=== PATIENT | male | born 1935 | race Two or more races ===

== ENCOUNTER 2017-05-19 17:33 | Emergency (ER) | payer MEDICARE ==
[2017-05-19 17:48] VITALS: BP 129/78
--- NOTE | 2017-05-19 17:51 | UC ---
Dental HPI - HPI Summary HPI Summary: Pt presents s/p fall 30min [employer]. He tells me that he was walking around [place] and tripped on an uneven piece of sidewalk. Fell face first and tried to put his hands out, but could not in time and hit his mouth on the ground. Injured his upper lip and fractured his front upper tooth. No LOC. Came directly to . Denies headache, dizziness, vision changes, or weakness. - History of Current Complaint Chief Complaint: UCDentalProblem Stated Complaint: NOSE,MOUTH INJURIES FROM FALL Time Seen by Provider: 05/19/17 17:50 Hx Obtained From: Patient Severity: Mild Pain Intensity: 2 Pain Scale Used: 0-10 Numeric - Allergies/Home Medications Allergies/Adverse Reactions: Allergies Allergy/AdvReac Type Severity Reaction Status Date / Time No Known Allergies Allergy Verified 05/19/17 17:45 Home Medications: Home Medications NK [No Home Medications Reported] 05/19/17 [History Confirmed 05/19/17] PMH/Surg Hx/FS Hx/Imm Hx Previously Healthy: Yes - Surgical History Surgical History: None - Family History Known Family History: Positive: Unknown - Social History Occupation: Retired Lives: With Family Alcohol Use: None Substance Use Type: None Smoking Status (MU): Never Smoked Tobacco Review of Systems Constitutional: Negative Skin: Other - Upper lip lac Eyes: Negative ENT: Dental Pain Respiratory: Negative Cardiovascular: Negative Gastrointestinal: Negative Musculoskeletal: Negative Neurological: Negative Psychological: Negative All Other Systems Reviewed And Are Negative: Yes Physical Exam - Summary Physical Exam Summary: GENERAL: NAD. WDWN. No pain distress. SKIN: 2mm puncture wound to midline upper lip on the inside mucosa. HEENT: Head: AT/NC. No dahl's sign. Eyes: PERRLA. EOM intact. Conjunctiva clear without inflammation or discharge. Ears: Hearing grossly normal. TMs intact, no bulging, erythema, or edema. DENTAL: Fracture and lateral displacement of tooth #9 NECK: Supple. Nontender. FROM CHEST: CTAB. No r/r/w. No accessory muscle use. Breathing comfortably and in no distress. CV: RRR. Without m/r/g. Pulses intact. Brisk cap refill. MSK: FROM b/l shoulders, elbows, and wrists. NTTP. NEURO: A&Ox3. 3 word recall, remote, recent memory, ability to follow 2-step directions, and attention intact. CN II XII grossly intact. [id number] are intact. Gait with normal base. Romberg: maintains balance, no pronator drift. Normal speech. No facial drooping. PSYCH: Age appropriate behavior. Triage Information Reviewed: Yes Vital Signs: Initial Vital Signs Temp 98.6 F 05/19/17 17:42 Pulse 65 05/19/17 17:42 Resp 18 05/19/17 17:42 BP 129/78 05/19/17 17:42 Pulse Ox 99 05/19/17 17:42 Dental Complaint Course/Dx - Course Course Of Treatment: Dental fracture. Lip puncture wound by tooth. Fall. No need for sutures. Advised f/u with dentist MYRA for loose and fractured tooth. - Differential Dx/Diagnosis Provider Diagnoses: Dental fracture tooth #9. Upper lip puncture wound. Fall Discharge - Discharge Plan Condition: Stable Disposition: HOME Patient Education Materials: Acute Dental Trauma (ED) Referrals: Shad Estes MD [Primary Care Provider] - Additional Instructions: If you develop a fever, shortness of breath, chest pain, new or worsening symptoms - please call your PCP or go to the ED. 1) Please call your dentist as soon as possible for a follow up appointment regarding your tooth
== END 2017-05-19 18:06 | disposition home or self-care (01) ==
LOC: UCEAST 17:33
DX: S02.5XXA Fracture of tooth (traumatic), initial encounter for closed fracture (principal); S01.531A Puncture wound without foreign body of lip, initial encounter; W01.198A Fall on same level from slipping, tripping and stumbling with subsequent striking against other object, initial encounter; Y93.01 Activity, walking, marching and hiking; Y92.214 College as the place of occurrence of the external cause
CPT/HCPCS: 99211; G0463

== ENCOUNTER 2017-10-11 12:29 | Inpatient (IN) | payer MEDICARE ==
--- NOTE | 2017-10-04 03:53 | HP ---
HISTORY AND PHYSICAL: DATE OF ADMISSION/SURGERY: 10/11/17 DATE OF OFFICE VISIT: 10/03/17 SURGEON: Karyn Alvarez MD * (DICTATED BY NEVIN MCKEON) PROCEDURE: Right total knee arthroplasty. CHIEF COMPLAINT: Right knee pain. HISTORY OF PRESENT ILLNESS: Mr. 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 He has failed conservative treatment and elected to proceed with a right total knee arthroplasty, which is scheduled for 10/11/[address] Alvarez. PAST MEDICAL HISTORY: Denies. PAST SURGICAL HISTORY: Mitral valve repair, tonsillectomy, and trabeculectomy. CURRENT MEDICATIONS: Flaxseed. ALLERGIES: None. FAMILY HISTORY: Denies. SOCIAL HISTORY: He is an 82-year-old gentleman, lives with his spouse. He is a retired professor. He does not smoke or use drugs or alcohol. REVIEW OF SYSTEMS: A complete 14-point review of systems was reviewed with the patient. It is all negative or noncontributory. He denies history of DVT, PE, hepatitis, HIV, or anesthesia problems. PHYSICAL EXAMINATION GENERAL: He is well developed, well nourished, in no acute distress. VITAL SIGNS: He stands 68 inches tall, weighs 137 pounds. His blood pressure is 104/80 and his heart rate is 52. HEENT: Normocephalic, atraumatic. NECK: Supple. No palpable lymph nodes. PULMONARY: The lungs are clear to auscultation bilaterally. CARDIO: Regular rate and rhythm. Strong S1, S2. ABDOMEN: Soft, nontender, nondistended. NEUROLOGICAL: He is alert and oriented x3. MUSCULOSKELETAL: Right lower extremity: The skin is intact. There are no open wounds or abrasions. There is a moderate joint effusion. He has some tenderness over the medial and lateral joint line. His range of motion is 15 to 120 degrees of flexion. He has a 2+ posterior tibialis pulse and a 1+ dorsalis pedis pulse. He has intact sensation in his lower extremity. Muscle group strengths are intact at 5/5. ASSESSMENT AND PLAN: Mr. Hickey is an 82-year-old gentleman with end-stage osteoarthritis of the right knee. He has failed conservative treatment and elected to proceed with a right total knee arthroplasty, which is scheduled for 10/11/[address] Alvarez discussed the risks and benefits of the surgery at today's visit and all of his questions were answered. He will follow up with Dr. Alvarez 2 weeks after the surgery. NEVIN MCKEON [id number]/[facility] #: [id number] MURIEL
[~2017-10-11 12:29] MED LIST: Buffered Lidocaine 0.9% SYRIN* 5 ML/SYR SYRINGE INTRADERM ONE; Midazolam* 1 MG/ML 2 ML VIAL (2 MG) ONE; fentaNYL* 50 MCG/ML 2 ML VIAL (100 MCG VIAL) ONE
[2017-10-11] MEDS ORDERED: ceFAZolin 2 GM PREMIX (*) 2 GM/50 ML BAG IVPB ONE (12:32)
--- OUTSIDE RECORDS SUMMARY | 2017-10-11 12:37 | XMS REPORT ---
:1935 External Reference #:[id number] Author Organization [employer] Address [address] [place] [address] Phone [phone] Care Team Providers Name Role Phone Shad Estes III, MD Primary Care Physician Unavailable Payers Type Date Identification Numbers Payment Provider Subscriber Medicare Primary Expires: Policy Number: Medicare [place]en 2016 [id number] Ruperto PayID: [id number] [address] [place] [address] Commercial Effective: 2010 Policy Number: Aetna-CP N[place]en Hickey [id number] Expires: 2016 Group Number: [id number] [address] PayID: [id number] [place] [address] Medigap Part B Expires: 2010 Policy Number: Aetna Insurance [place]en Edgar [id number] Ruperto Group Number: [id number] [address] PayID: [id number] [place] [address] Medigap Part B Effective: Policy Number: Aetna Medicare Wilfried H 2016 [id number] Luannradhaallie Group Number: [id number] [address] PayID: [id number] [place] [id number] Problems Date Description Provider Status Onset: 05/25/2011 Pure hypercholesterolemia Shad Estes M.D. Active Onset: 05/25/2011 Mitral valve disorder Shad Estes M.D. Active Onset: 10/24/2012 Disorder of prostate Shad Estes M.D. Active Onset: 02/11/2015 Mitral leaflet abnormality Shad Estes M.D. Active Onset: 04/07/2016 Localized, primary osteoarthritis of Delgado Guerrier MD Active the hand Onset: 09/14/2017 Localized, primary osteoarthritis Karyn Alvarez M.D. Active Family History Date Family Member(s) Problem(s) Comments General No Current Problems Father due to Abdominal () - secondary to MVA Aneurysm Social History Type Date Description Comments Marital Status Lives With Spouse Occupation Professor Occupation Retired Cigarette Use Never Smoked Cigarettes ETOH Use 10/24/2012 Occasionally consumes alcohol Smoking Patient is a former smoker Smoked for 2yrs-pipe smoke-tobacco Recreational Drug Use Denies Drug Use Daily Caffeine Regular Coffee rarely Exercise Type/Frequency Exercises regularly daily exercise. Walks to work daily 40min [address] way. and : cycle, M-W-Fr rows. summer cycles to work 10-[address] M-W-F row 50min, Sun- walks 4 mi [place] Allergies, Adverse Reactions, Alerts Date Description Reaction Status Severity Comments 03/20/2007 NKDA active Medications Medication Date Status Form Strength Qnty SIG Indications Ordering Provider Flax Seeds Active 1 tbsp daily Unknown /0000 Metoprolol 05/06 Hx Tablets 50mg 90tab / tab by Ruddy Rios /2012 s mouth every Brand, - day M.D. 10/24 Metoprolol 05/11 Hx 25mg 90uni 1 po qd Shad Weaver /2010 Cha Altman M.D. 05/06 Lopressor 02/22 Hx Tablets 50mg 45tab 1/2 po qd Qutaybeh s S. - [place], 05/11 M.D. Lopressor 09/14 Hx Tablets 25mg 30tab 1 po qd Qutaybeh s S. - [place], 02/22 M.D. Coumadin 08/25 Hx Tablets 5mg 90tab as directed Qutayb s S. - [place], 12/21 M.D. Coumadin 08/25 Hx Tablets 2mg 90tab as directed Qutaybeh s [facility], 12/21 M.D. Lisinopril 08/24 Hx Tablets 5mg 90tab 1 po qd Qutaybeh s [facility], 05/18 M.D. /2010 Coumadin 08/13 Hx Tablets 2.5mg 90tab use as Qutayb s directed [facility], 08/25 M.D. /2008 Asa 08/13 Hx 81mg 90uni 1 po qd Qutaybeh ts [facility], 02/11 M.D. /2014 Simvastatin 08/13 Hx Tablets 20mg 90tab 1 po qhs Qutaybeh [facility], 05/18 M.D. /2010 Enalapril 08/13 Hx Tablets 2.5mg 30tab 1 po qd Qutaybeh Male [facility], 08/24 M.D. Glucosamine/Ch 07/14 Hx Tablets 2 po qd Shad Weaver ondroitin/LUIS Cha Estes M.D. 08/24 Timoptic 03/21 Hx Solution 0.25% 1 GTT OU Shad Weaver /Cha Luna M.D. 06/19 Selenium 03/21 Hx Tablets 200mcg 1 PO qd Shad Weaver /Cha Luna M.D. 08/24 Aspirin Hx Tablets 325mg 1 PO qd prn Meera /Kassidy ESTEBAN, Cha Weaver 03/21 Xalatan Hx Solution 0.005% OU QHS 1 GGT Other /0000 Physician - Practices 06/19 Glucosamine Hx Capsules 500Comp 1 capsule Unknown Chondroitin /0000 ocassionally 500 Complex - 09/25 Selenium Hx ocationally Unknown /0000 - 02/14 Dorzolamide Hx Solution 22.3-6.8m Unknown HCL/Timolol /0000 g/ml Maleate - 02/11 Travatan Z Hx Solution 0.004% Masha, / Cha Huang MD 02/11 Apraclonidine / Hx Solution 0.5% Peewee HCL /0000 , Cha Tiwari MD 02/11 Prednisolone 00 Hx Suspension 1% Pee[place]e Acetate /0000 , Cha Tiwari MD 07/06 Turmeric 00/ Hx 1 cap po Unknown /0000 daily - 06/29 Medications Administered in Office Medication Date Status Form Strength Qnty SIG Indications Ordering Provider Celestone 3 mg Administered Injection Delgado and 3mg 017 MD Chey Immunizations CPT Code Status Date Vaccine Lot # [id number] Given 02/11/2015 Pneumococcal Conjugate Vaccine 13 Valent For [id number] Intramuscular Use [id number] Given 05/25/2011 Tetanus And Diptheria (Td) For Adult Use [id number] Preservative Free 30136 Given 11/16/1998 Pneumovax (History By Patient) 138iu Vital Signs Date Vital Result Comment 10/03/2017 Height 68 inches 5'8" Weight 137.00 lb Heart Rate 52 /min BP Systolic Sitting 104 mmHg BP Diastolic Sitting 80 mmHg Respiratory Rate 16 /min Body Temperature 96.7 F BMI (Body Mass Index) 20.8 kg/m2 09/25/2017 Height 68 inches 5'8" Weight 138.25 lb Heart Rate 58 /min BP Systolic 110 mmHg BP Diastolic 72 mmHg Body Temperature 97.3 F O2 % BldC Oximetry 97 % BMI (Body Mass Index) 21.0 kg/m2 09/14/2017 Height 68 inches 5'8" Weight 136.00 lb Heart Rate 68 /min BP Systolic 122 mmHg BP Diastolic 74 mmHg BMI (Body Mass Index) 20.7 kg/m2 06/20/2017 Height 67 inches 5'7" Weight 142.00 lb pt states 136 at home Heart Rate 64 /min BP Systolic Sitting 118 mmHg Lue reg cuff BP Diastolic Sitting 74 mmHg Lue reg cuff BP Systolic Standing 108 mmHg Lue BP Diastolic Standing 74 mmHg Lue Respiratory Rate 16 /min BMI (Body Mass Index) 22.2 kg/m2 Ejection Fraction 50-55% 10/01/12 02/15/2017 Height 67.25 inches 5'7.25" Weight 138.00 lb pt. states wt. naked this Am Heart Rate 59 /min BP Systolic Sitting 110 mmHg BP Diastolic Sitting 85 mmHg Body Temperature 96.9 F O2 % BldC Oximetry 98 % BMI (Body Mass Index) 21.5 kg/m2 06/30/2016 Height 68 inches 5'8" Weight 140.00 lb Heart Rate 70 /min BP Systolic Sitting 120 mmHg Lue reg cuff BP Diastolic Sitting 76 mmHg Lue reg cuff BP Systolic Standing 112 mmHg Lue reg cuff BP Diastolic Standing 80 mmHg Lue reg cuff Respiratory Rate 17 /min BMI (Body Mass Index) 21.3 kg/m2 Ejection Fraction 50-55% date 10/01/2012 ECHO 04/07/2016 Height 68 inches 5'8" Weight 137.00 lb Heart Rate 63 /min BP Systolic 132 mmHg BP Diastolic 74 mmHg BMI (Body Mass Index) 20.8 kg/m2 02/15/2016 Height 67.25 inches 5'7.25" Weight 143.00 lb Heart Rate 60 /min BP Systolic Sitting 114 mmHg BP Diastolic Sitting 84 mmHg O2 % BldC Oximetry 97 % BMI (Body Mass Index) 22.2 kg/m2 07/22/2015 Weight 140.00 lb Heart Rate 65 /min BP Systolic Sitting 109 mmHg BP Diastolic Sitting 60 mmHg Body Temperature 96.4 F 07/08/2015 Height 68 inches 5'8" Weight 142.00 lb with shoes ( 137 w/o clothes at gym) Heart Rate 62 /min BP Systolic Sitting 102 mmHg Ra reg cuff BP Diastolic Sitting 74 mmHg Ra reg cuff BP Systolic Standing 108 mmHg Ra reg cuff BP Diastolic Standing 76 mmHg Ra reg cuff Respiratory Rate 16 /min BMI (Body Mass Index) 21.6 kg/m2 Ejection Fraction 50-55% date 10/01/12 ECHO 02/11/2015 Height 68 inches 5'8" Weight 141.00 lb Heart Rate 67 /min BP Systolic Sitting 118 mmHg BP Diastolic Sitting 68 mmHg Body Temperature 97.3 F O2 % BldC Oximetry 67 % BMI (Body Mass Index) 21.4 kg/m2 06/19/2014 Height 68.5 inches 5'8.50" Weight 144.25 lb Heart Rate 57 /min BP Systolic Sitting 112 mmHg BP Diastolic Sitting 56 mmHg Body Temperature 97.2 F O2 % BldC Oximetry 96 % BMI (Body Mass Index) 21.6 kg/m2 03/13/2014 Height 68.5 inches 5'8.50" Weight 140.00 lb no shoes BP Systolic Sitting 98 mmHg LA, reg cuff BP Diastolic Sitting 74 mmHg LA, reg cuff BP Systolic Standing 94 mmHg LA BP Diastolic Standing 70 mmHg LA Respiratory Rate 16 /min BMI (Body Mass Index) 21.0 kg/m2 10/24/2012 Height 69 inches 5'9" Weight 140.00 lb Heart Rate 66 /min BP Systolic Sitting 124 mmHg BP Diastolic Sitting 80 mmHg BMI (Body Mass Index) 20.7 kg/m2 05/25/2011 Height 69 inches 5'9" Weight 140.00 lb Heart Rate 68 /min BP Systolic Sitting 98 mmHg BP Diastolic Sitting 50 mmHg BMI (Body Mass Index) 20.7 kg/m2 05/18/2010 Height 68.75 inches 5'8.75" Weight 138.00 lb per patient Heart Rate 64 /min BP Systolic Sitting 92 mmHg BP Diastolic Sitting 62 mmHg BMI (Body Mass Index) 20.5 kg/m2 08/13/2008 Height 68.75 inches 5'8.75" Weight 138.00 lb Heart Rate 92 /min BP Systolic Sitting 100 mmHg L BP Diastolic Sitting 68 mmHg L BP Diastolic Standing 68 mmHg BMI (Body Mass Index) 20.5 kg/m2 06/05/2008 Height 68.75 inches 5'8.75" Weight 142.00 lb Heart Rate 50 /min BP Systolic Sitting 106 mmHg BP Diastolic Sitting 80 mmHg BP Systolic Standing 100 mmHg BP Diastolic Standing 80 mmHg BMI (Body Mass Index) 21.1 kg/m2 04/29/2008 Height 68.75 inches 5'8.75" Weight 144.00 lb Heart Rate 60 /min BP Systolic Sitting 90 mmHg BP Diastolic Sitting 70 mmHg BMI (Body Mass Index) 21.4 kg/m2 06/06/2007 Height 69 inches 5'9" Weight 140.00 lb Heart Rate 60 /min BP Systolic Sitting 90 mmHg BP Diastolic Sitting 60 mmHg BMI (Body Mass Index) 20.7 kg/m2 03/21/2007 Height 69 inches 5'9" Weight 146.00 lb Heart Rate 68 /min BP Systolic Sitting 96 mmHg BP Diastolic Sitting 60 mmHg BMI (Body Mass Index) 21.6 kg/m2 Results Test Date Test Result H/L Range Note CBC Auto Diff 10/03/2017 White Blood Count 5.9 10^3/uL 3.5-10.8 Red Blood Count 4.67 10^6/uL 4.00-5.40 Hemoglobin 15.6 g/dL 14.0-18.0 Hematocrit 46 % 42-52 Mean Corpuscular Volume 98 fL High 80-94 Mean Corpuscular Hemoglobin 33 pg High 27-31 Mean Corpuscular HGB Conc 34 g/dL 31-36 Red Cell Distribution Width 14 % 10.5-15 Platelet Count 142 10^3/uL Low 150-450 Mean Platelet Volume 7.9 um3 7.4-10.4 Abs Neutrophils 3.4 10^3/uL 1.5-7.7 Abs Lymphocytes 1.9 10^3/uL 1.0-4.8 Abs Monocytes 0.5 10^3/uL 0-0.8 Abs Eosinophils 0.1 10^3/uL 0-0.6 Abs Basophils 0 10^3/uL 0-0.2 Abs Nucleated RBC 0 10^3/uL Granulocyte % 56.3 % 38-83 Lymphocyte % 32.8 % 25-47 Monocyte % 8.8 % High 0-7 Eosinophil % 1.6 % 0-6 Basophil % 0.5 % 0-2 Nucleated Red Blood Cells % 0.1 Inr/Protime 10/03/2017 Inr 0.93 0.77-1.02 Laboratory test finding 10/03/2017 Partial Thrombo Time 31.9 seconds 26.0 -36.3 PTT Urinalysis Profile 10/03/2017 Urine Color Yellow Urine Appearance Clear Urine Specific [place] 1.025 1.010-1.030 Urine pH 5.0 5-9 Urine Urobilinogen Negative Negative Urine Ketones Negative Negative Urine Protein Negative Negative Urine Leukocytes Negative Negative Urine Blood Negative Negative * * Negative 1 Urine Nitrite Negative Negative Urine Bilirubin Negative Negative Urine Glucose Negative Negative Type & Screen 10/03/2017 Patient Blood Type A Positive Antibody Screen NEGATIVE Comp Metabolic Panel 10/03/2017 Sodium 139 mmol/L 135-145 Potassium 4.1 mmol/L 3.5-5.0 Chloride 102 mmol/L 101-111 Co2 Carbon Dioxide 30 mmol/L 22-32 Anion Gap 7 mmol/L 2-11 Glucose 93 mg/dL 70-100 Blood Urea Nitrogen 22 mg/dL 6-24 Creatinine 0.93 mg/dL 0.67-1.17 BUN/Creatinine Ratio 23.7 High 8-20 Calcium 9.0 mg/dL 8.6-10.3 Total Protein 6.6 g/dL 6.4-8.9 Albumin 4.4 g/dL 3.2-5.2 Globulin 2.2 g/dL 2-4 Albumin/Globulin Ratio 2.0 1-3 Total Bilirubin 1.10 mg/dL High 0.2-1.0 Alkaline Phosphatase 35 U/L 34-104 Alt 16 U/L 7-52 Ast 18 U/L 13-39 Egfr Non- 77.4 >60 Egfr 93.7 >60 2 Lipid Profile (Trig/Chol/HDL) 02/13/2017 Triglycerides 84 mg/dL 3 Cholesterol 205 mg/dL 4 HDL Cholesterol 59.8 mg/dL 5 LDL Cholesterol 128 mg/dL 6 Laboratory test finding 02/13/2017 Glucose 86 mg/dL 70-100 7 PSA Screening 5.937 ng/mL High 0-4.000 8 Basic Metabolic Panel 02/03/2016 Sodium 141 mmol/L 133-145 Potassium 4.2 mmol/L 3.5-5.0 Chloride 106 mmol/L 101-111 Co2 Carbon Dioxide 31 mmol/L 22-32 Anion Gap 4 mmol/L 2-11 Glucose 91 mg/dL 70-100 Blood Urea Nitrogen 18 mg/dL 6-24 Creatinine 0.90 mg/dL 0.67-1.17 BUN/Creatinine Ratio 20.0 8-20 Calcium 8.6 mg/dL 8.6-10.3 Egfr Non- 80.8 >60 Egfr 103.9 >60 9 Laboratory test finding 02/03/2016 PSA Diagnostic 6.306 ng/mL High 0- 4.000 10 Lipid Profile (Trig/Chol/HDL) 02/03/2016 Triglycerides 81 mg/dL 11 Cholesterol 190 mg/dL 12 HDL Cholesterol 52.6 mg/dL 13 LDL Cholesterol 121 mg/dL 14 Urinalysis Profile 07/19/2015 Urine Color Yellow Urine Appearance Clear Urine Specific [place] 1.017 1.010-1.030 Urine pH 6.0 5-9 Urine Urobilinogen Negative Negative Urine Ketones Negative Negative Urine Protein Negative Negative Urine Leukocytes Negative Negative Urine Blood Negative Negative Urine Nitrite Negative Negative Urine Bilirubin Negative Negative Urine Glucose Negative Negative Laboratory test finding 07/19/2015 PSA Diagnostic 4.882 ng/mL High 0- 4.000 15 Lipid Profile 06/02/2014 Triglycerides 63 mg/dL 16, 17 (Trig/Chol/HDL) Cholesterol 172 mg/dL 16, 18 HDL Cholesterol 55.5 mg/dL 16, 19 LDL Cholesterol 104 mg/dL 16, 20 Laboratory test finding 06/02/2014 PSA Diagnostic 3.404 ng/mL 0-4.000 16 , 21 Laboratory test finding 06/10/2013 PSA Diagnostic 4.246 ng/mL High 0- 4.000 22 Lipid Profile 10/15/2012 Triglycerides 59 mg/dL 40-200 (Trig/Chol/HDL) Cholesterol 202 mg/dL High Less than 200 HDL Cholesterol 62 mg/dL High 40-60 23 Cholesterol/HDL Ratio 3.3 Average 1-4.44 LDL Cholesterol 128.2 High Less Than 100 24 Laboratory test finding 10/15/2012 PSA Screening 4.5 ng/mL High 0-4.0 25 Basic Metabolic Panel 10/15/2012 Sodium 138 mmol/L 133-145 Potassium 4.4 mmol/L 3.5-5.0 Chloride 105 mmol/L 101-111 Co2 Carbon Dioxide 27.0 mmol/L 22-32 Anion Gap 6.0 mmol/L 2-11 Glucose 83 mg/dL 70-100 Blood Urea Nitrogen 20 mg/dL 6-24 Creatinine 1.00 mg/dL 0.50-1.40 BUN/Creatinine Ratio 20.0 8-20 Calcium 9.0 mg/dL 8.1-9.9 Egfr Non- 72.1 >60 Egfr 92.7 >60 26 Comp Metabolic Panel 05/18/2011 Sodium 140 mmol/L 135-145 Potassium 4.2 mmol/L 3.5-5.0 Chloride 107 mmol/L 101-111 Co2 (Carbon Dioxide) 27.0 mmol/L 22-32 Anion Gap 6.0 mmol/L 2-11 27 Glucose 77 mg/dL 70-100 BUN 20 mg/dL 6-24 Creatinine 0.9 mg/dL 0.50-1.40 One Over Creatinine 1.11 BUN/Creatinine Ratio 22.2 High 8-20 Calcium 9.0 mg/dL 8.1-9.9 Total Protein 6.4 GM/DL 6.2-8.1 Albumin 4.3 GM/DL 3.2-5.2 Globulin 2.1 GM/DL 2-4 Albumin/Globulin Ratio 2.0 1-3 Bilirubin Total 1.3 mg/dL 0.4-1.5 28 Alkaline Phosphatase 46 U/L 39-117 Alt (SGPT) 22 U/L 17-63 Ast (Sgot) 23 U/L 12-42 eGFR Non- 81.8 > 60 eGFR 105.2 > 60 29 Lipid Profile (Trig/Chol/HDL) 05/18/2011 Triglyceride 69 mg/dL 40-200 Cholesterol 200 mg/dL Less Than 200 30 High Density Lipoprotein 68 mg/dL High 40-60 31 Cholesterol/HDL Ratio 2.94 AVERAGE 1-4.97 Low Density Lipoprotein 118 mg/dL High Less Than 100 32 Laboratory test finding 05/18/2011 PSA,Diagnostic 3.67 NG/ML 0-4 33 Manual Differential 04/14/2010 Polysegmented Neutrophil 35 % Low 38-83 Band Neutrophil 1 % 0-8 Lymphocyte 51 % High 25-47 Monocyte 6 % 0-13 Eosinophil 6 % 0-6 Basophil 1 % 0-2 Absolute Neutrophil Count 1.2 Anisocytosis SLIGHT Macrocytosis 1+ RBC Morphology (SEE NOTE) 34 Laboratory test finding 04/14/2010 PSA Screening 2.80 NG/ML 0-4 35 CBC With Electronic Diff 04/14/2010 White Blood Count 3.6 CUMM Low 4.8- 10.8 Red Cell Count 4.41 CUMM Low 4.6-6.2 Hemoglobin 15.0 g/dL 14.0-18.0 Hematocrit 45 % 42-52 Mean Corpuscular Volume 102 um3 High 80-94 Mean Corpuscular Hemoglob 34 pg High 27-31 Mean Corpuscular HGB Cone 34 g/dL 32-36 Redcell Distribution WDTH 15 % 10.5-15 Platelet Count 134 CUMM Low 150-450 Mean Platelet Volume 9.6 um3 7.4-10.4 36 Lipid Profile (Trig/Chol/HDL) 04/14/2010 Triglyceride 56 mg/dL 40-200 Cholesterol 166 mg/dL Less Than 200 37 High Density Lipoprotein 55 mg/dL 40-60 38 Cholesterol/HDL Ratio 3.02 AVERAGE 1-4.97 Low Density Lipoprotein 100 mg/dL Less Than 100 39 Comp Metabolic Panel 04/14/2010 Sodium 134 mmol/L Low 135-145 Potassium 3.9 mmol/L 3.5-5.0 Chloride 103 mmol/L 101-111 Co2 (Carbon Dioxide) 30.0 mmol/L 22-32 Anion Gap 1.0 mmol/L Low 2-11 40 Glucose 87 mg/dL 70-100 BUN 18 mg/dL 6-24 Creatinine 0.80 mg/dL 0.50-1.40 One Over Creatinine 1.20 BUN/Creatinine Ratio 22.5 High 8-20 Calcium 8.0 mg/dL Low 8.1-9.9 Total Protein 6.1 GM/DL Low 6.2-8.1 Albumin 3.9 GM/DL 3.2-5.2 Globulin 2.2 GM/DL 2-4 Albumin/Globulin Ratio 1.8 1-3 Bilirubin Total 0.9 mg/dL 0.4-1.5 41 Alkaline Phosphatase 41 U/L 39-117 Alt (SGPT) 33 U/L 17-63 Ast (Sgot) 31 U/L 12-42 eGFR Non- 94.0 > 60 eGFR 120.9 > [address] Estes's Lab Panel 04/14/2010 TSH 3.27 MIU/ML 0.34-5.60 Laboratory test finding 04/13/2009 Alt (SGPT) 26 U/L 17-63 Lipid Profile (Trig/Chol/HDL) 04/13/2009 Triglyceride 41 mg/dL 40-200 Cholesterol 143 mg/dL Less Than 200 43 High Density Lipoprotein 52 mg/dL 40-60 44 Cholesterol/HDL Ratio 2.75 AVERAGE 1-4.97 Low Density Lipoprotein 83 mg/dL Less Than 100 45 Protime 01/18/2009 Inr 2.46 High 0.97-1.03 46 Protime 27.6 SEC High 11.5-12.2 47 Protime 11/27/2008 Inr 1.98 High 0.86-1.13 48 Protime 22.2 SEC High 10.7-13.6 49 Protime 11/05/2008 Inr 2.12 High 0.86-1.13 50 Protime 23.6 SEC High 10.7-13.6 51 Basic Metabolic Panel Stat 09/06/2008 Sodium 139 mmol/L 135-145 Potassium 3.8 mmol/L 3.5-5.0 Chloride 104 mmol/L 101-111 Co2 (Carbon Dioxide) 29.0 mmol/L 22-32 Anion Gap 6.0 mmol/L 2-11 52 Glucose 91 mg/dL 70-100 53 BUN 20 mg/dL 6-24 Creatinine 0.80 mg/dL 0.50-1.40 One Over Creatinine 1.20 BUN/Creatinine Ratio 25.0 High 8-20 Calcium 9.1 mg/dL 8.1-9.9 54 eGFR Non- 100.2 > 60 eGFR 121.2 > 60 55 CBC With Electronic Diff Stat 09/06/2008 White Blood Count 5.3 CUMM 4.8- 10.8 Red Cell Count 3.66 CUMM Low 4.6-6.2 Hemoglobin 12.1 g/dL Low 14.0-18.0 Hematocrit 36 % Low 42-52 Mean Corpuscular Volume 97 um3 High 80-94 Mean Corpuscular Hemoglob 33 pg High 27-31 Mean Corpuscular HGB Cone 34 g/dL 32-36 Redcell Distribution WDTH 14 % 10.5-15 Platelet Count 248 CUMM 150-450 Mean Platelet Volume 7.4 um3 7.4-10.4 Gran % 63.7 % 38-83 Lymph % 24.9 % Low 25-47 Mononuclear % 8.5 % 1-9 Eosinophil % 2.4 % 0-6 Basophil % 0.5 % 0-2 Abs Lymphs 1.3 1.0-4.8 Abs Mononuclear 0.4 0-0.8 Absolute Neutrophil Count 3.4 1.5-7.7 Abs Eosinophils 0.1 0-0.6 Abs Basophils 0 0-0.2 Laboratory test 09/06/2008 Culture STAPHYLOCOCCUS A <SEE 56, 57 finding Sensitivity NOTE> CS-1 09/06/2008 Clindamycin <=0.25 56 Ciprofloxacin <=0.5 56 Erythromycin <=0.25 56 Gentamicin <=0.5 56 Levofloxacin <=0.12 56 Linezolid 2 56 Oxacillin 1 56 Rifampin <=0.5 56 Trimeth-Sulfa <=10 56 Tetracycline <=1 56 Tigecycline <=0.12 56 Vancomycin <=0.5 56 Laboratory test finding 04/23/2008 TSH 2.55 MIU/ML 0.34-5.60 PSA,Diagnostic 3.74 NG/ML 0-4 58 Lipid Profile (Trig/Chol/HDL) 04/23/2008 Triglyceride 69 mg/dL 40-200 Cholesterol 208 mg/dL High Less Than 200 59 High Density Lipoprotein 70 mg/dL High 40-60 60 Cholesterol/HDL Ratio 2.97 AVERAGE 1-4.97 Low Density Lipoprotein 124 mg/dL High Less Than 100 61 Comp Metabolic Panel 04/23/2008 Sodium 138 mmol/L 135-145 Potassium 4.7 mmol/L 3.5-5.0 Chloride 106 mmol/L 101-111 Co2 (Carbon Dioxide) 29.0 mmol/L 22-32 Anion Gap 3.0 mmol/L 2-11 62 Glucose 87 mg/dL 70-100 63 BUN 16 mg/dL 6-24 Creatinine 0.90 mg/dL 0.50-1.40 One Over Creatinine 1.10 BUN/Creatinine Ratio 17.8 8-20 Calcium 8.9 mg/dL 8.1-9.9 64 Total Protein 6.0 GM/DL Low 6.2-8.1 Albumin 3.8 GM/DL 3.2-5.2 Globulin 2.2 GM/DL 2-4 Albumin/Globulin Ratio 1.7 1-3 Bilirubin Total 1.4 mg/dL 0.4-1.5 Alkaline Phosphatase 38 U/L Low 39-117 Alt (SGPT) 35 U/L 17-63 Ast (Sgot) 33 U/L 12-42 CBC With Electronic Diff 04/23/2008 White Blood Count 4.2 CUMM Low 4.8- 10.8 Red Cell Count 4.21 CUMM Low 4.6-6.2 Hemoglobin 14.4 g/dL 14.0-18.0 Hematocrit 42 % 42-52 Mean Corpuscular Volume 100 um3 High 80-94 Mean Corpuscular Hemoglob 34 pg High 27-31 Mean Corpuscular HGB Cone 34 g/dL 32-36 Redcell Distribution WDTH 14 % 10.5-15 Platelet Count 169 CUMM 150-450 Mean Platelet Volume 8.4 um3 7.4-10.4 Gran % 46.9 % 38-83 Lymph % 39.0 % 25-47 Mononuclear % 9.6 % High 1-9 Eosinophil % 3.6 % 0-6 Basophil % 0.9 % 0-2 Abs Lymphs 1.6 1.0-4.8 Abs Mononuclear 0.4 0-0.8 Absolute Neutrophil Count 2.0 1.5-7.7 Abs Eosinophils 0.2 0-0.6 Abs Basophils 0 0-0.2 Surgical Pathology 04/30/2007 Surgical <SEE 65 Pathology NOTE> CBC With Manual 03/26/2007 White Blood Count 4.4 CUMM Low 4.8-10.8 Diff Absolute Neutrophil Count 2.2 Atypical Lymph 1 % 0-6 Anisocytosis SLIGHT Band Neutrophil 3 % 0-8 Basophil 1 % 0-2 Hematocrit 43 % 42-52 Hemoglobin 14.8 g/dL 14.0-18.0 Eosenophil 2 % 0-6 Lymphocyte 34 % 5-47 Macrocytosis SLIGHT Mean Corpuscular HGB Cone 34 g/dL 32-36 Mean Corpuscular Hemoglob 34 pg High 27-31 Mean Corpuscular Volume 100 um3 High 80-94 Monocyte 11 % 0-13 Mean Platelet Volume 8.5 um3 7.4-10.4 Platelet Count 207 CUMM 150-450 Polysegmented Neutrophil 48 % 38-83 Red Cell Count 4.31 CUMM Low 4.6-6.2 Redcell Distribution WDTH 14 % 10.5-15 Comp Metabolic Panel 03/26/2007 One Over Creatinine 0.90 Anion Gap 7.0 mmol/L 2-11 66 Albumin/Globulin Ratio 2.0 1-3 Albumin 4.0 GM/DL 3.2-5.2 Alkaline Phosphatase 36 U/L Low 39-117 Alt (SGPT) 24 U/L 17-63 Ast (Sgot) 23 U/L 12-42 BUN 20 mg/dL 6-24 Calcium 9.1 mg/dL 8.7-10.2 Chloride 107 mmol/L 101-111 Co2 (Carbon Dioxide) 30.0 mmol/L 22-32 Globulin 2.0 GM/DL 2-4 Glucose 81 mg/dL 70-105 Potassium 5.0 mmol/L 3.5-5.0 Sodium 144 mmol/L 135-145 Bilirubin Total 1.5 mg/dL 0.4-1.5 Total Protein 6.0 GM/DL Low 6.2-8.1 BUN/Creatinine Ratio 18.2 8-20 Creatinine 1.1 mg/dL 0.5-1.4 Lipid Profile 03/26/2007 Cholesterol/HDL Ratio 3.60 AVERAGE 1-4.97 (Trig/Chol/HDL) Cholesterol 198 mg/dL Less Than 200 67 Triglyceride 69 mg/dL 40-200 High Density Lipoprotein 55 mg/dL 40-60 Low Density Lipoprotein 129 mg/dL High Less Than 100 68 Laboratory test finding 03/26/2007 PSA Screening 4.11 NG/ML High 0-4 69 TSH 2.28 MIU/ML 0.34-5.60 1 *Ascorbic acid is present which may interfere with detection of blood. 2 Because ethnic data is not always readily available, this report includes an eGFR for both -Americans and non- Americans. The National Kidney Disease Education Program (NKDEP) does not endorse the use of the MDRD equation for patients that are not between the ages of 18 and 70, are , have extremes of body size, muscle mass, or nutritional status, or are non- or non-. According to the National Kidney Foundation, irrespective of diagnosis, the stage of the disease is based on the level of kidney function: Stage Description GFR(mL/min/1.73 m(2)) 1 Kidney damage with normal or decreased GFR 90 2 Kidney damage with mild decrease in GFR 60-89 3 Moderate decrease in GFR 30-59 4 Severe decrease in GFR 15-29 5 Kidney failure <15 (or dialysis) 3 Desirable: <150 Borderline High: 150-199 High: 200-499 Very High: >500 4 Desirable: <200 Borderline High: 200-239 High: >239 5 Low: <40 Desirable: 40-60 High: >60 6 Desirable: <100 Near Optimal: 100-129 Borderline High: 130-159 High: 160-189 Very High: >189 7 FASTING 8 Serum levels of PSA measured using the [place] DXI Hybritech immunoassay should not be interpreted as absolute evidence of the presence or absence of disease. The PSA value should be used in conjunction with other pertinent clinical diagnostic procedures. The values obtained with different assay methods or kits cannot be used interchangeably. 9 Because ethnic data is not always readily available, this report includes an eGFR for both -Americans and non- Americans. The National Kidney Disease Education Program (NKDEP) does not endorse the use of the MDRD equation for patients that are not between the ages of 18 and 70, are , have extremes of body size, muscle mass, or nutritional status, or are non- or non-. According to the National Kidney Foundation, irrespective of diagnosis, the stage of the disease is based on the level of kidney function: Stage Description GFR(mL/min/1.73 m(2)) 1 Kidney damage with normal or decreased GFR 90 2 Kidney damage with mild decrease in GFR 60-89 3 Moderate decrease in GFR 30-59 4 Severe decrease in GFR 15-29 5 Kidney failure <15 (or dialysis) 10 Serum levels of PSA measured using the [place] DXI Hybritech immunoassay should not be interpreted as absolute evidence of the presence or absence of disease. The PSA value should be used in conjunction with other pertinent clinical diagnostic procedures. The values obtained with different assay methods or kits cannot be used interchangeably. 11 Desirable <150 Borderline high 150-199 High 200-499 Very High >500 12 Desirable <200 Borderline high 200-239 High >239 13 Low <40 Desirable: 40-60 High: >60 14 Desirable: <100 mg/dL Near Optimal: 100-129 mg/dL Borderline High: 130-159 mg/dL High: 160-189 mg/dL Very High: >189 mg/dL 15 Serum levels of PSA measured using the [place] DXI Hybritech immunoassay should not be interpreted as absolute evidence of the presence or absence of disease. The PSA value should be used in conjunction with other pertinent clinical diagnostic procedures. The values obtained with different assay methods or kits cannot be used interchangeably. 16 FASTING 10 HOUR 17 Desirable <150 Borderline high 150-199 High 200-499 Very High >500 18 Desirable <200 Borderline high 200-239 High >239 19 Low <40 Desirable: 40-60 High: >60 20 Desirable: <100 mg/dL Near Optimal: 100-129 mg/dL Borderline High: 130-159 mg/dL High: 160-189 mg/dL Very High: >189 mg/dL 21 Serum levels of PSA measured using the [place] DXI Hybritech immunoassay should not be interpreted as absolute evidence of the presence or absence of disease. The PSA value should be used in conjunction with other pertinent clinical diagnostic procedures. The values obtained with different assay methods or kits cannot be used interchangeably. 22 Serum levels of PSA measured using the [place] DXI Hybritech immunoassay should not be interpreted as absolute evidence of the presence or absence of disease. The PSA value should be used in conjunction with other pertinent clinical diagnostic procedures. The values obtained with different assay methods or kits cannot be used interchangeably. 23 HDL Interpretation: Undesirable: High Risk: Less than 40 mg/dL Desirable: Low Risk: Greater than 60 mg/dL 24 LDL Interpretation: Low Risk Optimal Level: LDL Less than 100 mg/dL Near or Above Optimal: LDL 100-129 mg/dL Borderline High Risk: LDL 130-159 mg/dL High Risk: LDL 160-189 mg/dL Very High Risk: LDL Greater than 189 mg/dL 25 Serum levels of PSA measured using the [place] DXI Hybritech immunoassay should not be interpreted as absolute evidence of the presence or absence of disease. The PSA value should be used in conjunction with other pertinent clinical diagnostic procedures. The values obtained with different assay methods or kits cannot be used interchangeably. 26 Because ethnic data is not always readily available, this report includes an eGFR for both -Americans and non- Americans. The National Kidney Disease Education Program (NKDEP) does not endorse the use of the MDRD equation for patients that are not between the ages of 18 and 70, are , have extremes of body size, muscle mass, or nutritional status, or are non- or non-. According to the National Kidney Foundation, irrespective of diagnosis, the stage of the disease is based on the level of kidney function: Stage Description GFR(mL/min/1.73 m(2)) 1 Kidney damage with normal or decreased GFR 90 2 Kidney damage with mild decrease in GFR 60-89 3 Moderate decrease in GFR 30-59 4 Severe decrease in GFR 15-29 5 Kidney failure <15 (or dialysis) 27 Anion gap measurement may be of limited value in the presence of any alkalosis, especially in a combined acid base disorder. . 28 A metabolite of Naproxen, O-desmethylnaproxen, has been shown to interfere with the [place] method for measuring total bilirubin. Samples from patients who have taken Naproxen have shown spurious elevation in total bilirubin levels. 29 Because ethnic data is not always readily available, this report includes an eGFR for both -Americans and non- Americans. The National Kidney Disease Education Program (NKDEP) does not endorse the use of the MDRD equation for patients that are not between the ages of 18 and 70, are , have extremes of body size, muscle mass, or nutritional status, or are non- or non-. According to the National Kidney Foundation, irrespective of diagnosis, the stage of the disease is based on the level of kidney function: Stage Description GFR(mL/min/1.73 m(2)) 1 Kidney damage with normal or decreased GFR 90 2 Kidney damage with mild decrease in GFR 60-89 3 Moderate decrease in GFR 30-59 4 Severe decrease in GFR 15-29 5 Kidney failure <15 (or dialysis) 30 CHOLESTEROL INTERPRETATION: Desirable: Less than 200 MG/DL Borderline-High Risk: 200-239 MG/DL High-Risk: 240 MG/DL and over 31 HDL INTERPRETATION: Undesirable: High Risk: Less than 40 MG/DL Desirable: Low Risk: Greater than 60 MG/DL 32 LDL INTERPRETATION: Low Risk Optimal Level: LDL Less than 100 MG/DL Near or Above Optimal: LDL 100-129 MG/DL Borderline High Risk: LDL 130-159 MG/DL High Risk: LDL 160-189 MG/DL Very High Risk: LDL Greater than 189 MG/DL 33 * SERUM LEVELS OF PSA MEASURED USING THE [employer] ACCESS HYBRITECH IMMUNOASSAY SHOULD NOT BE INTERPRETED ABSOLUTE EVIDENCE OF THE PRESENCE OR ABSENCE OF DISEASE. THE PSA VALUE SHOULD BE USED IN CONJUNCTION WITH OTHER PERTINENT CLINICAL DIAGNOSTIC PROCEDURES. The values obtained with different assay methods or kits cannot be used interchangeably. 34 REVIEWED BY DEMAR ODONNELL MD 35 * SERUM LEVELS OF PSA MEASURED USING THE [employer] ACCESS HYBRITECH IMMUNOASSAY SHOULD NOT BE INTERPRETED ABSOLUTE EVIDENCE OF THE PRESENCE OR ABSENCE OF DISEASE. THE PSA VALUE SHOULD BE USED IN CONJUNCTION WITH OTHER PERTINENT CLINICAL DIAGNOSTIC PROCEDURES. 36 Neutropenia % Lymphocytosis % 37 CHOLESTEROL INTERPRETATION: Desirable: Less than 200 MG/DL Borderline-High Risk: 200-239 MG/DL High-Risk: 240 MG/DL and over 38 HDL INTERPRETATION: Undesirable: High Risk: Less than 40 MG/DL Desirable: Low Risk: Greater than 60 MG/DL 39 LDL INTERPRETATION: Low Risk Optimal Level: LDL Less than 100 MG/DL Near or Above Optimal: LDL 100-129 MG/DL Borderline High Risk: LDL 130-159 MG/DL High Risk: LDL 160-189 MG/DL Very High Risk: LDL Greater than 189 MG/DL 40 Anion gap measurement may be of limited value in the presence of any alkalosis, especially in a combined acid base disorder. . 41 A metabolite of Naproxen, O-desmethylnaproxen, has been shown to interfere with the [place] method for measuring total bilirubin. Samples from patients who have taken Naproxen have shown spurious elevation in total bilirubin levels. 42 Because ethnic data is not always readily available, this report includes an eGFR for both -Americans and non- Americans. The National Kidney Disease Education Program (NKDEP) does not endorse the use of the MDRD equation for patients that are not between the ages of 18 and 70, are , have extremes of body size, muscle mass, or nutritional status, or are non- or non-. According to the National Kidney Foundation, irrespective of diagnosis, the stage of the disease is based on the level of kidney function: Stage Description GFR(mL/min/1.73 m(2)) 1 Kidney damage with normal or decreased GFR 90 2 Kidney damage with mild decrease in GFR 60-89 3 Moderate decrease in GFR 30-59 4 Severe decrease in GFR 15-29 5 Kidney failure <15 (or dialysis) 43 CHOLESTEROL INTERPRETATION: Desirable: Less than 200 MG/DL Borderline-High Risk: 200-239 MG/DL High-Risk: 240 MG/DL and over 44 HDL INTERPRETATION: Undesirable: High Risk: Less than 40 MG/DL Desirable: Low Risk: Greater than 60 MG/DL 45 LDL INTERPRETATION: Low Risk Optimal Level: LDL Less than 100 MG/DL Near or Above Optimal: LDL 100-129 MG/DL Borderline High Risk: LDL 130-159 MG/DL High Risk: LDL 160-189 MG/DL Very High Risk: LDL Greater than 189 MG/DL 46 Recommended INR for Patients on Oral Anticoagulants Prophylaxis 2.0 - 3.0 Treatment of thrombosis 2.0 - 3.0 Prevention of embolism 2.0 - 3.0 Prevention of embolism from prosthetic heart valves 2.5 - 3.5 47 DIAGNOSIS,TREATMENT,AND THERAPY MUST BE BASED ON THE INR VALUE ALONE. 48 Recommended INR for Patients on Oral Anticoagulants Prophylaxis 2.0 - 3.0 Treatment of thrombosis 2.0 - 3.0 Prevention of embolism 2.0 - 3.0 Prevention of embolism from prosthetic heart valves 2.5 - 3.5 49 ATTENTION EFFECTIVE 07/15/08, THE IMPLEMENTATION OF NEW COAGULATION ANLAYZERS HAS CAUSED A SIGNIFICANT DIFFERENCE FOR PROTIME RESULTS IN SECONDS. THEREFORE, DIAGNOSIS,TREATMENT,AND THERAPY MUST BE BASED ON THE INR VALUE ONLY. 50 Recommended INR for Patients on Oral Anticoagulants Prophylaxis 2.0 - 3.0 Treatment of thrombosis 2.0 - 3.0 Prevention of embolism 2.0 - 3.0 Prevention of embolism from prosthetic heart valves 2.5 - 3.5 51 ATTENTION EFFECTIVE 07/15/08, THE IMPLEMENTATION OF NEW COAGULATION ANLAYZERS HAS CAUSED A SIGNIFICANT DIFFERENCE FOR PROTIME RESULTS IN SECONDS. THEREFORE, DIAGNOSIS,TREATMENT,AND THERAPY MUST BE BASED ON THE INR VALUE ONLY. 52 Anion gap measurement may be of limited value in the presence of any alkalosis, especially in a combined acid base disorder. . 53 Note change in reference range as of 10/24/07. The change was based on recommendations from the [place] [employer]. 54 Please note change in reference range effective 07 . 55 Because ethnic data is not always readily available, this report includes an eGFR for both -Americans and non- Americans. The National Kidney Disease Education Program (NKDEP) does not endorse the use of the MDRD equation for patients that are not between the ages of 18 and 70, are , have extremes of body size, muscle mass, or nutritional status, or are non- or non-. According to the National Kidney Foundation, irrespective of diagnosis, the stage of the disease is based on the level of kidney function: Stage Description GFR(mL/min/1.73 m(2)) 1 Kidney damage with normal or decreased GFR 90 2 Kidney damage with mild decrease in GFR 60-89 3 Moderate decrease in GFR 30-59 4 Severe decrease in GFR 15-29 5 Kidney failure <15 (or dialysis) 56 SOURCE LOCATION: CHEST 57 STAPHYLOCOCCUS AUREUS 58 * SERUM LEVELS OF PSA MEASURED USING THE [employer] ACCESS HYBRITECH IMMUNOASSAY SHOULD NOT BE INTERPRETED ABSOLUTE EVIDENCE OF THE PRESENCE OR ABSENCE OF DISEASE. THE PSA VALUE SHOULD BE USED IN CONJUNCTION WITH OTHER PERTINENT CLINICAL DIAGNOSTIC PROCEDURES. 59 CHOLESTEROL INTERPRETATION: Desirable: Less than 200 MG/DL Borderline-High Risk: 200-239 MG/DL High-Risk: 240 MG/DL and over 60 HDL INTERPRETATION: Undesirable: High Risk: Less than 40 MG/DL Desirable: Low Risk: Greater than 60 MG/DL 61 LDL INTERPRETATION: Low Risk Optimal Level: LDL Less than 100 MG/DL Near or Above Optimal: LDL 100-129 MG/DL Borderline High Risk: LDL 130-159 MG/DL High Risk: LDL 160-189 MG/DL Very High Risk: LDL Greater than 189 MG/DL 62 Anion gap measurement may be of limited value in the presence of any alkalosis, especially in a combined acid base disorder. . 63 Note change in reference range as of 10/24/07. The change was based on recommendations from the [place] [employer]. 64 Please note change in reference range effective 07 . 65 ---- RUN DATE: 05/02/07 [facility] NMI LIVE PAGE 1 RUN TIME: 1552 Specimen Inquiry RUN USER: INTERFACE [id number] NAVEEN HICKEY 71/M <REG REF 04/30> ([id number]) [facility] ,Rosa ami -- Specimen: [id number] SOUT Spec Date: 04/30/[address]: Jose D Younger i, MD Spec Type: SURGICAL P Received: 05/01/07-5980 Copies to: Shad Estes III, MD SPECIMEN 1) LEFT LOBE PROSTATE BIOPSY APEX (APEX 3) 2) LEFT LOBE PROSTATE BIOPSY BASE (BASE 3) 3) RIGHT LOBE PROSTATE BIOPSY APEX (APEX 3) 4) RIGHT LOBE PROSTATE BIOPSY BASE (BASE 4) HISTORY PRE-OP DIAGNOSIS: Grade III right lobe, diffuse firmness, PSA 4.11 GROSS DESCRIPTION 1) The specimen is received in formalin labelled [facility], Left Prostate Lobe [place], and consists of three, garcía, soft tissue cores measuring 1.7 cm., 1.8 cm., and 1.6 x 0.1 cm. Submitted entirely, one cassette. 2) The specimen is received in formalin [facility], Left Prostate Lobe Base, and consists of three, garcía, soft tissue cores measuring 1.9 cm., 1.7 cm., and 1.5 x 0.1 cm. Submitted entirely, one cassette. 3) The specimen is [facility], Right Prostate Lobe [place], and consists of three, garcía, soft tissue cores measuring 2.0 cm., 1.8 cm., and 1.5 x 0.1 cm. Submitted entirely, one cassette. 4) The specimen is received in formalin [facility], Right Prostate Lobe Base, and consists of four, garcía, soft tissue cores measuring 1.2 cm., 1.7 cm., 1.5 cm., and 1.8 x 0.1 cm. Submitted entirely, one cassette. DIAGNOSIS 1) Prostate, left apex, core biopsies: A) Benign prostate tissue. B) No evidence of neoplasia. 2) Prostate, left base, core biopsies: A) Benign prostate tissue. B) No evidence of neoplasia. 3) Prostate, right apex, core biopsies: -- DEPARTMENT OF PATHOLOGY, [address] [place] [address] [facility] Permit #[id number] Pal Garcia M.D. Director of Laboratories -- -- RUN DATE: 05/02/07 [facility] NMI LIVE PAGE 2 RUN TIME: 1552 Specimen Inquiry RUN USER: INTERFACE -- SPEC #: [id number] PATIENT: NAVEEN HICKEY #[id number] (Continued) -- DIAGNOSIS (Continued) A) Benign prostate tissue. B) No evidence of neoplasia. 4) Prostate, right base, core biopsies: A) Benign prostate tissue. B) No evidence of neoplasia. Signed Electronically by: PAL GARCIA MD 05/02/07 1552 -- -- DEPARTMENT OF PATHOLOGY, [address] [place] [address] [facility] Permit #[id number] Pal Garcia M.D. Director of Laboratories -- 66 Anion gap measurement may be of limited value in the presence of any alkalosis, especially in a combined acid base disorder. . 67 Classification: Desirable . 68 CALCULATED LDL APPROXIMATES THE VALUE OF A DIRECT LDL MEASUREMENT. Classification: Near or above optimal . 69 * SERUM LEVELS OF PSA MEASURED USING THE [employer] ACCESS HYBRITECH IMMUNOASSAY SHOULD NOT BE INTERPRETED ABSOLUTE EVIDENCE OF THE PRESENCE OR ABSENCE OF DISEASE. THE PSA VALUE SHOULD BE USED IN CONJUNCTION WITH OTHER PERTINENT CLINICAL DIAGNOSTIC PROCEDURES. Procedures Date CPT Code Description Status 09/14/201725088 Inject/Drain Joint/Bursa Major W/O US Completed 06/20/2017 35687 EKG Tracing & Interpretation Completed 06/30/2016 42699 EKG Tracing & Interpretation Completed 04/07/201684765 Inject/Drain Joint/Bursa Small W/O US Completed 07/08/2015 31519 EKG Tracing & Interpretation Completed 03/13/2014 00160 EKG Tracing & Interpretation Completed 11/01/2012 63143 EKG Tracing & Interpretation Completed 10/01/2012 63051 ECHO Transthoracic, Real-Time 2D With Doppler And Color Completed Flow 08/02/2010 Colonoscopy Completed 10/05/2008 99322 Holter Monitor Interpretation Completed 08/24/2008 24197 EKG Tracing & Interpretation Completed 08/13/2008 88919 EKG Tracing & Interpretation Completed 06/05/2008 03537 EKG Tracing & Interpretation Completed 06/01/2008 94118 Color Doppler Completed 06/01/2008 89161 Pulse Doppler & Continuous Wave Completed 06/01/2008 41849 Echocardiogram Completed 06/01/2008 44935 ECHO Transthoracic, Real-Time 2D With Doppler And Color Completed Flow 04/29/2008 65021 EKG Tracing & Interpretation Completed 12/08/2005 49278 Color Doppler Completed 12/08/2005 33776 Color Doppler Completed 12/08/2005 82562 Pulse Doppler & Continuous Wave Completed 12/08/2005 99805 Echocardiogram Completed 12/08/2005 36376 Echocardiogram Completed Encounters Type Date Location Provider CPT E/M Dx Office Visit 09/25/2017 9:40a [facility] [place] [address] Z01.818 [place] M17.11 I34.9 Office Visit 06/20/2017 3:30p [facility] Carito Shahid, 35190 I34.9 [place] I48.0 Office Visit 06/30/2016 3:30p [facility] Carito Shahid 69851 I34.9 [place] I48.0 Office Visit 04/07/2016 11:00a [facility] [place] [address] M18.12 [facility] S63.115A Office Visit 07/22/2015 10:00a [facility] Shad Estes, 33383 N40.1 - [place] R36.9 Office Visit 07/08/2015 9:00a [facility] Carito Shahid 63617 I34.0 [place] Office Visit 06/19/2014 1:00p [facility] Shad Estes, 32987 V72.83 - [place] 365.9 424.0 272.0 600.20 Office Visit 03/13/2014 8:15a [facility] Carito Shahid 10900 424.0 [place] Office Visit 11/01/2012 2:30p [facility] Carito Shahid 09387 424.0 [place] 427.31 Office Visit 05/25/2011 2:40p [facility] Shad Estes, 00289 V70.0 - [place] M.D. 272.0 424.0 V06.5 Office Visit 05/18/2010 2:00p DO Not Use [employer] AT [facility], 6[address]62 V70.0 [facility] 272[facility]0 424.0 602.9 Office Visit 08/13/2008 8:20a [facility], 45545 424.0 M.D. 272.2 425.9 427.31 Office Visit 06/05/2008 11:00a [facility] [address] 785.2 M.D. 424.0 786.05 Office Visit 04/29/2008 1:30p [facility], 49615 785.2 [facility] M.D. V70.0 Office Visit 06/06/2007 2:15p [facility], 71711 389.9 [facility].D. Office Visit 03/21/2007 9:30a [facility], 33461 602.9 [facility].D. Plan of Care Future Appointment(s):10/24/2017 9:45 am - Karyn Alvarez M.D. at [facility]10/11/2017 3:30 pm - Shady Fontana PA-C at [facility]10/11/2017 3:30 pm - NEVIN Cabello at [facility]10/11/2017 3:30 pm - Karyn Alvarez M.D. at [facility]02/18/2018 9:20 am - Shad Estes M.D. at [facility] - [id number]/01/2018 - Karyn Alvarez M.D.M17.11 Unilateral primary osteoarthritis, right kneeFollow up:Follow up: 2 weeks after jnauzhhW96.461 Effusion, right kneeM25.561 Pain in right knee
--- OUTSIDE RECORDS SUMMARY | 2017-10-11 12:37 | XMS REPORT ---
:1935 External Reference #:[id number] Author Organization [email or web address] Address [address] [place] [address] Phone [phone] Care Team Providers Name Role Phone Shad Estes III, MD Primary Care Physician Unavailable Payers Type Date Identification Numbers Payment Provider Subscriber Medicare Primary Expires: Policy Number: Medicare Naveen 2016 [id number] Ruperto PayID: [id number] [address] [place] [address] Commercial Effective: 2010 Policy Number: Aetna-CP Naveen Hickey [id number] Expires: 2016 Group Number: [id number] [address] PayID: [id number] [place] [address] Medigap Part B Expires: 2010 Policy Number: Aetna Insurance Naveen Edgar [id number] Ruperto Group Number: [id number] [address] PayID: [id number] [place] [address] Medigap Part B Effective: Policy Number: Aetna Medicare Wilfried H 2016 [id number] Luannradhaallie Group Number: [id number] [address] [place]ID: [id number] [place] [address] Problems Date Description Provider Status Onset: 05/25/2011 [...] Tablets 2mg 90tab as directed Qutaybeh s [facility], 12/21 M.D. Lisinopril 08/24 Hx Tablets 5mg 90tab 1 po qd Qutaybeh s [facility], 05/18 M.D. /2010 Coumadin 08/13 Hx Tablets 2.5mg 90tab use as Qutayb s directed [facility], 08/25 M.D. /2008 Asa 08/13 Hx 81mg 90uni 1 po qd Qutaybeh ts [facility], 02/11 M.D. /2014 Simvastatin 08/13 Hx Tablets 20mg 90tab 1 po qhs Qutaybeh [facility], 05/18 M.D. /2010 Enalapril 08/13 Hx Tablets 2.5mg 30tab 1 po qd Qutaybeh Male [facility], 08/24 M.D. Glucosamine/Ch 07/14 Hx Tablets [...] CPT Code Status Date Vaccine Lot # 72093 Given 02/11/2015 Pneumococcal Conjugate Vaccine 13 Valent For [id number] Intramuscular Use 50604 Given 05/25/2011 Tetanus And Diptheria (Td) For Adult Use [id number] Preservative Free 18846 Given 11/16/1998 Pneumovax (History By Patient) 138iu [...] Test Date Test Result H/L Range Note Lipid Profile (Trig/Chol/HDL) 02/13/2017 Triglycerides 84 mg/dL 1 Cholesterol 205 mg/dL 2 HDL Cholesterol 59.8 mg/dL 3 LDL Cholesterol 128 mg/dL 4 Laboratory test finding 02/13/2017 Glucose 86 mg/dL 70-100 5 PSA Screening 5.937 ng/mL High 0-4.000 6 Lipid Profile (Trig/Chol/HDL) 02/03/2016 Triglycerides 81 mg/dL 7 Cholesterol 190 mg/dL 8 HDL Cholesterol 52.6 mg/dL 9 LDL Cholesterol 121 mg/dL 10 Laboratory test finding 02/03/2016 PSA Diagnostic 6.306 ng/mL High 0- 4.000 11 Basic Metabolic Panel 02/03/2016 Sodium 141 mmol/L 133-145 Potassium 4.2 mmol/L 3.5-5.0 Chloride 106 mmol/L 101-111 Co2 Carbon Dioxide 31 mmol/L 22-32 Anion Gap 4 mmol/L 2-11 Glucose 91 mg/dL 70-100 Blood Urea Nitrogen 18 mg/dL 6-24 Creatinine 0.90 mg/dL 0.67-1.17 BUN/Creatinine Ratio 20.0 8-20 Calcium 8.6 mg/dL 8.6-10.3 Egfr Non- 80.8 >60 Egfr 103.9 >60 12 Urinalysis Profile 07/19/2015 Urine Color Yellow Urine Appearance Clear Urine Specific [place] 1.017 1.010-1.030 Urine pH 6.0 5-9 Urine Urobilinogen Negative Negative Urine Ketones Negative Negative Urine Protein Negative Negative Urine Leukocytes Negative Negative Urine Blood Negative Negative Urine Nitrite Negative Negative Urine Bilirubin Negative Negative Urine Glucose Negative Negative Laboratory test finding 07/19/2015 PSA Diagnostic 4.882 ng/mL High 0- 4.000 13 Lipid Profile 06/02/2014 Triglycerides 63 mg/dL 14, 15 (Trig/Chol/HDL) Cholesterol 172 mg/dL 14, 16 HDL Cholesterol 55.5 mg/dL 14, 17 LDL Cholesterol 104 mg/dL 14, 18 Laboratory test finding 06/02/2014 PSA Diagnostic 3.404 ng/mL 0-4.000 14 , 19 Laboratory test finding 06/10/2013 PSA Diagnostic 4.246 ng/mL High 0- 4.000 20 Lipid Profile 10/15/2012 Triglycerides 59 mg/dL 40-200 (Trig/Chol/HDL) Cholesterol 202 mg/dL High Less than 200 HDL Cholesterol 62 mg/dL High 40-60 21 Cholesterol/HDL Ratio 3.3 Average 1-4.44 LDL Cholesterol 128.2 High Less Than 100 22 Laboratory test finding 10/15/2012 PSA Screening 4.5 ng/mL High 0-4.0 23 Basic Metabolic Panel 10/15/2012 Sodium 138 mmol/L 133-145 Potassium 4.4 mmol/L 3.5-5.0 Chloride 105 mmol/L 101-111 Co2 Carbon Dioxide 27.0 mmol/L 22-32 Anion Gap 6.0 mmol/L 2-11 Glucose 83 mg/dL 70-100 Blood Urea Nitrogen 20 mg/dL 6-24 Creatinine 1.00 mg/dL 0.50-1.40 BUN/Creatinine Ratio 20.0 8-20 Calcium 9.0 mg/dL 8.1-9.9 Egfr Non- 72.1 >60 Egfr 92.7 >60 24 Lipid Profile (Trig/Chol/HDL) 05/18/2011 Triglyceride 69 mg/dL 40-200 Cholesterol 200 mg/dL Less Than 200 25 High Density Lipoprotein 68 mg/dL High 40-60 26 Cholesterol/HDL Ratio 2.94 AVERAGE 1-4.97 Low Density Lipoprotein 118 mg/dL High Less Than 100 27 Comp Metabolic Panel 05/18/2011 Sodium 140 mmol/L 135-145 Potassium 4.2 mmol/L 3.5-5.0 Chloride 107 mmol/L 101-111 Co2 (Carbon Dioxide) 27.0 mmol/L 22-32 Anion Gap 6.0 mmol/L 2-11 28 Glucose 77 mg/dL 70-100 BUN 20 mg/dL 6-24 Creatinine 0.9 mg/dL 0.50-1.40 One Over Creatinine 1.11 BUN/Creatinine Ratio 22.2 High 8-20 Calcium 9.0 mg/dL 8.1-9.9 Total Protein 6.4 GM/DL 6.2-8.1 Albumin 4.3 GM/DL 3.2-5.2 Globulin 2.1 GM/DL 2-4 Albumin/Globulin Ratio 2.0 1-3 Bilirubin Total 1.3 mg/dL 0.4-1.5 29 Alkaline Phosphatase 46 U/L 39-117 Alt (SGPT) 22 U/L 17-63 Ast (Sgot) 23 U/L 12-42 eGFR Non- 81.8 > 60 eGFR 105.2 > 60 30 Laboratory test finding 05/18/2011 PSA,Diagnostic 3.67 NG/ML 0-4 31 Manual Differential 04/14/2010 Polysegmented Neutrophil 35 % Low 38-83 Band Neutrophil 1 % 0-8 Lymphocyte 51 % High 25-47 Monocyte 6 % 0-13 Eosinophil 6 % 0-6 Basophil 1 % 0-2 Absolute Neutrophil Count 1.2 Anisocytosis SLIGHT Macrocytosis 1+ RBC Morphology (SEE NOTE) 32 Laboratory test finding 04/14/2010 PSA Screening 2.80 NG/ML 0-4 33 CBC With Electronic Diff 04/14/2010 White Blood [...] 150-450 Mean Platelet Volume 9.6 um3 7.4-10.4 34 Lipid Profile (Trig/Chol/HDL) 04/14/2010 Triglyceride 56 mg/dL 40-200 Cholesterol 166 mg/dL Less Than 200 35 High Density Lipoprotein 55 mg/dL 40-60 36 Cholesterol/HDL Ratio 3.02 AVERAGE 1-4.97 Low Density Lipoprotein 100 mg/dL Less Than 100 37 Comp Metabolic Panel 04/14/2010 Sodium 134 mmol/L Low 135-145 Potassium 3.9 mmol/L 3.5-5.0 Chloride 103 mmol/L 101-111 Co2 (Carbon Dioxide) 30.0 mmol/L 22-32 Anion Gap 1.0 mmol/L Low 2-11 38 Glucose 87 mg/dL 70-100 BUN 18 mg/dL 6-24 Creatinine 0.80 mg/dL 0.50-1.40 One Over Creatinine 1.20 BUN/Creatinine Ratio 22.5 High 8-20 Calcium 8.0 mg/dL Low 8.1-9.9 Total Protein 6.1 GM/DL Low 6.2-8.1 Albumin 3.9 GM/DL 3.2-5.2 Globulin 2.2 GM/DL 2-4 Albumin/Globulin Ratio 1.8 1-3 Bilirubin Total 0.9 mg/dL 0.4-1.5 39 Alkaline Phosphatase 41 U/L 39-117 Alt (SGPT) 33 U/L 17-63 Ast (Sgot) 31 U/L 12-42 eGFR Non- 94.0 > 60 eGFR 120.9 > [address] Estes's Lab Panel 04/14/2010 TSH 3.27 MIU/ML 0.34-5.60 Laboratory test finding 04/13/2009 Alt (SGPT) 26 U/L 17-63 Lipid Profile (Trig/Chol/HDL) 04/13/2009 Triglyceride 41 mg/dL 40-200 Cholesterol 143 mg/dL Less Than 200 41 High Density Lipoprotein 52 mg/dL 40-60 42 Cholesterol/HDL Ratio 2.75 AVERAGE 1-4.97 Low Density Lipoprotein 83 mg/dL Less Than 100 43 Protime 01/18/2009 Inr 2.46 High 0.97-1.03 44 Protime 27.6 SEC High 11.5-12.2 45 Protime 11/27/2008 Inr 1.98 High 0.86-1.13 46 Protime 22.2 SEC High 10.7-13.6 47 Protime 11/05/2008 Inr 2.12 High 0.86-1.13 48 Protime 23.6 SEC High 10.7-13.6 49 CS-1 09/06/2008 Clindamycin <=0.25 50 Ciprofloxacin <=0.5 50 Erythromycin <=0.25 50 Gentamicin <=0.5 50 Levofloxacin <=0.12 50 Linezolid 2 50 Oxacillin 1 50 Rifampin <=0.5 50 Trimeth-Sulfa <=10 50 Tetracycline <=1 50 Tigecycline <=0.12 50 Vancomycin <=0.5 50 Laboratory test 09/06/2008 Culture STAPHYLOCOCCUS A <SEE 50, 51 finding Sensitivity NOTE> CBC With 09/06/2008 White Blood Count 5.3 CUMM 4.8-10. Electronic Diff 8 Stat Red Cell Count 3.66 CUMM Low 4.6-6.2 [...] Eosinophils 0.1 0-0.6 Abs Basophils 0 0-0.2 Basic Metabolic Panel Stat 09/06/2008 Sodium 139 [...] > 60 eGFR 121.2 > 60 55 Laboratory test finding 04/23/2008 TSH 2.55 MIU/ML 0.34-5.60 PSA,Diagnostic 3.74 NG/ML 0-4 56 Lipid Profile (Trig/Chol/HDL) 04/23/2008 Triglyceride 69 mg/dL 40-200 Cholesterol 208 mg/dL High Less Than 200 57 High Density Lipoprotein 70 mg/dL High 40-60 58 Cholesterol/HDL Ratio 2.97 AVERAGE 1-4.97 Low Density Lipoprotein 124 mg/dL High Less Than 100 59 Comp Metabolic Panel 04/23/2008 Sodium 138 mmol/L 135-145 Potassium 4.7 mmol/L 3.5-5.0 Chloride 106 mmol/L 101-111 Co2 (Carbon Dioxide) 29.0 mmol/L 22-32 Anion Gap 3.0 mmol/L 2-11 60 Glucose 87 mg/dL 70-100 61 BUN 16 mg/dL 6-24 Creatinine 0.90 mg/dL 0.50-1.40 One Over Creatinine 1.10 BUN/Creatinine Ratio 17.8 8-20 Calcium 8.9 mg/dL 8.1-9.9 62 Total Protein 6.0 GM/DL Low 6.2-8.1 Albumin [...] Basophils 0 0-0.2 Surgical Pathology 04/30/2007 Surgical Pathology <SEE 63 NOTE> Laboratory test 03/26/2007 PSA Screening 4.11 NG/ML High 0-4 64 finding TSH 2.28 MIU/ML 0.34-5.60 Lipid Profile 03/26/2007 Cholesterol/HDL Ratio 3.60 AVERAGE 1-4.97 (Trig/Chol/HDL) Cholesterol 198 mg/dL Less Than 200 65 Triglyceride 69 mg/dL 40-200 High Density Lipoprotein 55 mg/dL 40-60 Low Density Lipoprotein 129 mg/dL High Less Than 100 66 Comp Metabolic Panel 03/26/2007 One Over Creatinine 0.90 Anion Gap 7.0 mmol/L 2-11 67 Albumin/Globulin Ratio 2.0 1-3 Albumin 4.0 GM/DL [...] Ratio 18.2 8-20 Creatinine 1.1 mg/dL 0.5-1.4 CBC With Manual Diff 03/26/2007 White Blood Count 4.4 CUMM Low 4.8-10.8 Absolute Neutrophil Count 2.2 Atypical Lymph 1 [...] 4.6-6.2 Redcell Distribution WDTH 14 % 10.5-15 1 Desirable: <150 Borderline High: 150-199 High: 200-499 Very High: >500 2 Desirable: <200 Borderline High: 200-239 High: >239 3 Low: <40 Desirable: 40-60 High: >60 4 Desirable: <100 Near Optimal: 100-129 Borderline High: 130-159 High: 160-189 Very High: >189 5 FASTING 6 Serum levels of PSA measured using the El[employer] Jay[employer] DXI Hybritech immunoassay should not be interpreted as absolute evidence of the presence or absence of disease. The PSA value should be used in conjunction with other pertinent clinical diagnostic procedures. The values obtained with different assay methods or kits cannot be used interchangeably. 7 Desirable <150 Borderline high 150-199 High 200-499 Very High >500 8 Desirable <200 Borderline high 200-239 High >239 9 Low <40 Desirable: 40-60 High: >60 10 Desirable: <100 mg/dL Near Optimal: 100-129 mg/dL Borderline High: 130-159 mg/dL High: 160-189 mg/dL Very High: >189 mg/dL 11 Serum levels of PSA measured using the Sush.io DXI Hybritech immunoassay should not be interpreted as absolute evidence of the presence or absence of disease. The PSA value should be used in conjunction with other pertinent clinical diagnostic procedures. The values obtained with different assay methods or kits cannot be used interchangeably. 12 Because ethnic data is not always readily [...] 15-29 5 Kidney failure <15 (or dialysis) 13 Serum levels of PSA measured using the Sush.io DXI Hybritech immunoassay should not be interpreted as absolute evidence of the presence or absence of disease. The PSA value should be used in conjunction with other pertinent clinical diagnostic procedures. The values obtained with different assay methods or kits cannot be used interchangeably. 14 FASTING 10 HOUR 15 Desirable <150 Borderline high 150-199 High 200-499 Very High >500 16 Desirable <200 Borderline high 200-239 High >239 17 Low <40 Desirable: 40-60 High: >60 18 Desirable: <100 mg/dL Near Optimal: 100-129 mg/dL Borderline High: 130-159 mg/dL High: 160-189 mg/dL Very High: >189 mg/dL 19 Serum levels of PSA measured using the Sush.io DXI Hybritech immunoassay should not be interpreted as absolute evidence of the presence or absence of disease. The PSA value should be used in conjunction with other pertinent clinical diagnostic procedures. The values obtained with different assay methods or kits cannot be used interchangeably. 20 Serum levels of PSA measured using the Sush.io DXI Hybritech immunoassay should not be interpreted as absolute evidence of the presence or absence of disease. The PSA value should be used in conjunction with other pertinent clinical diagnostic procedures. The values obtained with different assay methods or kits cannot be used interchangeably. 21 HDL Interpretation: Undesirable: High Risk: Less than 40 mg/dL Desirable: Low Risk: Greater than 60 mg/dL 22 LDL Interpretation: Low Risk Optimal Level: LDL Less than 100 mg/dL Near or Above Optimal: LDL 100-129 mg/dL Borderline High Risk: LDL 130-159 mg/dL High Risk: LDL 160-189 mg/dL Very High Risk: LDL Greater than 189 mg/dL 23 Serum levels of PSA measured using the Sush.io DXI Hybritech immunoassay should not be interpreted as absolute evidence of the presence or absence of disease. The PSA value should be used in conjunction with other pertinent clinical diagnostic procedures. The values obtained with different assay methods or kits cannot be used interchangeably. 24 Because ethnic data is not always readily [...] 15-29 5 Kidney failure <15 (or dialysis) 25 CHOLESTEROL INTERPRETATION: Desirable: Less than 200 MG/DL Borderline-High Risk: 200-239 MG/DL High-Risk: 240 MG/DL and over 26 HDL INTERPRETATION: Undesirable: High Risk: Less than 40 MG/DL Desirable: Low Risk: Greater than 60 MG/DL 27 LDL INTERPRETATION: Low Risk Optimal Level: LDL Less than 100 MG/DL Near or Above Optimal: LDL 100-129 MG/DL Borderline High Risk: LDL 130-159 MG/DL High Risk: LDL 160-189 MG/DL Very High Risk: LDL Greater than 189 MG/DL 28 Anion gap measurement may be of limited value in the presence of any alkalosis, especially in a combined acid base disorder. . 29 A metabolite of Naproxen, O-desmethylnaproxen, has been shown to interfere with the [place] method for measuring total bilirubin. Samples from patients who have taken Naproxen have shown spurious elevation in total bilirubin levels. 30 Because ethnic data is not always readily [...] 15-29 5 Kidney failure <15 (or dialysis) 31 * SERUM LEVELS OF PSA MEASURED USING THE [employer] ACCESS HYBRITECH IMMUNOASSAY SHOULD NOT BE INTERPRETED ABSOLUTE EVIDENCE OF THE PRESENCE OR ABSENCE OF DISEASE. THE PSA VALUE SHOULD BE USED IN CONJUNCTION WITH OTHER PERTINENT CLINICAL DIAGNOSTIC PROCEDURES. The values obtained with different assay methods or kits cannot be used interchangeably. 32 REVIEWED BY DEMAR ODONNELL MD 33 * SERUM LEVELS OF PSA MEASURED USING THE [employer] ACCESS HYBRITECH IMMUNOASSAY SHOULD NOT BE INTERPRETED ABSOLUTE EVIDENCE OF THE PRESENCE OR ABSENCE OF DISEASE. THE PSA VALUE SHOULD BE USED IN CONJUNCTION WITH OTHER PERTINENT CLINICAL DIAGNOSTIC PROCEDURES. 34 Neutropenia % Lymphocytosis % 35 CHOLESTEROL INTERPRETATION: Desirable: Less than 200 MG/DL Borderline-High Risk: 200-239 MG/DL High-Risk: 240 MG/DL and over 36 HDL INTERPRETATION: Undesirable: High Risk: Less than 40 MG/DL Desirable: Low Risk: Greater than 60 MG/DL 37 LDL INTERPRETATION: Low Risk Optimal Level: LDL Less than 100 MG/DL Near or Above Optimal: LDL 100-129 MG/DL Borderline High Risk: LDL 130-159 MG/DL High Risk: LDL 160-189 MG/DL Very High Risk: LDL Greater than 189 MG/DL 38 Anion gap measurement may be of limited value in the presence of any alkalosis, especially in a combined acid base disorder. . 39 A metabolite of Naproxen, O-desmethylnaproxen, has been shown to interfere with the [place] method for measuring total bilirubin. Samples from patients who have taken Naproxen have shown spurious elevation in total bilirubin levels. 40 Because ethnic data is not always readily [...] 15-29 5 Kidney failure <15 (or dialysis) 41 CHOLESTEROL INTERPRETATION: Desirable: Less than 200 MG/DL Borderline-High Risk: 200-239 MG/DL High-Risk: 240 MG/DL and over 42 HDL INTERPRETATION: Undesirable: High Risk: Less than 40 MG/DL Desirable: Low Risk: Greater than 60 MG/DL 43 LDL INTERPRETATION: Low Risk Optimal Level: LDL Less than 100 MG/DL Near or Above Optimal: LDL 100-129 MG/DL Borderline High Risk: LDL 130-159 MG/DL High Risk: LDL 160-189 MG/DL Very High Risk: LDL Greater than 189 MG/DL 44 Recommended INR for Patients on Oral Anticoagulants Prophylaxis 2.0 - 3.0 Treatment of thrombosis 2.0 - 3.0 Prevention of embolism 2.0 - 3.0 Prevention of embolism from prosthetic heart valves 2.5 - 3.5 45 DIAGNOSIS,TREATMENT,AND THERAPY MUST BE BASED ON THE INR VALUE ALONE. 46 Recommended INR for Patients on Oral Anticoagulants Prophylaxis 2.0 - 3.0 Treatment of thrombosis 2.0 - 3.0 Prevention of embolism 2.0 - 3.0 Prevention of embolism from prosthetic heart valves 2.5 - 3.5 47 ATTENTION EFFECTIVE 07/15/08, THE IMPLEMENTATION OF NEW COAGULATION ANLAYZERS HAS CAUSED A SIGNIFICANT DIFFERENCE FOR PROTIME RESULTS IN SECONDS. THEREFORE, DIAGNOSIS,TREATMENT,AND THERAPY MUST BE BASED ON THE INR VALUE ONLY. 48 Recommended INR for Patients on Oral [...] BASED ON THE INR VALUE ONLY. 50 SOURCE LOCATION: CHEST 51 STAPHYLOCOCCUS AUREUS 52 Anion gap measurement may be of limited value in the presence of any alkalosis, especially in a combined acid base disorder. . 53 Note change in reference range as of 10/24/07. The change was based on recommendations from the [place] [employer]. 54 Please note change in [...] 5 Kidney failure <15 (or dialysis) 56 * SERUM LEVELS OF PSA MEASURED USING THE [employer]Mobile ACCESS HYBRITECH IMMUNOASSAY SHOULD NOT BE INTERPRETED ABSOLUTE EVIDENCE OF THE PRESENCE OR ABSENCE OF DISEASE. THE PSA VALUE SHOULD BE USED IN CONJUNCTION WITH OTHER PERTINENT CLINICAL DIAGNOSTIC PROCEDURES. 57 CHOLESTEROL INTERPRETATION: Desirable: Less than 200 MG/DL Borderline-High Risk: 200-239 MG/DL High-Risk: 240 MG/DL and over 58 HDL INTERPRETATION: Undesirable: High Risk: Less than 40 MG/DL Desirable: Low Risk: Greater than 60 MG/DL 59 LDL INTERPRETATION: Low Risk Optimal Level: LDL Less than 100 MG/DL Near or Above Optimal: LDL 100-129 MG/DL Borderline High Risk: LDL 130-159 MG/DL High Risk: LDL 160-189 MG/DL Very High Risk: LDL Greater than 189 MG/DL 60 Anion gap measurement may be of limited value in the presence of any alkalosis, especially in a combined acid base disorder. . 61 Note change in reference range as of 10/24/07. The change was based on recommendations from the [place] [employer]. 62 Please note change in reference range effective 07 . 63 ---- RUN DATE: 05/02/07 [facility] LIVE PAGE 1 RUN TIME: 1552 Specimen Inquiry RUN USER: INTERFACE [id number] NAVEEN HICKEY 71/Zack <REG REF 04/30> ([id number]) NIKI Henriquez MDS davey -- Specimen: [id number] SOUT Spec Date: 04/30/[address]: Jose D Younger i, MD Spec Type: SURGICAL P Received: 05/01/07-635 Copies to: Shad Estes III, MD SPECIMEN 1) LEFT LOBE PROSTATE BIOPSY APEX (APEX 3) 2) LEFT LOBE PROSTATE BIOPSY BASE (BASE 3) 3) RIGHT LOBE PROSTATE BIOPSY APEX (APEX 3) 4) RIGHT LOBE PROSTATE BIOPSY BASE (BASE 4) HISTORY PRE-OP DIAGNOSIS: Grade III right lobe, diffuse firmness, PSA 4.11 GROSS DESCRIPTION 1) The specimen is received in formalin labelled Wilfried [facility], Left Prostate Lobe [place], and consists of three, garcía, soft tissue cores measuring 1.7 cm., 1.8 cm., and 1.6 x 0.1 cm. Submitted entirely, one cassette. 2) The specimen is received in formalin [facility], Left Prostate Lobe [place], and consists of three, garcía, soft tissue cores measuring 1.9 cm., 1.7 cm., and 1.5 x 0.1 cm. Submitted entirely, one cassette. 3) The [facility] is [facility], Right Prostate Lobe [place], and consists of three, garcía, soft tissue cores measuring 2.0 cm., 1.8 cm., and 1.5 x 0.1 cm. Submitted entirely, one cassette. 4) The specimen is received in formalin labelled [facility], Right Prostate Lobe [place], and consists of [...] apex, core biopsies: -- DEPARTMENT OF PATHOLOGY, [address] [place] [address] [facility] Permit #[id number] Pal Garcia M.D. Director of [place] -- -- RUN DATE: 05/02/07 [facility] NMI LIVE PAGE 2 RUN TIME: 1552 Specimen Inquiry RUN USER: INTERFACE -- SPEC #: [id number] PATIENT: NAVEEN HICKEY #[id number] (Continued) -- DIAGNOSIS (Continued) A) Benign prostate tissue. B) No evidence of neoplasia. 4) Prostate, right base, core biopsies: A) Benign prostate tissue. B) No evidence of neoplasia. Signed Electronically by: PAL GARCIA MD 05/02/07 1552 -- -- DEPARTMENT OF PATHOLOGY, [address] [place] [address] [facility] Permit #[id number] Pal Garcia M.D. Director of Laboratories -- 64 * SERUM LEVELS OF PSA MEASURED USING THE [employer]KIN JAYLEN ACCESS HYBRITECH IMMUNOASSAY SHOULD NOT BE INTERPRETED ABSOLUTE EVIDENCE OF THE PRESENCE OR ABSENCE OF DISEASE. THE PSA VALUE SHOULD BE USED IN CONJUNCTION WITH OTHER PERTINENT CLINICAL DIAGNOSTIC PROCEDURES. 65 Classification: Desirable . 66 CALCULATED LDL APPROXIMATES THE VALUE OF A DIRECT LDL MEASUREMENT. Classification: Near or above optimal . 67 Anion gap measurement may be of limited value in the presence of any alkalosis, especially in a combined acid base disorder. . Procedures Date CPT Code Description Status 09/14/2017 50718 Inject/Drain Joint/Bursa Major W/O US Completed 06/20/2017 85589 EKG Tracing & Interpretation Completed 06/30/2016 64443 EKG Tracing & Interpretation Completed 04/07/2016 22114 Inject/Drain Joint/Bursa Small W/O US Completed 07/08/2015 35575 EKG Tracing & Interpretation Completed 03/13/2014 10668 EKG Tracing & Interpretation Completed 11/01/2012 64525 EKG Tracing & Interpretation Completed 10/01/2012 03661 ECHO Transthoracic, Real-Time 2D With Doppler And Color Completed Flow 08/02/2010 Colonoscopy Completed 10/05/2008 66396 Holter Monitor Interpretation Completed 08/24/2008 77571 EKG Tracing & Interpretation Completed 08/13/2008 65630 EKG Tracing & Interpretation Completed 06/05/2008 48587 EKG Tracing & Interpretation Completed 06/01/2008 25441 Color Doppler Completed 06/01/2008 97496 Pulse Doppler & Continuous Wave Completed 06/01/2008 22603 Echocardiogram Completed 06/01/2008 20794 ECHO Transthoracic, Real-Time 2D With Doppler And Color Completed Flow 04/29/2008 40983 EKG Tracing & Interpretation Completed 12/08/2005 30888 Color Doppler Completed 12/08/2005 15782 Color Doppler Completed 12/08/2005 33602 Pulse Doppler & Continuous Wave Completed 12/08/2005 40797 Echocardiogram Completed 12/08/2005 56694 Echocardiogram Completed Encounters Type Date Location Provider CPT E/M Dx Office Visit 09/25/2017 9:40a [facility] [place] [address] Z01.818 [place] M17.11 I34.9 Office Visit 06/20/2017 3:30p [facility] Carito Shaihd, 29690 I34.9 [place] I48.0 Office Visit 06/30/2016 3:30p [facility] Carito Shahid 91495 I34.9 [place] I48.0 Office Visit 04/07/2016 11:00a [facility] [place] [address] M18.12 C.M.A. S63.115A Office Visit 07/22/2015 10:00a [facility] Shad Estes, 45740 N40.1 - [place] R36.9 Office Visit 07/08/2015 9:00a [facility] Carito Shahid 33460 I34.0 [employer] M.D. Office Visit 06/19/2014 1:00p [facility] [address] V72.83 - [facility].Brodie 365.9 424.0 272.0 600.20 Office Visit 03/13/2014 8:15a [facility] MikeDany Shahid, 62751 424.0 [employer] M.D. Office Visit 11/01/2012 2:30p [facility] MikeDany Shahid, 82458 424.0 [facility] M.DDany 427.31 Office Visit 05/25/2011 2:40p [facility] [address] V70.0 [facility].Brodie 272.0 424.0 V06.5 Office Visit 05/18/2010 2:00p DO Not Use [employer] AT [facility], [address] V70.0 [facility].DDany 272.0 424.0 602.9 Office Visit 08/13/2008 8:20a [facility] S. sebastian, [address] 424.0 M.D. 272.2 425.9 427.31 Office Visit 06/05/2008 11:00a [facility] [place], [address] 785.2 M.D. 424.0 786.05 Office Visit 04/29/2008 1:30p [facility], [address] 785.2 [facility] M.D. V70.0 Office Visit 06/06/2007 2:15p [facility], 23634 389.9 [facility] M.D. Office Visit 03/21/2007 9:30a [facility], 06918 602.9 [facility] M.D. Plan of Care Future Appointment(s):10/24/2017 9:45 am - Karyn Alvarez M.D. at [facility]10/11/2017 3:30 pm - Shady Fontana PA-C at [facility]10/11/2017 3:30 pm - Julia B Reyes, PA at [facility]10/11/2017 3:30 pm - Karyn Alvarez M.D. at [facility]02/18/2018 9:20 am - Shad Estes M.D. at [facility] - Wbhmggkxv17/01/2018 - Karyn Alvarez M.D.M17.11 Unilateral primary osteoarthritis, right kneeFollow up:Follow up: 2 weeks after rghflekL80.461 Effusion, right kneeM25.561 Pain in right knee
--- OUTSIDE RECORDS SUMMARY | 2017-10-11 12:38 | XMS REPORT ---
:1935 External Reference #:[id number] Author Organization [facility] Address [address] [place] [address] Phone [phone] Care Team Providers Name Role Phone Shad Estes III, MD Primary Care Physician Unavailable Payers Type Date Identification Numbers Payment Provider Subscriber Medicare Primary Expires: Policy Number: Medicare Naveen 2016 [id number] Ruperto PayID: [id number] [address] [place] [address] Commercial Effective: 2010 Policy Number: Aetna-CP Naveen Hickey [id number] Expires: 2016 Group Number: [id number] [address] PayID: [id number] [place] [address] Medigap Part B Expires: 2010 Policy Number: Aetna Insurance Naveen Edgar [id number] Ruperto Group Number: [id number] [address] PayID: [id number] [place] [address] Medigap Part B Effective: Policy Number: Aetna Medicare Wilfried H 2016 [id number] Luannradhaallie Group Number: [id number] [address] [place]ID: [id number] [place] [id number] Problems Date Description Provider Status Onset: 05/25/2011 Pure hypercholesterolemia Shad Estes M.D. Active Onset: 05/25/2011 Mitral valve disorder Shad Estes M.D. Active Onset: 10/24/2012 Disorder of prostate Shad Estes M.D. Active Onset: 02/11/2015 Mitral leaflet abnormality Shad Estes M.D. Active Onset: 04/07/2016 Localized, primary osteoarthritis of Delgado Guerrier MD Active the hand Onset: 09/14/2017 Localized, primary osteoarthritis Karyn Alvraez M.D. Active Family History Date Family Member(s) [...] 90tab as directed Qutaybeh s [facility], 12/21 M.D. Lisinopril 08/24 Hx Tablets 5mg 90tab 1 po qd Qutaybeh s [facility], 05/18 M.D. /2010 Coumadin 08/13 Hx Tablets 2.5mg 90tab use as Qutayb s directed [facility], 08/25 M.D. /2008 Asa 08/13 Hx 81mg 90uni 1 po qd Qutaybeh ts [facility], 02/11 M.D. /2014 Simvastatin 08/13 Hx Tablets 20mg 90tab 1 po qhs Qutaybeh [facility], 05/18 M.D. /2010 Enalapril 08/13 Hx Tablets 2.5mg 30tab 1 po qd Qutaybeh Male [facility], 08/24 M.D. Glucosamine/Ch 07/14 Hx Tablets [...] Masha, / Cha Huang MD 02/11 Apraclonidine 00/ Hx Solution 0.5% Peewee HCL /0000 , [...] CPT Code Status Date Vaccine Lot # 12039 Given 02/11/2015 Pneumococcal Conjugate Vaccine 13 Valent For [id number] Intramuscular Use 20801 Given 05/25/2011 Tetanus And Diptheria (Td) For Adult Use [id number] Preservative Free 12603 Given 11/16/1998 Pneumovax (History By Patient) 138iu Vital Signs Date Vital Result Comment 09/25/2017 Height 68 inches 5'8" Weight 138.25 [...] Color Yellow Urine Appearance Clear Urine Specific [place] 1.017 1.010-1.030 Urine pH 6.0 5-9 Urine [...] levels of PSA measured using the Elkin Mcclellan DXI Hybritech immunoassay should not be interpreted [...] levels of PSA measured using the Elkin Mcclellan DXI Hybritech immunoassay should not be interpreted [...] levels of PSA measured using the Elkin Mcclellan DXI Hybritech immunoassay should not be interpreted [...] levels of PSA measured using the Elkin Mcclellan DXI Hybritech immunoassay should not be interpreted [...] Serum levels of PSA measured using the [employer] DXI Hybritech immunoassay should not be interpreted [...] SERUM LEVELS OF PSA MEASURED USING THE [employer] ACCESS HYBRITECH IMMUNOASSAY SHOULD NOT BE INTERPRETED ABSOLUTE EVIDENCE OF THE PRESENCE OR ABSENCE OF DISEASE. THE PSA VALUE SHOULD BE USED IN CONJUNCTION WITH OTHER PERTINENT CLINICAL DIAGNOSTIC PROCEDURES. The values obtained with different assay methods or kits cannot be used interchangeably. 32 REVIEWED BY DEMAR ODONNELL MD 33 * SERUM LEVELS OF PSA MEASURED USING THE ELKIN [employer] ACCESS HYBRITECH IMMUNOASSAY SHOULD NOT BE INTERPRETED [...] has been shown to interfere with the Jendrassik-Interlochen method for measuring total bilirubin. Samples from [...] change was based on recommendations from the [place] [employer]. 54 Please note change in [...] LEVELS OF PSA MEASURED USING THE ELKIN [employer] ACCESS HYBRITECH IMMUNOASSAY SHOULD NOT BE INTERPRETED [...] change was based on recommendations from the [place] [employer]. 62 Please note change in reference range effective 07 . 63 ---- RUN DATE: 05/02/07 [facility] NM LIVE PAGE 1 RUN TIME: 1552 Specimen Inquiry RUN USER: INTERFACE [id number] NAVEEN HICKEY/Zack <REG REF 04/30> ([id number]) NIKI Henriquez MD ,S ami -- Specimen: [id number] SOUT Spec Date: 04/30/[address]: Jose D Younger i, MD Spec Type: SURGICAL P Received: 05/01/07 Copies to: Shad Estes III, MD SPECIMEN 1) LEFT LOBE PROSTATE BIOPSY APEX (APEX 3) 2) LEFT LOBE PROSTATE BIOPSY BASE (BASE 3) 3) RIGHT LOBE PROSTATE BIOPSY APEX (APEX 3) 4) RIGHT LOBE PROSTATE BIOPSY BASE (BASE 4) HISTORY PRE-OP DIAGNOSIS: Grade III right lobe, diffuse firmness, PSA 4.11 GROSS DESCRIPTION 1) The specimen is received in formalin labelled Wilfried Bruaert, Left Prostate Lobe [place], and consists of three, garcía, soft tissue cores measuring 1.7 cm., 1.8 cm., and 1.6 x 0.1 cm. Submitted entirely, one cassette. 2) The specimen is received in formalin labelled Wilfried [email or web address], Left Prostate Lobe [place], and consists of three, garcía, soft tissue cores measuring 1.9 cm., 1.7 cm., and 1.5 x 0.1 cm. Submitted entirely, one cassette. 3) The specimen is received in formalin labelled Wilfried [email or web address]]aert, Right Prostate Lobe [place], and consists of three, garcía, soft tissue cores measuring 2.0 cm., 1.8 cm., and 1.5 x 0.1 cm. Submitted entirely, one cassette. 4) The specimen is received in formalin labelled Wilfried Bruaert, Right Prostate Lobe Base, and consists of [...] apex, core biopsies: -- DEPARTMENT OF PATHOLOGY, [address] [place] [address] [facility] Permit #[id number] Pal Garcia M.D. Director of Laboratories -- -- RUN DATE: 05/02/07 [facility] NMI LIVE PAGE 2 RUN TIME: 155 Specimen Inquiry RUN USER: INTERFACE -- SPEC #: [id number] PATIENT: NAVEEN HICKEY #[id number] (Continued) -- DIAGNOSIS (Continued) A) Benign prostate tissue. B) No evidence of neoplasia. 4) Prostate, right base, core biopsies: A) Benign prostate tissue. B) No evidence of neoplasia. Signed Electronically by: PAL AGRCIA MD 05/02/07 1552 -- -- DEPARTMENT OF PATHOLOGY, [address] [place] [address] [facility] Permit #[id number] Pal Garcia M.D. Director of Laboratories [...] Procedures Date CPT Code Description Status 09/14/2017 Inject/Drain Joint/Bursa Major W/O US Completed 06/20/2017 25554 EKG Tracing & Interpretation Completed 06/30/2016 98517 EKG Tracing & Interpretation Completed 04/07/2016 Inject/Drain Joint/Bursa Small W/O US Completed 07/08/2015 73195 EKG Tracing & Interpretation Completed 03/13/2014 63654 EKG Tracing & Interpretation Completed 11/01/2012 72175 EKG Tracing & Interpretation Completed 10/01/2012 95129 ECHO Transthoracic, Real-Time 2D With Doppler And Color Completed Flow 08/02/2010 Colonoscopy Completed 10/05/2008 25317 Holter Monitor Interpretation Completed 08/24/2008 01628 EKG Tracing & Interpretation Completed 08/13/2008 00838 EKG Tracing & Interpretation Completed 06/05/2008 41639 EKG Tracing & Interpretation Completed 06/01/2008 69452 Color Doppler Completed 06/01/2008 28694 Pulse Doppler & Continuous Wave Completed 06/01/2008 93693 Echocardiogram Completed 06/01/2008 42450 ECHO Transthoracic, Real-Time 2D With Doppler And Color Completed Flow 04/29/2008 63219 EKG Tracing & Interpretation Completed 12/08/2005 95592 Color Doppler Completed 12/08/2005 84515 Color Doppler Completed 12/08/2005 83347 Pulse Doppler & Continuous Wave Completed 12/08/2005 88016 Echocardiogram Completed 12/08/2005 32505 Echocardiogram Completed Encounters Type Date Location Provider CPT E/M Dx Office Visit 06/20/2017 [facility] Carito Shahid 71297 I34.9 3:30p [place] I48.0 Office Visit 06/30/2016 3:30p [facility] Carito Shahid 15873 I34.9 [place] I48.0 Office Visit 04/07/2016 11:00a [facility] [place] [address] M18.12 [facility] S63.115A Office Visit 07/22/2015 10:00a [facility] Shad Estes 34567 N40.1 [place] R36.9 Office Visit 07/08/2015 9:00a [facility] Carito Shahid 85952 I34.0 [place] Office Visit 06/19/2014 1:00p [facility] Shad Estes 86254 V72.83 - [place] 365.9 424.0 272.0 600.20 Office Visit 03/13/2014 8:15a [facility] Carito Shahid 36894 424.0 [place] Office Visit 11/01/2012 2:30p [facility] Ruddy Shahid, 21801 424.0 [facility].D. 427.31 Office Visit 05/25/2011 2:40p [facility] Shad LinkDany Estes, [address] V70.0 [facility] 424.0 V06.5 Office Visit 05/18/2010 2:00p DO Not Use [facility] [address] V70.0 [facility] 424.0 602.9 Office Visit 08/13/2008 8:20a [facility] [address] 424.0 M.D. 272.2 425.9 427.31 Office Visit 06/05/2008 11:00a [facility] S. [facility], [address] 785.2 M.D. 424.0 786.05 Office Visit 04/29/2008 1:30p [facility] Shad Estes, 127[address] 785.2 [facility].D. V70.0 Office Visit 06/06/2007 2:15p [facility], [address]12 389.9 [facility] M.D. Office Visit 03/21/2007 9:30a [facility], 03104 602.9 [facility] M.D. Plan of Care Future Appointment(s):10/11/2017 3:30 pm - Karyn Alvarez M.D. at [facility]10/03/2017 11:30 am - Karyn Alvarez M.D. at [facility]02/18/2018 9:20 am - Shad Estes M.D. at [facility] - Tpqnmmrwh90/24/2018 - Bar Avila, AMANUELZ01.818 Encounter for other preprocedural examinationComments:As long as your labs are normal I do not see any contraindications to your surgery.You should avoid aspirin, NSAIDs ( ibuprofen, Motrin, aleve) and supplements 7 days prior to the procedure.M17.11 Unilateral primary osteoarthritis, right kneeI34.9 Nonrheumatic mitral valve disorder, unspecified
--- OUTSIDE RECORDS SUMMARY | 2017-10-11 12:38 | XMS REPORT ---
:1935 External Reference #:[id number] Author Organization [employer] Address [address] [place] [address] Phone [phone] Care Team Providers Name Role Phone Shad Estes III, MD Primary Care Physician Unavailable Payers Type Date Identification Numbers Payment Provider Subscriber Medicare Primary Expires: Policy Number: Medicare Naveen 2016 [id number] Ruperto PayID: [id number] [address] [place] [address] Commercial Effective: 2010 Policy Number: Aetna-CP Naveen Hickey [id number] Expires: 2016 Group Number: [id number] [address] PayID: [id number] [place] [address] Medigap Part B Expires: 2010 Policy Number: Aetna Insurance Naveen Edgar [id number] Ruperto Group Number: [id number] [address] PayID: [id number] [place] [address] Medigap Part B Effective: Policy Number: Aetna Medicare Wilfried H 2016 [id number] Luannradhaallie Group Number: [id number] [address] PayID: [id number] [place] [id number] Problems Date Description Provider Status Onset: 05/25/2011 [...] daily 40min each way. and : cycle, M-W- rows. summer cycles to work 10-[address] M-W-F row 50min, Sun- walks 4 mi to [place] Allergies, Adverse Reactions, Alerts Date Description Reaction Status Severity Comments 03/20/2007 NKDA active Medications Medication Date Status Form Strength Qnty SIG Indications Ordering Provider Glucosamine Active Capsules 500Comp 1 capsule Unknown Chondroitin /0000 ocassionally 500 Complex Flax Seeds Active 1 tbsp daily Unknown /0000 Metoprolol 05/06 Hx Tablets 50mg 90tab 1/2 tab by Ruddy Rios s mouth every Brand, - day M.D. 10/24 Metoprolol 05/11 Hx 25mg 90uni 1 po qd Shad Weaver /2010 Cha Altman M.D. 05/06 Lopressor 02/22 Hx Tablets 50mg 45tab 1/2 po qd Qutayb s S. - Maghaydah, 05/11 M.D. Lopressor 09/14 Hx Tablets 25mg 30tab 1 po qd Qutayb s S. - Mag[place], 02/22 M.DDany Coumadin 08/25 Hx Tablets 5mg 90tab as directed tayb [facility], 12/21 M.D. Coumadin 08/25 Hx Tablets 2mg 90tab as directed Qutaybeh [facility], 12/21 M.D. Lisinopril 08/24 Hx Tablets 5mg 90tab 1 po qd Qutaybeh [facility], 05/18 M.D. /2010 Coumadin 08/13 Hx Tablets 2.5mg 90tab use as Qutayb s directed . [facility], 08/25 M.D. Asa 08/13 Hx 81mg 90uni 1 po qd Qutaybeh [facility], 02/11 M.D. /2014 Simvastatin 08/13 Hx Tablets 20mg 90tab 1 po qhs Qutayb [facility], 05/18 M.D. /2010 Enalapril 08/13 Hx Tablets 2.5mg 30tab 1 po qd Qutaybeh [facility], 08/24 M.D. Glucosamine/Ch 07/14 Hx Tablets 2 po qd Shad Weaver ondroitin/ Cha Estes M.D. 08/24 Timoptic 03/21 Hx Solution 0.25% 1 GTT OU Shad Weaver /Cha Luna M.D. 06/19 Selenium 03/21 Hx Tablets 200mcg 1 PO qd Shad Weaver /Cha Luna M.D. 08/24 Aspirin Hx Tablets 325mg 1 PO qd prn Meera /0000 Cha ESTEBAN 03/21 Xalatan Hx Solution 0.005% OU QHS 1 GGT Other /0000 Physician - Practices 06/19 Selenium Hx ocationally Unknown /0000 - 02/14 Dorzolamide Hx Solution 22.3-6.8m Unknown HCL/Timolol /0000 g/ml Maleate - 02/11 Travatan Z Hx Solution 0.004% Masha, / Cha Huang MD 02/11 Apraclonidine 00 Hx Solution 0.5% Peewee HCL /0000 Te - MD 02/11 Prednisolone Hx Suspension 1% Peewee Acetate /0000 Te - MD 07/06 Turmeric 00/ Hx 1 cap po Unknown /0000 daily - 06/29 Medications Administered in Office Medication Date Status Form Strength Qnty SIG Indications Ordering Provider Celestone 3 mg Administered Injection Delgado and 3mg 017 MD Chey Immunizations CPT Code Status Date Vaccine Lot # [id number] Given 02/11/2015 Pneumococcal Conjugate Vaccine 13 Valent For [id number] Intramuscular Use 79937 Given 05/25/2011 Tetanus And Diptheria (Td) For Adult Use [id number] Preservative Free 21208 Given 11/16/1998 Pneumovax (History By Patient) 138iu Vital Signs Date Vital Result Comment 09/14/2017 Height 68 inches 5'8" Weight 136.00 [...] Color Yellow Urine Appearance Clear Urine Specific Kimball 1.017 1.010-1.030 Urine pH 6.0 5-9 Urine [...] finding 05/18/2011 PSA,Diagnostic 3.67 NG/ML 0-4 31 Comp Metabolic Panel 04/14/2010 Sodium 134 mmol/L Low 135-145 Potassium 3.9 mmol/L 3.5-5.0 Chloride 103 mmol/L 101-111 Co2 (Carbon Dioxide) 30.0 mmol/L 22-32 Anion Gap 1.0 mmol/L Low 2-11 32 Glucose 87 mg/dL 70-100 BUN 18 mg/dL 6-24 Creatinine 0.80 mg/dL 0.50-1.40 One Over Creatinine 1.20 BUN/Creatinine Ratio 22.5 High 8-20 Calcium 8.0 mg/dL Low 8.1-9.9 Total Protein 6.1 GM/DL Low 6.2-8.1 Albumin 3.9 GM/DL 3.2-5.2 Globulin 2.2 GM/DL 2-4 Albumin/Globulin Ratio 1.8 1-3 Bilirubin Total 0.9 mg/dL 0.4-1.5 33 Alkaline Phosphatase 41 U/L 39-117 Alt (SGPT) 33 U/L 17-63 Ast (Sgot) 31 U/L 12-42 eGFR Non- 94.0 > 60 eGFR 120.9 > [address] Estes's Lab Panel 04/14/2010 TSH 3.27 MIU/ML 0.34-5.60 Manual Differential 04/14/2010 Polysegmented Neutrophil 35 % Low 38-83 Band Neutrophil 1 % 0-8 Lymphocyte 51 % High 25-47 Monocyte 6 % 0-13 Eosinophil 6 % 0-6 Basophil 1 % 0-2 Absolute Neutrophil Count 1.2 Anisocytosis SLIGHT Macrocytosis 1+ RBC Morphology (SEE NOTE) 35 Laboratory test finding 04/14/2010 PSA Screening 2.80 NG/ML 0-4 36 CBC With Electronic Diff 04/14/2010 White Blood [...] 150-450 Mean Platelet Volume 9.6 um3 7.4-10.4 37 Lipid Profile (Trig/Chol/HDL) 04/14/2010 Triglyceride 56 mg/dL 40-200 Cholesterol 166 mg/dL Less Than 200 38 High Density Lipoprotein 55 mg/dL 40-60 39 Cholesterol/HDL Ratio 3.02 AVERAGE 1-4.97 Low Density Lipoprotein 100 mg/dL Less Than 100 40 Laboratory test finding 04/13/2009 Alt (SGPT) 26 [...] 48 Protime 23.6 SEC High 10.7-13.6 49 Basic Metabolic Panel Stat 09/06/2008 Sodium 139 mmol/L 135-145 Potassium 3.8 mmol/L 3.5-5.0 Chloride 104 mmol/L 101-111 Co2 (Carbon Dioxide) 29.0 mmol/L 22-32 Anion Gap 6.0 mmol/L 2-11 50 Glucose 91 mg/dL 70-100 51 BUN 20 mg/dL 6-24 Creatinine 0.80 mg/dL 0.50-1.40 One Over Creatinine 1.20 BUN/Creatinine Ratio 25.0 High 8-20 Calcium 9.1 mg/dL 8.1-9.9 52 eGFR Non- 100.2 > 60 eGFR 121.2 > 60 53 CBC With Electronic Diff Stat 09/06/2008 White [...] Laboratory test 09/06/2008 Culture STAPHYLOCOCCUS A <SEE 54, 55 finding Sensitivity NOTE> CS-1 09/06/2008 Clindamycin <=0.25 54 Ciprofloxacin <=0.5 54 Erythromycin <=0.25 54 Gentamicin <=0.5 54 Levofloxacin <=0.12 54 Linezolid 2 54 Oxacillin 1 54 Rifampin <=0.5 54 Trimeth-Sulfa <=10 54 Tetracycline <=1 54 Tigecycline <=0.12 54 Vancomycin <=0.5 54 CBC With Electronic Diff 04/23/2008 White Blood [...] Eosinophils 0.2 0-0.6 Abs Basophils 0 0-0.2 Comp Metabolic Panel 04/23/2008 Sodium 138 mmol/L 135-145 Potassium 4.7 mmol/L 3.5-5.0 Chloride 106 mmol/L 101-111 Co2 (Carbon Dioxide) 29.0 mmol/L 22-32 Anion Gap 3.0 mmol/L 2-11 56 Glucose 87 mg/dL 70-100 57 BUN 16 mg/dL 6-24 Creatinine 0.90 mg/dL 0.50-1.40 One Over Creatinine 1.10 BUN/Creatinine Ratio 17.8 8-20 Calcium 8.9 mg/dL 8.1-9.9 58 Total Protein 6.0 GM/DL Low 6.2-8.1 Albumin 3.8 GM/DL 3.2-5.2 Globulin 2.2 GM/DL 2-4 Albumin/Globulin Ratio 1.7 1-3 Bilirubin Total 1.4 mg/dL 0.4-1.5 Alkaline Phosphatase 38 U/L Low 39-117 Alt (SGPT) 35 U/L 17-63 Ast (Sgot) 33 U/L 12-42 Lipid Profile (Trig/Chol/HDL) 04/23/2008 Triglyceride 69 mg/dL 40-200 Cholesterol 208 mg/dL High Less Than 200 59 High Density Lipoprotein 70 mg/dL High 40-60 60 Cholesterol/HDL Ratio 2.97 AVERAGE 1-4.97 Low Density Lipoprotein 124 mg/dL High Less Than 100 61 Laboratory test finding 04/23/2008 TSH 2.55 MIU/ML 0.34-5.60 PSA,Diagnostic 3.74 NG/ML 0-4 62 Surgical Pathology 04/30/2007 Surgical Pathology <SEE 63 [...] Serum levels of PSA measured using the EyeJot Jaylen DXI Hybritech immunoassay should not be [...] Serum levels of PSA measured using the ChatStat DXI Hybritech immunoassay should not be interpreted [...] Serum levels of PSA measured using the ChatStat DXI Hybritech immunoassay should not be interpreted [...] levels of PSA measured using the Elkin inDplay DXI Hybritech immunoassay should not be interpreted as absolute evidence of the presence or absence of disease. The PSA value should be used in conjunction with other pertinent clinical diagnostic procedures. The values obtained with different assay methods or kits cannot be used interchangeably. 20 Serum levels of PSA measured using the Elkin inDplay DXI Hybritech immunoassay should not be interpreted [...] levels of PSA measured using the Elkin inDplay DXI Hybritech immunoassay should not be interpreted [...] SERUM LEVELS OF PSA MEASURED USING THE Definition 6 ACCESS HYBRITECH IMMUNOASSAY SHOULD NOT BE INTERPRETED ABSOLUTE EVIDENCE OF THE PRESENCE OR ABSENCE OF DISEASE. THE PSA VALUE SHOULD BE USED IN CONJUNCTION WITH OTHER PERTINENT CLINICAL DIAGNOSTIC PROCEDURES. The values obtained with different assay methods or kits cannot be used interchangeably. 32 Anion gap measurement may be of limited value in the presence of any alkalosis, especially in a combined acid base disorder. . 33 A metabolite of Naproxen, O-desmethylnaproxen, has been shown to interfere with the Jendrassik-Noris method for measuring total bilirubin. Samples from patients who have taken Naproxen have shown spurious elevation in total bilirubin levels. 34 Because ethnic data is not always readily [...] 15-29 5 Kidney failure <15 (or dialysis) 35 REVIEWED BY DEMAR ODONNELL MD 36 * SERUM LEVELS OF PSA MEASURED USING THE ELKIN JAYLEN ACCESS HYBRITECH IMMUNOASSAY SHOULD NOT BE INTERPRETED ABSOLUTE EVIDENCE OF THE PRESENCE OR ABSENCE OF DISEASE. THE PSA VALUE SHOULD BE USED IN CONJUNCTION WITH OTHER PERTINENT CLINICAL DIAGNOSTIC PROCEDURES. 37 Neutropenia % Lymphocytosis % 38 CHOLESTEROL INTERPRETATION: Desirable: Less than 200 MG/DL Borderline-High Risk: 200-239 MG/DL High-Risk: 240 MG/DL and over 39 HDL INTERPRETATION: Undesirable: High Risk: Less than 40 MG/DL Desirable: Low Risk: Greater than 60 MG/DL 40 LDL INTERPRETATION: Low Risk Optimal Level: LDL Less than 100 MG/DL Near or Above Optimal: LDL 100-129 MG/DL Borderline High Risk: LDL 130-159 MG/DL High Risk: LDL 160-189 MG/DL Very High Risk: LDL Greater than 189 MG/DL 41 CHOLESTEROL INTERPRETATION: Desirable: Less than 200 [...] BASED ON THE INR VALUE ONLY. 50 Anion gap measurement may be of limited value in the presence of any alkalosis, especially in a combined acid base disorder. . 51 Note change in reference range as of 10/24/07. The change was based on recommendations from the [place] [employer]. 52 Please note change in reference range effective 07 . 53 Because ethnic data is not always readily [...] 15-29 5 Kidney failure <15 (or dialysis) 54 SOURCE LOCATION: CHEST 55 STAPHYLOCOCCUS AUREUS 56 Anion gap measurement may be of limited value in the presence of any alkalosis, especially in a combined acid base disorder. . 57 Note change in reference range as of 10/24/07. The change was based on recommendations from the [place] [employer]. 58 Please note change in reference range effective 07 . 59 CHOLESTEROL INTERPRETATION: Desirable: Less than 200 [...] Risk: LDL Greater than 189 MG/DL 62 * SERUM LEVELS OF PSA MEASURED USING THE ELKIN JAYLEN ACCESS HYBRITECH IMMUNOASSAY SHOULD NOT BE INTERPRETED ABSOLUTE EVIDENCE OF THE PRESENCE OR ABSENCE OF DISEASE. THE PSA VALUE SHOULD BE USED IN CONJUNCTION WITH OTHER PERTINENT CLINICAL DIAGNOSTIC PROCEDURES. 63 ---- RUN DATE: 05/02/07 [facility] LIVE PAGE 1 RUN TIME: 1552 Specimen Inquiry RUN USER: INTERFACE [id number] NAVEEN HICKEY 71/M <REG REF 04/30> ([id number]) Rosa De Dios MD -- Specimen: [id number] SOUT Spec Date: 04/30/[address]: Jose D Younger i, MD Spec Type: SURGICAL P Received: 05/01/07-0636 Copies to: Shad Estes III, MD SPECIMEN 1) LEFT LOBE PROSTATE BIOPSY APEX (APEX 3) 2) LEFT LOBE PROSTATE BIOPSY BASE (BASE 3) 3) RIGHT LOBE PROSTATE BIOPSY APEX (APEX 3) 4) RIGHT LOBE PROSTATE BIOPSY BASE (BASE 4) HISTORY PRE-OP DIAGNOSIS: Grade III right lobe, diffuse firmness, PSA 4.11 GROSS DESCRIPTION 1) The specimen is received in formalin [facility], Left Prostate Lobe [place], and consists of three, garcía, soft tissue cores measuring 1.7 cm., 1.8 cm., and 1.6 x 0.1 cm. Submitted entirely, one cassette. 2) The specimen is received in formalin [facility], Left Prostate Lobe [place], and consists of three, garcía, soft tissue cores measuring 1.9 cm., 1.7 cm., and 1.5 x 0.1 cm. Submitted entirely, one cassette. 3) The specimen is received in formalin labelled Wilfried [facility], Right Prostate Lobe [place], and consists of three, garcía, soft tissue cores measuring 2.0 cm., 1.8 cm., and 1.5 x 0.1 cm. Submitted entirely, one cassette. 4) The specimen is received in formalin labelled Wilfried [facility], Right Prostate Lobe Base, and consists of [...] apex, core biopsies: -- DEPARTMENT OF PATHOLOGY, [address] [place] [address] [facility] Permit #[id number] Pal Garcia M.D. Director of Laboratories -- -- RUN DATE: 05/02/07 [facility] NMI LIVE PAGE 2 RUN TIME: 1552 Specimen Inquiry RUN USER: INTERFACE -- SPEC #: [id number] PATIENT: NAVEEN HICKEY #[id number] (Continued) -- DIAGNOSIS (Continued) A) Benign prostate tissue. B) No evidence of neoplasia. 4) Prostate, right base, core biopsies: A) Benign prostate tissue. B) No evidence of neoplasia. Signed Electronically by: PAL GARCIA MD 05/02/07 1552 -- -- DEPARTMENT OF PATHOLOGY, [address] [place] [address] [facility] Permit #[id number] Pal Garcia M.D. Director of Laboratories -- 64 * SERUM LEVELS OF PSA MEASURED USING THE ELKIN [employer] ACCESS HYBRITECH IMMUNOASSAY SHOULD NOT BE INTERPRETED [...] . Procedures Date CPT Code Description Status 09/14/201790962 Inject/Drain Joint/Bursa Major W/O US Completed 06/20/2017 23040 EKG Tracing & Interpretation Completed 06/30/2016 01500 EKG Tracing & Interpretation Completed 04/07/2016 Inject/Drain Joint/Bursa Small W/O US Completed 07/08/2015 20000 EKG Tracing & Interpretation Completed 03/13/2014 87250 EKG Tracing & Interpretation Completed 11/01/2012 44210 EKG Tracing & Interpretation Completed 10/01/2012 05057 ECHO Transthoracic, Real-Time 2D With Doppler And Color Completed Flow 08/02/2010 Colonoscopy Completed 10/05/2008 57151 Holter Monitor Interpretation Completed 08/24/2008 04367 EKG Tracing & Interpretation Completed 08/13/2008 86716 EKG Tracing & Interpretation Completed 06/05/2008 46969 EKG Tracing & Interpretation Completed 06/01/2008 33877 Color Doppler Completed 06/01/2008 02589 Pulse Doppler & Continuous Wave Completed 06/01/2008 80023 Echocardiogram Completed 06/01/2008 85115 ECHO Transthoracic, Real-Time 2D With Doppler And Color Completed Flow 04/29/2008 66061 EKG Tracing & Interpretation Completed 12/08/2005 16688 Color Doppler Completed 12/08/2005 68093 Color Doppler Completed 12/08/2005 02229 Pulse Doppler & Continuous Wave Completed 12/08/2005 57365 Echocardiogram Completed 12/08/2005 64450 Echocardiogram Completed Encounters Type Date Location Provider CPT E/M Dx Office Visit 06/20/2017 [facility] Carito Shahid, [address]37 I34.9 3:30p [place] I48.0 Office Visit 06/30/2016 3:30p [facility] Carito Shahid 42558 I34.9 [place] I48.0 Office Visit 04/07/2016 11:00a [facility] [place] [address] M18.12 [facility] S63.115A Office Visit 07/22/2015 10:00a [facility] Shad Estes, [address] N40.1 - [place] R36.9 Office Visit 07/08/2015 9:00a [facility] Carito Shahid [address]39 I34.0 [place] Office Visit 06/19/2014 1:00p [facility] Shad Estes, [address] V72.83 - [place] 365.9 424.0 272.0 600.20 Office Visit 03/13/2014 8:15a [facility] Carito Shahid 07861 424.0 [place] Office Visit 11/01/2012 2:30p [facility] Carito Shahid [address]77 424.0 [place] 427.31 Office Visit 05/25/2011 2:40p [facility] Shad Estes, [address] V70.0 - [place] 272.0 424.0 V06.5 Office Visit 05/18/2010 2:00p DO Not Use [facility] AT [facility], [address] V70.0 [facility] 272.0 424.0 602.9 Office Visit 08/13/2008 8:20a [facility] [address] 424.0 M.DDany 272.2 425.9 427.31 Office Visit 06/05/2008 11:00a [facility] [address] 785.2 .D 424.0 786.05 Office Visit 04/29/2008 1:30p [facility] AT [facility], [address] 785.2 [facility] [place].0 Office Visit 06/06/2007 2:15p [facility] AT [facility], [address] 389.9 [facility].DDany Office Visit 03/21/2007 9:30a [facility] AT [facility], [address] 602.9 [facility].DDany Plan of Care Future Appointment(s):10/03/2017 10:45 am - Karyn Alvarez M.D. at [facility]/18/2018 9:20 am - Shad Estes M.D. at [facility] - Rakmkopxy94/13/2018 - Karyn Alvarez M.D.M25.561 Pain in right kneeFollow up:Follow up: 2 uabjjX56.461 Effusion, right kneeM17.11 Unilateral primary osteoarthritis, right kneeM25.511 Pain in right shoulder
[2017-10-11] MEDS ORDERED: Bupivacaine 0.5% PF 10 ML VIAL INJ ONE ×3 (12:46→14:00)
[2017-10-11] MEDS ORDERED: Tranexamic Acid 1,000 MG/10 ML 1,000 MG in NS 0.9% 100 ML* 100 ML IV ONE (13:00)
[2017-10-11] MEDS ORDERED: Tranexamic Acid 1,000 MG/10 ML SDV IV ONE (13:00)
[2017-10-11] MEDS ORDERED: oxyCODONE/Acetamin 5/325 MG* TAB PO PRN ×2 (15:24→16:00)
[2017-10-11] MEDS ORDERED: Ondansetron INJ* 2 MG/ML VIAL IV PRN ×2 (15:24→16:00)
[2017-10-11] MEDS ORDERED: Acetaminophen TAB* 325 MG PO PRN (15:24)
[2017-10-11] MEDS ORDERED: Bupivacaine-MPF SPINAL* 7.5 MG/ML - 2ML AMP ONE (15:24)
[2017-10-11] MEDS ORDERED: Propofol* 10 MG/ML 20 ML BTL IV PUSH ONE (15:24)
[2017-10-11] MEDS ORDERED: Lidocaine 2% PF * 5 ML VIAL ONE (15:24)
[2017-10-11] MEDS ORDERED: fentaNYL* 50 MCG/ML 2 ML VIAL (100 MCG VIAL) IV PRN (15:24)
[2017-10-11] MEDS ORDERED: Naloxone* 0.4 MG/ML 1 ML VIAL IV PRN (15:24)
[2017-10-11] MEDS ORDERED: Bisacodyl SUPP* 10 MG SUPP PR PRN (16:00)
[2017-10-11] MEDS ORDERED: Magnesium Hydroxide LIQ* 30 ML UDC PO PRN (16:00)
[2017-10-11] MEDS ORDERED: diPHENhydraMINE IV* 50 MG/ML 1 ml VIAL (BENADRYL) IV PRN (16:00)
[2017-10-11] MEDS ORDERED: Morphine VIAL* 4 MG/ML VIAL (1 ml vial) IV PRN (16:00)
[2017-10-11] MEDS ORDERED: Cyclobenzaprine TAB* 10 MG PO PRN (16:00)
[2017-10-11] MEDS ORDERED: Warfarin TAB(*) 6 MG PO ONE (17:00)
--- NOTE | 2017-10-11 17:41 | RAD ---
Indication: Postop RIGHT total knee replacement. Comparison: September 14, 2017 Technique: RIGHT knee: AP and crosstable lateral views. Report: Total knee prosthesis in place with normal alignment. Negative for periprosthetic fracture. Gas and fluid in the joint space and subcutaneous tissues anteriorly. Peripheral vascular calcifications. IMPRESSION: #. Unremarkable immediate postop appearance following RIGHT total knee replacement.
[2017-10-11] MEDS: oxyCODONE/Acetamin 5/325 MG* TAB PO PRN (18:39)
[2017-10-11] MEDS: oxyCODONE TAB* 5 MG TAB PO PRN (20:35)
[2017-10-11] MEDS: Docusate CAP* 100 MG PO SCH (20:35)
[2017-10-11] MEDS: Magnesium Hydroxide LIQ* 30 ML UDC PO SCH (20:36)
[2017-10-11] MEDS: Acetaminophen TAB* 325 MG PO SCH (20:38)
[2017-10-11] MEDS: ceFAZolin 1 GM ADVAN(*) 1 GM in NS 0.9% 50 ML* 50 ML IVPB SCH (21:55)
--- NOTE | 2017-10-12 00:50 | PM ---
PREOPERATIVE BLOCK NOTE: DATE OF VISIT: 10/11/17 - ROOM #349 PROCEDURE PERFORMED BY: Shani Reid MD PRE-OP DIAGNOSIS: Right knee osteoarthritis. POST-OP DIAGNOSIS: Right knee osteoarthritis. OPERATIVE PROCEDURE: Right total knee replacement. Right adductor canal nerve block per surgeon's request to address post operative pain control. DESCRIPTION OF PROCEDURE: The patient was in the preoperative holding area. The risks and benefits of the procedure were discussed with the patient including, but not limited to, bleeding, bruising, infection, nerve injury. The patient verbalized understanding and elected to proceed with the nerve block. Informed consent was obtained. The patient was sedated with 2 mg of Versed and 50 mcg of fentanyl for anxiolysis for the procedure. His vitals were monitored and remained stable throughout the procedure. The right thigh was prepped and draped in the usual sterile fashion. An ultrasound was used to identify the right adductor canal. The surrounding vasculature and nerves were visualized. Subsequently, a total of 15 mL of 0.5% bupivacaine with 1:200,000 epinephrine was injected using a 21-gauge 4-inch EchoStim needle. The needle visualization was complete throughout the entire procedure. Aspirate was negative for heme throughout the procedure. There was no intraneural or intravascular injections of local anesthetic. The patient tolerated the procedure well with no paresthesias and was subsequently taken to the operating room for surgery. His vitals remained stable throughout the procedure. The procedure was done for postoperative pain control per the surgeon's request. An ultrasound machine was used and the picture was printed and taped in the patient's chart per usual. [id number]/[facility] #: [id number] [facility]
[2017-10-12 05:45] LABS: Hematocrit 42 % (42-52); Hemoglobin 14.1 g/dl (14.0-18.0); Mean Platelet Volume 7.8 um3 (7.4-10.4); Platelet Count 125 10^3/ul (150-450)
[2017-10-12 05:53] LABS: INR 0.98 (0.77-1.02)
[2017-10-12] MEDS: ceFAZolin 1 GM ADVAN(*) 1 GM in NS 0.9% 50 ML* 50 ML IVPB SCH ×2 (05:53→15:03)
[2017-10-12] MEDS: Acetaminophen TAB* 325 MG PO SCH ×3 (05:53→21:02)
[2017-10-12 06:12] LABS: EGFR Non-African American 90.8 (>60)
[2017-10-12] MEDS: FLAXSEED PO SCH (08:28)
[2017-10-12] MEDS: Docusate CAP* 100 MG PO SCH ×2 (08:33→21:02)
[2017-10-12] MEDS: Vitamin THERAPEUTIC TAB PO SCH (08:33)
[2017-10-12] MEDS: oxyCODONE TAB* 5 MG TAB PO PRN (08:33)
--- NOTE | 2017-10-12 10:01 | OP ---
DATE OF OPERATION: 10/11/17 - ROOM #349 DATE OF : 31 SURGEON: Karyn Alvarez MD PANEL WIRER: NEVIN Lucia. Ms. Reyes did help throughout the procedure with preparation of the leg, wound retraction, manipulation of the knee, and wound closure. ANESTHESIOLOGIST: Dr. Caldera. ANESTHESIA: Spinal. PRE-OP DIAGNOSIS: Severe end-stage degenerative osteoarthritis of the right knee joint. POST-OP DIAGNOSIS: Severe end-stage degenerative osteoarthritis of the right knee joint. OPERATIVE PROCEDURE: Right total knee arthroplasty. TOURNIQUET TIME: 48 minutes. COMPLICATIONS: None. ESTIMATED BLOOD LOSS: 200 cc. SPECIMEN: Bone and cartilage from the right knee joint sent to Pathology. HARDWARE USED: This is cemented knee arthroplasty hardware, 2 packages of Simplex bone cement. For the femur, a size 6 right posterior stabilized Legion femoral component. For the tibia, size 5 right tibial base plate, Brinda II. For the insert, a 9-mm posterior stabilized articular insert size 5/6. For the patella 32- mm 3-peg all poly patella with 7.5 thickness. BRIEF HISTORY/INDICATION: Mr. Hickey is an 82-year-old gentleman with years of increasingly severe right knee pain. The patient failed conservative treatment with anti-inflammatories, pain medication, and physical therapy. Due to continued pain and decreased quality of life, he elected to undergo right total knee arthroplasty. Radiographs showed ibcc-of-kocx arthritis. Informed consent was obtained from the patient. He understood the risks of this surgery included but were not limited to bleeding, infection, damage to nearby structures, continued pain, need for further surgery, intraoperative fracture, nerve palsy, hardware failure or loosening, knee stiffness, loss of motion, stroke, heart attack, blood clot, and . He wished to proceed. INTRAOPERATIVE FINDINGS: Intraoperatively, the patient was noted to have severe end-stage arthritis with complete thickness loss of cartilage in all 3 compartments. Patellofemoral compartment was most effected with complete loss of cartilage and abnormal bony deformation along the lateral patellar facet. DESCRIPTION OF PROCEDURE: Mr. Hickey was identified in the preanesthesia unit. His right lower extremity was marked as the correct operative side. Informed consent was signed and placed in the chart. The patient was taken to the operating room and placed under spinal anesthesia without difficulty. A Hopkins catheter was placed. A tourniquet was placed on the right thigh. Right lower extremity was prepped and draped in the usual sterile fashion. Preop time -out was made to correctly identify the patient, side, and site. Appropriate perioperative antibiotics were given within 1 hour of incision. Tourniquet was inflated and total tourniquet time for this procedure was 48 minutes. A midline incision was made with a 10-blade and carried down to the extensor mechanism. A new 10-blade was used to make a standard medial parapatellar arthrotomy. The patella was subluxed laterally. Electrocautery was used to subperiosteally elevate the soft tissue off the superomedial tibia to the mid sagittal plane. The knee was flexed up. The anterior horn of the lateral meniscus and ACL were sharply released. A drill was used to enter the distal femur. Intramedullary distal femoral cutting guide was pinned on the distal femur. Oscillating saw was used to make the distal femoral cut. Next, the external rotation guide was pinned on the distal femur. Distal femur was sized to a size 6. Size 6 multi-cutting jig was pinned on the distal femur. The oscillating saw was used to make the 4 chamfer cuts. The PCL was completely released and the tibia was subluxed anteriorly. Extramedullary tibial cutting guide was pinned on the proximal tibia. The proximal tibial cut was made with an oscillating saw perpendicular to the mechanical axis of the tibia. The bone was carefully removed. The knee was brought out into full extension. A spacer block had excellent fit. There was good medial and lateral ligamentous balancing. Flexion and extension gaps were well balanced. The knee was flexed up. Lamina fryer line helper was placed both medially and laterally. Any remaining meniscus was carefully removed using electrocautery. A curved osteotome was used to remove any posterior osteophytes. Tibial tray and drop gio were placed and confirmed a satisfactory tibial cut. A size 6 right femoral trial was impacted onto the distal femur and it had good fit. The box for the posterior stabilized implant was prepared using a reamer and box cut osteotome. A size 5 tibial tray trial with a 9-mm insert trial was placed and the knee was taken through a range of motion. The knee had full extension to 130 degrees of flexion with satisfactory patellofemoral tracking. The patella was everted. A 7 mm of patellar bone and cartilage was carefully removed using an oscillating saw. The lateral patellar facet had bony deformation from chronic wear. Patella was sized to a size 32. Three peg holes were drilled through the size 32 guide. A 32 trial with 7.5 thickness was chosen and placed on the patella. The knee was taken through a range of motion. There was satisfactory patellofemoral tracking. All trials were carefully removed. The tibia was subluxed anteriorly and sized to a size 5. Proximal tibia was prepared using a size 5 keel punch. All bony cut surfaces were copiously irrigated with sterile saline and dried. Final implants were cemented into place starting with the tibia, followed by the femur , and lastly the patella. A 9-mm insert trial was placed and the knee was brought out into full extension. Tourniquet was turned down at 48 minutes. Electrocautery was used to obtain meticulous hemostasis. The knee was copiously irrigated with sterile saline. Once the cement had fully cured, the insert trial was removed. Any excess cement was removed from around the capsule and hardware. Final insert chosen was a 9-mm posterior stabilizer articular insert size 5/6. This was locked into position on the tibial tray. Stability of the insert was checked and rechecked and noted to be stable. The knee was once again copiously irrigated with sterile saline. The extensor mechanism was closed using interrupted #1 Vicryl. The rest of the incision was closed in a layered fashion using 0 and 2-0 Vicryl. Skin was closed using running 3-0 nylon suture. Sterile Xeroform, 4x4s, and Webril were used to cover the incision. Norm wrap and cold pack were placed over this. The patient' s anesthesia was reversed without difficulty and he was taken to the PACU in stable condition. Intended weightbearing will be weightbearing as tolerated. Intended DVT prophylaxis will be Coumadin with a Lovenox bridge. [id number]/[facility] #: [id number] [facility] HEALTH SYSTEMMike
--- NOTE | 2017-10-12 12:30 | PN ---
Progress Note - Progress Note Date of Service: 10/12/17 SOAP: Subjective: [Pt was seen today sitting up in bed eating lunch. States that he is doing well. Pain is well controlled and mild in nature. He states that he will hopefully go home tomorrow. Denies any chest pain, SOB, nausea, vomiting. ] Objective: [General: A&O, NAD MSK: RLE: Dressing is c/d/i. +df/pf. Calves are soft and non tender. 2+ PT pulse. Sensation intact to light touch distally. ] Assessment: [POD 1 - RTKA ] Plan: [- PT/OT - Continue with current pain medication - 8mg of warfarin tonight - will evaluate for possible DC tomorrow. ]
[2017-10-12] MEDS: Magnesium Hydroxide LIQ* 30 ML UDC PO SCH ×2 (12:38→21:02)
[2017-10-12] MEDS: Enoxaparin(*) 30 MG/0.3 ML SYR SUBCUT SCH (12:38)
[2017-10-12] MEDS ORDERED: Warfarin TAB(*) 4 MG PO SCH (17:00)
[2017-10-12] MEDS: oxyCODONE/Acetamin 5/325 MG* TAB PO PRN (17:17)
[2017-10-13] MEDS: oxyCODONE TAB* 5 MG TAB PO PRN ×2 (01:26→05:44)
[2017-10-13] MEDS: Acetaminophen TAB* 325 MG PO SCH ×3 (05:43→21:14)
[2017-10-13 05:45] LABS: Hematocrit 41 % (42-52); Mean Platelet Volume 7.7 um3 (7.4-10.4); Platelet Count 119 10^3/ul (150-450)
[2017-10-13 05:48] LABS: INR 1.59 (0.77-1.02)
[2017-10-13] MEDS: FLAXSEED PO SCH (07:46)
[2017-10-13] MEDS: Magnesium Hydroxide LIQ* 30 ML UDC PO SCH ×2 (08:53→21:14)
[2017-10-13] MEDS: Vitamin THERAPEUTIC TAB PO SCH (08:53)
[2017-10-13] MEDS: Docusate CAP* 100 MG PO SCH ×2 (08:53→21:14)
[2017-10-13 10:08] LABS: ABS Basophils 0.1 10^3/ul (0-0.2); ABS Eosinophils 0 10^3/ul (0-0.6); ABS Neutrophils 5.3 10^3/ul (1.5-7.7); ABS Nucleated RBC 0 10^3/ul; Eosinophil % 0.1 % (0-6); Hematocrit 40 % (42-52); Hemoglobin 13.4 g/dl (14.0-18.0); Lymphocyte % 13.5 % (25-47); Mean Corpuscular HGB Conc 34 g/dl (31-36); Mean Corpuscular Hemoglobin 33 pg (27-31); Mean Corpuscular Volume 98 fL (80-94); Mean Platelet Volume 7.6 um3 (7.4-10.4); Nucleated Red Blood Cells % 0; Platelet Count 124 10^3/ul (150-450); Red Blood Count 4.05 10^6/ul (4.00-5.40); Red Cell Distribution Width 15 % (10.5-15); White Blood Count 7.4 10^3/ul (3.5-10.8)
[2017-10-13 10:24] LABS: EGFR Non-African American 72.9 (>60)
--- NOTE | 2017-10-13 10:30 | PN ---
Progress Note - Progress Note Date of Service: 10/13/17 SOAP: Subjective: Pt was doing well when I saw him. Pain controlled. Progressing well with PT. Denies F/C, CP/SOB, or calf pain. Had an episode of near syncope and vomiting later while up and walking. Objective: PE- 82 y/o WDWM NAD, A&O x3 RLE- dressing changed, inc c/d/i, calf soft NT, + ankle DF/PF, +2 Dp pulse, SILT distally Vital Signs Temp Pulse Resp BP Pulse Ox 97.9 F 76 16 109/63 98 10/13/17 08:00 10/13/17 08:00 10/13/17 08:00 10/13/17 08:00 10/13/17 08:00 Laboratory Results - last 24 hr 10/13/17 10/13/17 10/13/17 05:19 05:19 10:00 WBC 7.4 RBC 4.05 Hgb 14.0 13.4 L Hct 41 L 40 L MCV 98 H MCH 33 H MCHC 34 RDW 15 Plt Count 119 L 124 L MPV 7.7 7.6 Neut % (Auto) 72.1 Lymph % (Auto) 13.5 L Collingsworth % (Auto) 13.5 H Eos % (Auto) 0.1 Baso % (Auto) 0.8 Absolute Neuts (auto) 5.3 Absolute Lymphs (auto) 1.0 Absolute Monos (auto) 1.0 H Absolute Eos (auto) 0 Absolute Basos (auto) 0.1 Absolute Nucleated RBC 0 Nucleated RBC % 0 INR (Anticoag Therapy) 1.59 H Sodium Potassium Chloride Carbon Dioxide Anion Gap BUN Creatinine Est GFR ( Amer) Est GFR (Non-Af Amer) BUN/Creatinine Ratio Glucose Calcium Troponin I 10/13/17 10:00 WBC RBC Hgb Hct MCV MCH MCHC RDW Plt Count MPV Neut % (Auto) Lymph % (Auto) Collingsworth % (Auto) Eos % (Auto) Baso % (Auto) Absolute Neuts (auto) Absolute Lymphs (auto) Absolute Monos (auto) Absolute Eos (auto) Absolute Basos (auto) Absolute Nucleated RBC Nucleated RBC % INR (Anticoag Therapy) Sodium 138 Potassium 3.8 Chloride 104 Carbon Dioxide 28 Anion Gap 6 BUN 15 Creatinine 0.98 Est GFR ( Amer) 88.2 Est GFR (Non-Af Amer) 72.9 BUN/Creatinine Ratio 15.3 Glucose 119 H Calcium 8.8 Troponin I 0.01 Assessment: [POD 2 - RTKA ] Plan: [-Appreciate hospitalist input for near syncope and vomiting - Cont PT/OT- WBAT when able - Continue with current pain medication - 8 mg of warfarin tonight, DC lovenox - Plan possible DC to home with VNS when medically stable.
[2017-10-13] MEDS: Enoxaparin(*) 30 MG/0.3 ML SYR SUBCUT SCH (12:25)
--- NOTE | 2017-10-13 13:46 | CONS ---
CC: Dr. Estes; Dr. Alvarez CONSULTATION REPORT: DATE OF CONSULT: 10/13/17 TIME OF EVALUATION: 09:30 a.m. PRIMARY CARE PROVIDER: Dr. Estes. ORTHOPEDIST: Dr. Alvarez. CHIEF COMPLAINT: Clinical assessment team. HISTORY OF PRESENT ILLNESS: Mr. Hickey is an 82-year-old male with a past medical history of dege nerative joint disease, bilateral inguinal hernia, BPH, status post mitral valve repair, who was admi tted on October 11 for an elective right total knee arthropathy performed by Dr. Alvarez on that same d ate. The patient was doing well on the postop period but today a clinical assessment team was called while the patient was walking with physical therapy. He states that he felt dizzy and lightheaded a nd that he was going to pass out. Physical therapy was able to sit him on a chair and by the time of my arrival, the patient was pale, diaphoretic, but stated that he was feeling better. He denied jairo st pain, palpitations, or shortness of breath. His blood pressure at that time was 70/40 with a hear t rate in the 70s. PAST MEDICAL HISTORY: 1. Degenerative joint disease. 2. Bilateral inguinal hernias. 3. BPH. 4. History of severe mitral valve regurgitation, status post mitral valve repair in 2008. He had AF ib perioperatively in 2008. His last echocardiogram as per Cardiology note was in 2012 with an eject ion fraction of 60% with mild mitral regurgitation and trace mitral stenosis. MEDICATION LIST: The patient only takes flaxseed 1 teaspoon p.o. daily. ALLERGIES: No known drug allergies. FAMILY HISTORY: Reviewed and noncontributory. SOCIAL HISTORY: No history of tobacco, alcohol, or drug use. He is a retired professor. Surrogate decision maker is his , Marciano Hickey, phone number is [phone]. REVIEW OF SYSTEMS: A 14-point review of systems was performed and all the pertinent negative and pos itive findings are in the HPI. PHYSICAL EXAM: Vital Signs: Temperature 97.9, heart rate is 70, respiratory rate 16, oxygen saturat ion 98% on room air, blood pressure is 70/40. General: The patient is a pleasant elderly male, sitt ing up in a chair, in no acute distress. Mild diaphoresis. HEENT: Pupils are equal, moist mucous me mbranes. CVS: Normal S1, S2. Regular rate and rhythm with a systolic murmur. Chest: Breath sound s bilaterally with no added sounds. Abdomen: Soft, bowel sounds are present. Extremities: The mat ent had a congestion to his right knee. No lower extremity edema. Neuro: He is alert and oriented x3. Able to move all 4 extremities. LABORATORY AND IMAGING DATA: The patient had a hemoglobin of 14, hematocrit of 41, platelets of 119 today with an INR of 1.5 and chemistry showed sodium of 139, potassium 4.4, chloride 105, bicarb of 3 0, BUN of 18, creatinine was 0.81, glucose of 98 with calcium of 8.7. This was done yesterday. An EKG done on 10/13/17, at 09:42 a.m. showed sinus rhythm at 67 beats per minute with flat T waves i n 1, 2, 3, aVL, aVF and those are new when compared to his prior EKG from 10/03/17. ASSESSMENT AND PLAN: 1. Mr. Hickey is an 82-year-old male with past medical history of severe mitral regurgitation, st atus post mitral valve repair, otherwise is pretty healthy, who was admitted for an elective right to ash knee arthropathy and had a clinical assessment team secondary to a near syncopal episode. I suspect his episode was likely vasovagal in nature. The patient will be monitored on telemetry. W e are going to check labs including troponins and we will request a transthoracic echocardiogram cons idering his history of mitral valve regurgitation status post repair. He will receive IV hydration and we are going to monitor his rhythm on telemetry. We will continue pain management with oxycodone. 2. DVT prophylaxis. The patient is on Lovenox and warfarin. 3. Code status is full. TIME SPENT: Approximately 40 minutes was spent with the patient's interview, medical records review, physical examination to complete this consultation, more than half of this time was spent face-to-fa ce with the patient in coordination of care. [id number]/[facility] #: [id number]
[2017-10-13] MEDS ORDERED: Warfarin TAB(*) 4 MG PO ONE (17:00)
[2017-10-14] MEDS: Acetaminophen TAB* 325 MG PO SCH ×3 (06:03→21:11)
[2017-10-14 06:25] LABS: Hematocrit 38 % (42-52); Mean Platelet Volume 7.8 um3 (7.4-10.4); Platelet Count 126 10^3/ul (150-450)
[2017-10-14 06:33] LABS: INR 2.65 (0.77-1.02)
[2017-10-14] MEDS: FLAXSEED PO SCH (08:02)
[2017-10-14] MEDS: Docusate CAP* 100 MG PO SCH ×2 (08:03→21:10)
[2017-10-14] MEDS: Vitamin THERAPEUTIC TAB PO SCH (08:03)
[2017-10-14] MEDS: Magnesium Hydroxide LIQ* 30 ML UDC PO SCH ×2 (08:05→21:10)
[2017-10-14 10:45] LABS: EGFR Non-African American 74.6 (>60)
--- NOTE | 2017-10-14 11:32 | PN ---
Progress Note - Progress Note Date of Service: 10/14/17 SOAP: Subjective: Pt is doing well. Eager to go home. Denies CP/SOB, F/C, calf pain. Progressing well with PT Objective: 82 y/o WDWN NAD, A&Ox3 RLE- inc c/d/i, calf soft NT, +DF/PF, +2 Dp pulse, SILT distally Vital Signs Temp Pulse Resp BP Pulse Ox 98.6 F 83 14 103/69 98 10/14/17 08:14 10/14/17 08:14 10/14/17 08:14 10/14/17 08:14 10/14/17 08:14 Laboratory Results - last 24 hr 10/13/17 10/13/17 10/13/17 10:00 12:56 16:01 Hgb Hct Plt Count MPV INR (Anticoag Therapy) Sodium 138 Potassium 3.8 Chloride 104 Carbon Dioxide 28 Anion Gap 6 BUN 15 Creatinine 0.98 Est GFR ( Amer) 88.2 Est GFR (Non-Af Amer) 72.9 BUN/Creatinine Ratio 15.3 Glucose 119 H Calcium 8.8 Magnesium 2.4 Troponin I 0.01 0.01 0.01 10/14/17 10/14/17 10/14/17 06:05 06:10 06:10 Hgb 13.0 L Hct 38 L Plt Count 126 L MPV 7.8 INR (Anticoag Therapy) 2.65 H Sodium 140 Potassium 4.1 Chloride 104 Carbon Dioxide 31 Anion Gap 5 BUN 13 Creatinine 0.96 Est GFR ( Amer) 90.3 Est GFR (Non-Af Amer) 74.6 BUN/Creatinine Ratio 13.5 Glucose 101 H Calcium 8.2 L Magnesium 2.3 Troponin I Assessment: [POD 3 - RTKA ] Plan: [-Appreciate hospitalist input for near syncope and vomiting, -Cont cardiac workup per hospitalist for Vtach, echo today, possible stress test tomorrow - Cont PT/OT- WBAT - Continue with current pain medication - hold warfarin tonight, DC lovenox - Plan possible DC to home with VNS when medically stable and cleared by cardio.
--- NOTE | 2017-10-14 13:45 | ECHO ---
Patient: NAVEEN JACKSON [facility] Rec#: [id number] : 1935 Date: 10/14/2017 Age: 82y Height: 172.72 cm / 68.0 in Weight: 61.69 kg / 136.0 lbs Sex: M BSA: 1.73 Room#: [facility] Admit Date#: 10/11/2017 Type: Inpatient Referring: Renee Fink MD Reading: Mauro Roca MD Associate Professor Of Biostatistics: Roxann Drake RDCS CC: Shad Estes MD Transthoracic Echocardiogram Indication: Syncope BP: 110/71 HR: 75 Rhythm: NSR with PVCs Findings History: S/P MV repair 2008 with # 23 ring, TV ring. Technical Comments: The study quality is fair. Completed at 1300. Left Ventricle: The left ventricular chamber size is decreased. Mild to moderate concentric left ventricular hypertrophy is observed.False tendon present. There is normal left ventricular systolic function. The estimated ejection fraction is 60-65%. There is septal flattening of the interventricular septum consistent with right ventricular volume or pressure overload. Abnormal left ventricular diastolic function is observed. Abnormal left ventricular diastolic filling is observed, consistent with impaired relaxation. Left Atrium: The left atrium is moderately dilated. Right Ventricle: Moderator Band present. The right ventricle is mildly dilated. The right ventricle wall thickness is mildly increased.7mm The right ventricular global systolic function is mildly to moderately reduced. Right Atrium: The right atrium is mildly dilated. Aortic Valve: The aortic valve is trileaflet. The aortic valve leaflets are mildly thickened. Focal aortic leaflet calcification is visualized.at the annulus between the NCC and the LCC. There is aortic annular calcification. There is a trace of aortic regurgitation. There is no evidence of aortic stenosis. Mitral Valve: There is trace to mild mitral regurgitation. There is mild mitral stenosis. Mitral valve repair functioning normally. Tricuspid Valve: The tricuspid valve leaflets are normal. There is mild tricuspid regurgitation. The right ventricular systolic pressure is estimated at 26 mmHg. There is evidence that pulmonary hypertension may be underestimated. There is no tricuspid stenosis. Tricuspid valve repair is functioning normally. Pulmonic Valve: The pulmonic valve appears normal. There is mild pulmonic regurgitation. There is no pulmonic stenosis. Pericardium: There is no significant pericardial effusion. Aorta: There is mild dilatation of the ascending aorta. There is no dilatation of the aortic arch. There is mild dilatation of the aortic root. Pulmonary Artery: The main pulmonary artery is not well visualized. Venous: The inferior vena cava appears normal in size. There is a greater than 50% respiratory change in the inferior vena cava dimension. Conclusions Mild to moderate concentric left ventricular hypertrophy is observed.False tendon present. There is normal left ventricular systolic function. The estimated ejection fraction is 60-65%. There is septal flattening of the interventricular septum consistent with right ventricular volume or pressure overload. Abnormal left ventricular diastolic function is observed. The left atrium is moderately dilated. The right ventricle is mildly dilated. The right ventricle wall thickness is mildly increased.7mm The right ventricular global systolic function is mildly to moderately reduced. The aortic valve leaflets are mildly thickened. There is a trace of aortic regurgitation. There is trace to mild mitral regurgitation. There is mild mitral stenosis. Mitral valve repair functioning normally. compared to 2009, the RV dilatation and dysfunction are new. Consider cor pulmonale, possibly acute. Consider pulmonary embolism. Discussed with Tico Aguilera. Measurements Name Value Normal Range RVIDd (AP) 2D 3.9 cm (0.9 - 2.6) RVDdMajor (2D) 4.8 cm (2.2 - 4.4) RAd ISD 4CH 4.6 cm (3.4 - 4.9) RA (A4C)W 5 cm (2.9 - 4.6) IVSd (2D) 1.3 cm (0.6 - 1) LVPWd (2D) 1.3 cm (0.6 - 1) LVIDd (2D) 3.5 cm (3.6 - 5.4) LVIDs (2D) 2.1 cm - LV FS (2D) 40 % (25 - 45) Aortic Annulus 2.4 cm (1.4 - 2.6) Ao root diameter (2D) 3.9 cm (2.1 - 3.5) Ascending Ao 3.7 cm (2.1 - 3.4) Aortic arch 3.1 cm (1.8 - 3.4) LA dimension (AP) 2D 3.8 cm (2.3 - 3.8) LAd ISD 4CH 4.6 cm (2.9 - 5.3) LA ISD 4CH W 3.7 cm (2.5 - 4.5) Name Value Normal Range LA ESV SP 4CH (A/L) 49 ml - LA ESV SP 2CH (A/L) 93 ml - LA ESV BP (A/L) 78 ml - LA ESV BP (A/L) index 45 ml/m2 - LA ESV SP 4CH (MOD) 41 ml - LA ESV SP 2CH (MOD) 88 ml - Name Value Normal Range MV E-wave Vmax 0.67 m/sec - MV deceleration time 258.5 msec - MV A-wave Vmax 1 m/sec - MV E:A ratio 0.67 ratio - LV septal e' Vmax 0.06 m/sec - LV lateral e' Vmax 0.07 m/sec - LV E:e' septal ratio 11.17 ratio - LV E:e' lateral ratio 9.57 ratio - Name Value Normal Range AV Vmax 1.2 m/sec - AV VTI 22 cm - AV peak gradient 5.45 mmHg - AV mean gradient 2.34 mmHg - LVOT Vmax 1.1 m/sec - LVOT VTI 24.6 cm - LVOT peak gradient 5.12 mmHg - LVOT mean gradient 3.07 mmHg - CHUCKY Vmax 0.9 m/sec - Name Value Normal Range MV Vmax 1.35 m/sec - MV VTI 34.51 cm - MV peak gradient 7.33 mmHg - MV mean gradient 2.48 mmHg - MV PHT 126.6 msec - Name Value Normal Range TR Vmax 2.4 m/sec - TR peak gradient 23 mmHg - RAP 3 mmHg - RVSP 26 mmHg - IVC diameter 1.6 cm - Name Value Normal Range PV Vmax 0.76 m/sec - PV peak gradient 2.31 mmHg -
[2017-10-14] MEDS ORDERED: Iohexol 350* (CONTRAST) 500 ML MDV IV ONE (13:53)
--- NOTE | 2017-10-14 15:01 | RAD ---
INDICATION: Right ventricular dysfunction on echocardiography. COMPARISON: Comparison is made with a prior CT of the chest from September 06, 2008 and a prior chest x-ray from October 03, 2017. TECHNIQUE: A CT angiogram of the chest was performed with intravenous following intravenous injection of 61 ml of Omnipaque 350 nonionic contrast. Contiguous axial sections were obtained from the lung apices through the lung bases. Images were reconstructed in the coronal and sagittal planes. FINDINGS: There is relatively homogeneous opacification of the pulmonary arteries. No intraluminal filling defect or pulmonary embolism is seen. The heart is within normal limits in size. The patient is status post mitral valve replacement surgery. There are coronary artery calcifications present. No pericardial effusion is present. The ascending thoracic aorta is mildly ectatic measuring up to 4.0 cm in transverse dimension. No significant enlarged mediastinal or hilar lymph nodes are seen. There is mild dependent bilateral lower lobe infiltrates most consistent with atelectasis. No pleural effusion is seen. No acute findings are seen on images of the upper abdomen. There is a 5.2 cm cyst arising from the upper pole of the right kidney No significant focal osseous abnormality is seen. IMPRESSION: 1. NO EVIDENCE FOR PULMONARY EMBOLISM. 2. MILD ECTASIA OF THE ASCENDING THORACIC AORTA.
--- NOTE | 2017-10-14 16:47 | PN ---
Subjective Date of Service: 10/14/17 Interval History: Patient has been feeling well today. Controlled pain in knee. No CP, SOB, dizziness. Able to work with PT without incident. Denies F/C, sputum production , wheezing, cough, REED, nocturia, PND, orthopnea. Patient's states he snores. No previous sleep study. No abdominal pain, dysuria, calf swelling, diarrhea, or other pain. Family History: Unchanged from Admission Social History: Unchanged from Admission Past Medical History: Unchanged from Admission Objective Active Medications: Acetaminophen (Tylenol Tab*) 650 mg PO Q8H [facility] Last Admin: 10/14/17 12:59 Dose: 650 mg Bisacodyl (Dulcolax Supp*) 10 mg [place] DAILY PRN PRN Reason: constipation Cyclobenzaprine HCl (Flexeril Tab*) 5 mg PO TID PRN PRN Reason: SPASMS Last Admin: 10/11/17 22:02 Dose: 5 mg Diphenhydramine HCl (Benadryl Iv*) 25 mg IV Q6H PRN PRN Reason: itching Docusate Sodium (Colace Cap*) 100 mg PO BID [facility] Last Admin: 10/14/17 08:03 Dose: 100 mg Lactated Ringer's (Lactated Ringers 1000 Ml Bag*) 1,000 mls @ 75 mls/hr IV PER RATE [facility] Lactulose (Lactulose*) 30 ml PO Q6H PRN PRN Reason: constipation Magnesium Hydroxide (Milk Of Magnesia Liq*) 30 ml PO BID [facility] Last Admin: 10/14/17 08:05 Dose: Not Given Magnesium Hydroxide (Milk Of Magnesia Liq*) 30 ml PO Q6H PRN PRN Reason: constipation Morphine Sulfate (Morphine Vial*) 2 mg IV Q2H PRN PRN Reason: PAIN Multivitamins (Theragran Tab*) 1 tab PO DAILY [facility] Last Admin: 10/14/17 08:03 Dose: 1 tab Non-Formulary Medication (Flaxseed) 1 teasp PO DAILY [facility] Last Admin: 10/14/17 08:02 Dose: Not Given Ondansetron HCl (Zofran Inj*) 4 mg IV Q6H PRN PRN Reason: nausea Last Admin: 10/13/17 10:13 Dose: 4 mg Oxycodone HCl (Roxycodone Tab*) 10 mg PO Q4H PRN PRN Reason: PAIN - SEVERE Last Admin: 10/13/17 05:44 Dose: 5 mg Oxycodone/Acetaminophen (Percocet 5/325 Tab*) 1 tab PO Q4H PRN PRN Reason: PAIN Last Admin: 10/12/17 17:17 Dose: 1 tab Oxycodone/Acetaminophen (Percocet 5/325 Tab*) 2 tab PO Q4H PRN PRN Reason: PAIN Last Admin: 10/12/17 05:52 Dose: 2 tab Pharmacy Profile Note (Coumadin Daily Reminder*) 1 note FOLLOW UP 1700 [facility] Last Admin: 10/13/17 17:24 Dose: 1 note Vital Signs - 8 hr 10/14/17 10/14/17 10/14/17 12:38 15:36 16:00 Temperature 99.0 F 98.2 F Pulse Rate 90 71 Respiratory 14 16 Rate Blood Pressure 125/47 111/62 (mmHg) O2 Sat by Pulse 97 96 96 Oximetry Oxygen Devices in Use Now: None Appearance: Patient is an 82yo male who appears stated age and is sitting in the bed in [facility]. Eyes: No Scleral Icterus, PERRLA Ears/Nose/Mouth/Throat: NL Teeth, Lips, Gums, Clear Oropharnyx, Mucous Membranes Moist Neck: NL Appearance and Movements; NL JVP, Trachea Midline Respiratory: Symmetrical Chest Expansion and Respiratory Effort, Clear to Auscultation Cardiovascular: NL Sounds; No Murmurs; No JVD, RRR, - - Trace edema. Abdominal: NL Sounds; No Tenderness; No Distention, No Hepatosplenomegaly Lymphatic: No Cervical Adenopathy Extremities: No Edema, No Clubbing, Cyanosis Skin: No Rash or Ulcers, No Nodules or Sclerosis Neurological: Alert and Oriented x 3, NL Sensation, NL Muscle Strength and Tone , - - CN II-XII intact. Result Diagrams: 10/14/17 06:10 10/14/17 06:05 Assess/Plan/Problems-Billing Assessment: Patient is an 82yo male with a PMH for Mitral and Tricuspid valve repair, BPH, and OA who is here with an elective right knee repair complicated by syncope with an episode of asymptomatic ventricular tachycardia. - Patient Problems (1) Post-operative state Current Visit: Yes Status: Acute Code(s): Z98.890 - OTHER SPECIFIED POSTPROCEDURAL STATES SNOMED Code(s): 95163824 Comment: Management per primary team. H/H stable. Pain control good. PT/OT going well. Urinating without issue. No BM yet. (2) Ventricular tachycardia Current Visit: Yes Status: Acute Code(s): I47.2 - VENTRICULAR TACHYCARDIA SNOMED Code(s): 33074595 Comment: 8 beat run of VT this AM when patient was at rest. Polymorphic with irregular R- R interval. Possibly bigeminy with aberrently conducted sinus beats. Frequent non-sustained ectopy. Asymptomatic. No known history of ectopy or palpitations. Echo shows decreased RV function. Given presyncope, Concern for possible ischemia. Stress test for AM. Cardiology consult requested for AM. (3) Pre-syncope Current Visit: Yes Status: Acute Comment: While working with PT. No Palpitations, CP. BP read to be low. Recovered with sitting down. Nausea afterward. Troponins negative x3. Possibly vasovagal response. Not on telemetry at time, cannot rule out VT. Will get stress test and consideration should be given to retail loss prevention officer monitoring. (4) Pulmonary hypertension Current Visit: Yes Status: Acute Code(s): I27.20 - PULMONARY HYPERTENSION, UNSPECIFIED SNOMED Code(s): 99086628 Comment: Moderate pulmonary hypertension. Unknown cause. Not present on 2012 echo. CTA negative for PE. No REED. No symptoms of HFpEF. Diastolic Dysfunction on echo. No signs of fluid overload on exam. No smoking history or signs of chronic lung disease on CTA. Patient does snore, will order overnight pulse oximetry. Does not have body habitus classic for JEFFERY. (5) DVT prophylaxis Current Visit: Yes Status: Acute Code(s): HKG0026 - SNOMED Code(s): 652580554 Comment: Therapeutic on Coumadin. (6) Full code status Current Visit: Yes Status: Acute Code(s): Z78.9 - OTHER SPECIFIED HEALTH STATUS SNOMED Code(s): 397000917 Status and Disposition: Inpatient.
[2017-10-15 01:30] LABS: EGFR Non-African American 89.5 (>60)
--- NOTE | 2017-10-15 02:12 | PN ---
Progress Note - Progress Note Date of Service: 10/15/17 Note: Paged for frequent runs of nonsustained Vtach. Patient asymptomatic. EKG NSR. Repeat K and Mg- NOrmal. Awaiting cardiology consultation in AM. Will hold off on starting beta jacoby. COuld be etiology behind his syncopal episode.
[2017-10-15] MEDS ORDERED: Amiodarone 360 MG IVPREMIX* 360 MG/200 ML BAG IV ONE (03:16)
[2017-10-15] MEDS ORDERED: Amiodarone 150 MG IVPREMIX* 150 MG/100 ML BAG IV ONE (03:16)
[2017-10-15] MEDS: Acetaminophen TAB* 325 MG PO SCH ×3 (05:35→21:38)
[2017-10-15] MEDS ORDERED: Amiodarone 360 MG IVPREMIX* 360 MG/200 ML BAG IV SCH (09:15)
--- NOTE | 2017-10-15 09:37 | PN ---
Progress Note - Progress Note Date of Service: 10/15/17 SOAP: Subjective: []Patient seen at bedside. He is feeling well. He denies chest pain, shortness of breath, sensation of irregular heartbeats, nausea, dizziness. Right knee pain is well controlled. Objective: []General: Well appearing, NAD RLE: Dressing changed. Incision CDI without discharge or surrounding erythema. Thigh soft. DF/PF intact. DP2+, capillary refill less than two seconds distally. Sensation intact distally. Assessment: []POD 4 sp RTKA Plan: - Cont PT/OT- WBAT - Continue with current pain medication - coumadin 2 mg today - Plan possible DC to home with VNS when medically stable and cleared by cardio. - Appreciate medicine/ cane flume watcher care. Awaiting cardiology consult. Vital Signs Temp 98.0 F 10/15/17 13:14 Pulse 71 10/15/17 13:14 Resp 16 10/15/17 13:14 BP 112/81 10/15/17 13:14 Pulse Ox 99 10/15/17 13:14 Intake & Output 10/14/17 10/15/17 10/15/17 18:59 06:59 18:59 Intake Total 1450 1719.2 Output Total 700 1250 530 Balance 750 469.2 -530 Weight 148 lb 12.992 oz Intake: IV Fluids 980 1147 LR 980 1147 Medicated IV 72.2 CC - Amiodarone 72.2 Oral 470 500 Output: Urine 700 1250 530 Other: # Bowel Movements 0 Estimated Stool Amount Medium Laboratory Last Values WBC 7.4 10^3/ul (3.5-10.8) 10/13/17 10:00 RBC 4.05 10^6/ul (4.00-5.40) 10/13/17 10:00 Hgb 11.8 g/dl (14.0-18.0) L 10/15/17 10:59 Hct 34 % (42-52) L 10/15/17 10:59 MCV 98 fL (80-94) H 10/13/17 10:00 MCH 33 pg (27-31) H 10/13/17 10:00 MCHC 34 g/dl (31-36) 10/13/17 10:00 RDW 15 % (10.5-15) 10/13/17 10:00 Plt Count 129 10^3/ul (150-450) L 10/15/17 10:59 MPV 7.8 um3 (7.4-10.4) 10/15/17 10:59 Neut % (Auto) 72.1 % (38-83) 10/13/17 10:00 Lymph % (Auto) 13.5 % (25-47) L 10/13/17 10:00 [place] % (Auto) 13.5 % (0-7) H 10/13/17 10:00 Eos % (Auto) 0.1 % (0-6) 10/13/17 10:00 Baso % (Auto) 0.8 % (0-2) 10/13/17 10:00 Absolute Neuts (auto) 5.3 10^3/ul (1.5-7.7) 10/13/17 10:00 Absolute Lymphs (auto) 1.0 10^3/ul (1.0-4.8) 10/13/17 10:00 Absolute Monos (auto) 1.0 10^3/ul (0-0.8) H 10/13/17 10:00 Absolute Eos (auto) 0 10^3/ul (0-0.6) 10/13/17 10:00 Absolute Basos (auto) 0.1 10^3/ul (0-0.2) 10/13/17 10:00 Absolute Nucleated RBC 0 10^3/ul 10/13/17 10:00 Nucleated RBC % 0 10/13/17 10:00 INR (Anticoag Therapy) 2.00 (0.77-1.02) H 10/15/17 10:00 Sodium 138 mmol/L (135-145) 10/15/17 10:59 Potassium 4.0 mmol/L (3.5-5.0) 10/15/17 10:59 Chloride 105 mmol/L (101-111) 10/15/17 10:59 Carbon Dioxide 29 mmol/L (22-32) 10/15/17 10:59 Anion Gap 4 mmol/L (2-11) 10/15/17 10:59 BUN 10 mg/dL (6-24) 10/15/17 10:59 Creatinine 0.75 mg/dL (0.67-1.17) 08/13/18 10:59 Est GFR ( Amer) 120.1 (>60) 10/15/17 10:59 Est GFR (Non-Af Amer) 99.2 (>60) 10/15/17 10:59 BUN/Creatinine Ratio 13.3 (8-20) 10/15/17 10:59 Glucose 91 mg/dL (70-100) 10/15/17 10:59 Hemoglobin A1c 5.5 % (4.0-5.6) 10/14/17 06:10 Calcium 8.3 mg/dL (8.6-10.3) L 10/15/17 10:59 Magnesium 2.0 mg/dL (1.9-2.7) 10/15/17 01:00 Troponin I 0.01 ng/mL (<0.04) 10/13/17 16:01 B-Natriuretic Peptide 156 pg/mL (-100) H 10/15/17 10:59 Triglycerides 76 mg/dL 10/14/17 06:05 Cholesterol 150 mg/dL 10/14/17 06:05 LDL Cholesterol 75 mg/dL 10/14/17 06:05 HDL Cholesterol 59.8 mg/dL 10/14/17 06:05
[2017-10-15] MEDS: Docusate CAP* 100 MG PO SCH ×2 (09:53→21:38)
[2017-10-15] MEDS: FLAXSEED PO SCH (09:54)
[2017-10-15] MEDS: Vitamin THERAPEUTIC TAB PO SCH (09:54)
[2017-10-15] MEDS: Magnesium Hydroxide LIQ* 30 ML UDC PO SCH ×2 (09:54→21:38)
[2017-10-15 11:10] LABS: Hematocrit 34 % (42-52); Hemoglobin 11.8 g/dl (14.0-18.0); Mean Platelet Volume 7.8 um3 (7.4-10.4); Platelet Count 129 10^3/ul (150-450)
[2017-10-15 11:26] LABS: EGFR Non-African American 99.2 (>60)
[2017-10-15] MEDS ORDERED: Warfarin TAB(*) 2 MG PO ONE (17:00)
--- NOTE | 2017-10-15 17:59 | PN ---
Subjective Date of Service: 10/15/17 Interval History: Pt seen and examined. Meds and labs reviewed. Pt transferred to ICU last night due to concerns for frequent VTs. Pts rhythm strips and EKG reviewed by Dr. Shahid early this AM and RN informed me that he was not really in VT. Reviewed strips and rhythm available and it does seem junctional given presence of fused p waves. Will defer with Dr. Shahid CC: N/A ROS: Denied CROW/dizziness, F/C, N/V, CP, SOB, increased cough, sputum production , abd pain, diarrhea, constipation, dysuria, myalgias, arthralgias, throat pain , and new skin lesions. The rest of the 14 point ROS are unremarkable. PHYSICAL EXAM: GEN APPEARANCE: Awake, not in acute distress HEENT: NC/AT, PERRLA, moist oral mucosa, (-) throat erythema NECK: Soft, supple, (-) cervical LAD, (-)JVD HEART: S1S2 WNL, RRR, No MRG CHEST: CTA, BL, GAE, No W/R/R ABD: Soft, ND/NT, NABS 4x Q EXT: No C/C/E SKIN: Warm to touch PSYCH: No active psychosis, hallucinations, depression, SI/HI Family History: Unchanged from Admission Social History: Unchanged from Admission Past Medical History: Unchanged from Admission Objective Active Medications: Acetaminophen (Tylenol Tab*) 650 mg PO Q8H [facility] Last Admin: 10/15/17 13:20 Dose: 650 mg Bisacodyl (Dulcolax Supp*) 10 mg [place] DAILY PRN PRN Reason: constipation Cyclobenzaprine HCl (Flexeril Tab*) 5 mg PO TID PRN PRN Reason: SPASMS Last Admin: 10/11/17 22:02 Dose: 5 mg Diphenhydramine HCl (Benadryl Iv*) 25 mg IV Q6H PRN PRN Reason: itching Docusate Sodium (Colace Cap*) 100 mg PO BID [facility] Last Admin: 10/15/17 09:53 Dose: 100 mg Lactated Ringer's (Lactated Ringers 1000 Ml Bag*) 1,000 mls @ 75 mls/hr IV PER RATE [facility] Last Admin: 10/15/17 02:18 Dose: 75 mls/hr Amiodarone HCl (Nexterone 360 Mg/200 Ml Ivpremix*) 360 mg in 200 mls @ 16.667 mls/hr IV .SEE PROTOCOL [facility] Lactulose (Lactulose*) 30 ml PO Q6H PRN PRN Reason: constipation Magnesium Hydroxide (Milk Of Magnesia Liq*) 30 ml PO BID [facility] Last Admin: 10/15/17 09:54 Dose: Not Given Magnesium Hydroxide (Milk Of Magnesia Liq*) 30 ml PO Q6H PRN PRN Reason: constipation Morphine Sulfate (Morphine Vial*) 2 mg IV Q2H PRN PRN Reason: PAIN Multivitamins (Theragran Tab*) 1 tab PO DAILY [facility] Last Admin: 10/15/17 09:54 Dose: Not Given Non-Formulary Medication (Flaxseed) 1 teasp PO DAILY [facility] Last Admin: 10/15/17 09:54 Dose: Not Given Ondansetron HCl (Zofran Inj*) 4 mg IV Q6H PRN PRN Reason: nausea Last Admin: 10/13/17 10:13 Dose: 4 mg Oxycodone HCl (Roxycodone Tab*) 10 mg PO Q4H PRN PRN Reason: PAIN - SEVERE Last Admin: 10/13/17 05:44 Dose: 5 mg Oxycodone/Acetaminophen (Percocet 5/325 Tab*) 1 tab PO Q4H PRN PRN Reason: PAIN Last Admin: 10/12/17 17:17 Dose: 1 tab Oxycodone/Acetaminophen (Percocet 5/325 Tab*) 2 tab PO Q4H PRN PRN Reason: PAIN Last Admin: 10/12/17 05:52 Dose: 2 tab Pharmacy Profile Note (Coumadin Daily Reminder*) 1 note FOLLOW UP 1700 [facility] Last Admin: 10/15/17 17:11 Dose: 1 note Vital Signs - 8 hr 10/15/17 10/15/17 10/15/17 10:00 10:15 10:45 Temperature Pulse Rate 66 65 70 Respiratory 18 16 15 Rate Blood Pressure 116/75 134/71 120/79 (mmHg) O2 Sat by Pulse 97 99 98 Oximetry 10/15/17 10/15/17 10/15/17 11:00 11:01 11:15 Temperature Pulse Rate 66 67 69 Respiratory 12 14 16 Rate Blood Pressure 132/69 127/83 (mmHg) O2 Sat by Pulse 97 97 98 Oximetry 10/15/17 10/15/17 10/15/17 11:30 11:55 12:59 Temperature 99.2 F 98.0 F Pulse Rate 71 Respiratory 17 16 Rate Blood Pressure 122/81 (mmHg) O2 Sat by Pulse 99 Oximetry 10/15/17 10/15/17 10/15/17 13:14 15:49 16:00 Temperature 98.0 F 98.2 F Pulse Rate 71 76 Respiratory 16 18 Rate Blood Pressure 112/81 109/63 (mmHg) O2 Sat by Pulse 99 96 96 Oximetry Oxygen Devices in Use Now: None Result Diagrams: 10/15/17 10:59 10/15/17 10:59 Microbiology and Other Data: Microbiology 10/15/17 04:14 Nasal Screen MRSA (PCR) - Final Nasal Mrsa Not Detected Assess/Plan/Problems-Billing Assessment: Patient is an 82yo male with a PMH for Mitral and Tricuspid valve repair, BPH, and OA who is here with an elective right knee repair complicated by syncope with an episode of asymptomatic ventricular tachycardia. - Patient Problems (1) Junctional escape beats Current Visit: Yes Status: Acute Code(s): I49.49 - OTHER PREMATURE DEPOLARIZATION SNOMED Code(s): 89741281 Comment: -Transferred pt out of ICU per Dr. Lackey assessment -?Bigeminys in some EKG???---On Amiodarone protocol---defer dis/continuation with Dr. Shahid -Will await further input from cardiology -Agree with transfer of pt to with tele (2) Post-operative state Current Visit: Yes Status: Acute Code(s): Z98.890 - OTHER SPECIFIED POSTPROCEDURAL STATES SNOMED Code(s): 77853397 Comment: #OA of right knee S/P, right TKR: -POD #4 - Cont PT/OT- WBAT - Continue with current pain medication -Defer with orthopedics (3) DVT prophylaxis Current Visit: Yes Status: Acute Code(s): DHD1274 - SNOMED Code(s): 032683092 Comment: -Pt to start on Warfarin today per orthopedics but on Warfarin at home due to A. fib Status and Disposition: -Defer with orth -Awaiting further input from Dr. Shahid/Cards
--- NOTE | 2017-10-15 21:42 | CONS ---
CC: Karyn Alvarez MD; Shad Estes MD CARDIOLOGY CONSULTATION: DATE OF CONSULT: 10/15/17 INDICATION FOR CONSULTATION: PVCs and junctional rhythm. HISTORY OF PRESENT ILLNESS: The patient is an 82-year-old gentleman with a history of mitral valve r epair back in 2008. At that time, he had a repair of his mitral and tricuspid valve. After his valv e surgery, he did have an episode of atrial fibrillation. The patient has showed no arrhythmias sinc e then. The patient had just undergone total knee replacement last week. He was recovering on the s urgical floor where he had an episode of hypotension. A CAT team was called and the patient was note d to be significantly hypotensive. He was fluid resuscitated and his symptoms resolved. The patient was transferred to the telemetry floor for observation. On the telemetry floor, the patient was hav ing frequent PVCs. He was also having slow ventricular rhythms that was diagnosed as ventricular tac hycardia. The patient was subsequently transported to the intensive care unit and started on an amiod arone drip. In speaking with the patient, he has no symptoms whatsoever. He has no palpitations. No lightheaded ness, no chest pain, no orthopnea. The patient did get an echocardiogram yesterday, which showed normal LV size and systolic function an d normal valves. No significant valvular regurgitation. There was some question of right heart hypo kinesis. The patient subsequently had a CTA of his chest to rule out pulmonary embolism. His CTA of the chest was negative. No evidence of pulmonary embolism. In speaking with the patient this morning, he has no complaints. PAST MEDICAL HISTORY: Significant for mitral and tricuspid repair, severe arthritis, hypercholestero lemia. PAST SURGICAL HISTORY: Mitral and tricuspid valve repair in 2008, knee replacement 1 week ago, left inguinal hernia repair, tonsillectomy. OUTPATIENT MEDICATIONS: Glucosamine and chondroitin. No other medications. Current medications: 1. Amiodarone drip, which has been discontinued. 2. Benadryl. 3. Lactulose. 4. Zofran. 5. The patient is being started on Coumadin for his knee replacement. ALLERGIES: No known drug allergies. SOCIAL HISTORY: He is retired. He denies tobacco or alcohol use. He is very active and exercises r egularly. He is . He is a retired professor. Denies tobacco or alcohol use. PHYSICAL EXAM: Height is 5 feet and 8 inches, weight is 148 pounds. Temperature 98.2, heart rate is 71, blood pressure 112/81, oxygen saturation 99% on room air. Sclerae anicteric. Oropharynx is pink without erythema. Carotids are 2+ without bruits. JVD is normal. Thyroid is normal. Cardiac: S1 , S2 without any murmurs, rubs, or gallops. Lungs are clear to auscultation bilaterally. There is n o dullness to percussion. Abdomen is soft, nontender, nondistended with normoactive bowel sounds. E xtremities show no edema. He has 2+ pulses throughout. The patient is awake, alert, and oriented. He moves all 4 extremities equally. DIAGNOSTIC STUDIES/LAB DATA: EKG shows normal sinus rhythm with frequent PVCs. Laboratory studies: CBC within normal limits. Chemistry is within normal limits. BUN and creatinine are normal. Calcium is slightly low. Magnesium level is normal at 2.0. Potassium level is 4.0. T otal cholesterol 151, LDL cholesterol of 75. At the time of the patient's mitral valve repair, he had normal coronary arteries in 2008. IMPRESSION: This is an 82-year-old gentleman who was admitted to the hospital with knee replacement. He had an episode of hypotension likely due to dehydration and increased vagal tone. On the monito r, he was showing frequent PVCs and runs of junctional rhythm when he was asleep. The patient has no symptoms associated with any of these arrhythmias. The patient's echocardiogram is normal. His laboratory studies are normal. At this point, I do not think any other further workup is necessary. I think his rhythm issues are b enign. I do not think the patient needs to be on any additional medications. The patient should ret urn to the surgical unit and continue his rehab for his knee. I will see the patient in followup as an outpatient. [id number]/[facility] #: [id number]
[2017-10-16] MEDS: Acetaminophen TAB* 325 MG PO SCH ×2 (05:02→13:35)
[2017-10-16 06:06] LABS: ABS Basophils 0 10^3/ul (0-0.2); ABS Eosinophils 0.1 10^3/ul (0-0.6); ABS Monocytes 0.5 10^3/ul (0-0.8); ABS Neutrophils 3.2 10^3/ul (1.5-7.7); ABS Nucleated RBC 0 10^3/ul; Eosinophil % 2.2 % (0-6); Hematocrit 33 % (42-52); Hemoglobin 11.3 g/dl (14.0-18.0); Lymphocyte % 20.4 % (25-47); Mean Corpuscular HGB Conc 35 g/dl (31-36); Mean Corpuscular Hemoglobin 34 pg (27-31); Mean Corpuscular Volume 97 fL (80-94); Mean Platelet Volume 7.8 um3 (7.4-10.4); Nucleated Red Blood Cells % 0; Platelet Count 146 10^3/ul (150-450); Red Blood Count 3.38 10^6/ul (4.00-5.40); Red Cell Distribution Width 15 % (10.5-15); White Blood Count 4.9 10^3/ul (3.5-10.8)
[2017-10-16 06:11] LABS: INR 2.12 (0.77-1.02)
[2017-10-16 06:24] LABS: EGFR Non-African American 102.4 (>60)
[2017-10-16] MEDS: Magnesium Hydroxide LIQ* 30 ML UDC PO SCH (07:12)
[2017-10-16] MEDS: FLAXSEED PO SCH (09:12)
[2017-10-16] MEDS: Docusate CAP* 100 MG PO SCH (09:20)
[2017-10-16] MEDS: Vitamin THERAPEUTIC TAB PO SCH (09:20)
[2017-10-16 12:11] VITALS: BP 118/70
--- NOTE | 2017-10-16 13:14 | PN ---
Progress Note - Progress Note Date of Service: 10/16/17 SOAP: Subjective: []Patient seen at bedside. He is ready for discharge. Denies chest pain, shortness of breath, dizziness, nausea or right knee pain. He was seen by Cardiology, Dr. Shahid, and no changes were made to his medications Objective: []General: Well appearing, NAD RLE: Dressing changed. Incision CDI without discharge or surrounding erythema. Thigh soft. DF/PF intact. DP2+, capillary refill less than two seconds distally. Sensation intact distally. BL LE: calves supple and nontender without erythema, edema or palpable cord s Assessment: []POD 5 sp RTKA Plan: - Cont PT/OT- WBAT - Continue with current pain medication - coumadin 2 mg today - DC home today Vital Signs Temp 98.3 F 10/16/17 11:37 Pulse 67 10/16/17 11:37 Resp 16 10/16/17 11:37 BP 118/70 10/16/17 11:37 Pulse Ox 99 10/16/17 11:37 Intake & Output 10/15/17 10/16/17 10/16/17 18:59 06:59 18:59 Intake Total 480 500 360 Output Total 730 975 200 Balance -250 -475 160 Intake: Oral 480 500 360 Output: Urine 730 975 200 Other: Estimated Stool Amount Medium Laboratory Last Values WBC 4.9 10^3/ul (3.5-10.8) 10/16/17 05:50 RBC 3.38 10^6/ul (4.00-5.40) L 10/16/17 05:50 Hgb 11.3 g/dl (14.0-18.0) L 10/16/17 05:50 Hct 33 % (42-52) L 10/16/17 05:50 MCV 97 fL (80-94) H 10/16/17 05:50 MCH 34 pg (27-31) H 10/16/17 05:50 MCHC 35 g/dl (31-36) 10/16/17 05:50 RDW 15 % (10.5-15) 10/16/17 05:50 Plt Count 146 10^3/ul (150-450) L 10/16/17 05:50 MPV 7.8 um3 (7.4-10.4) 10/16/17 05:50 Neut % (Auto) 65.6 % (38-83) 10/16/17 05:50 Lymph % (Auto) 20.4 % (25-47) L 10/16/17 05:50 [place] % (Auto) 11.1 % (0-7) H 10/16/17 05:50 Eos % (Auto) 2.2 % (0-6) 10/16/17 05:50 Baso % (Auto) 0.7 % (0-2) 10/16/17 05:50 Absolute Neuts (auto) 3.2 10^3/ul (1.5-7.7) 10/16/17 05:50 Absolute Lymphs (auto) 1.0 10^3/ul (1.0-4.8) 10/16/17 05:50 Absolute Monos (auto) 0.5 10^3/ul (0-0.8) 10/16/17 05:50 Absolute Eos (auto) 0.1 10^3/ul (0-0.6) 10/16/17 05:50 Absolute Basos (auto) 0 10^3/ul (0-0.2) 10/16/17 05:50 Absolute Nucleated RBC 0 10^3/ul 10/16/17 05:50 Nucleated RBC % 0 10/16/17 05:50 INR (Anticoag Therapy) 2.12 (0.77-1.02) H 10/16/17 05:50 Sodium 139 mmol/L (135-145) 10/16/17 05:50 Potassium 4.0 mmol/L (3.5-5.0) 10/16/17 05:50 Chloride 106 mmol/L (101-111) 10/16/17 05:50 Carbon Dioxide 27 mmol/L (22-32) 10/16/17 05:50 Anion Gap 6 mmol/L (2-11) 10/16/17 05:50 BUN 14 mg/dL (6-24) 10/16/17 05:50 Creatinine 0.73 mg/dL (0.67-1.17) 10/16/17 05:50 Est GFR ( Amer) 123.9 (>60) 10/16/17 05:50 Est GFR (Non-Af Amer) 102.4 (>60) 10/16/17 05:50 BUN/Creatinine Ratio 19.2 (8-20) 10/16/17 05:50 Glucose 102 mg/dL (70-100) H 10/16/17 05:50 Hemoglobin A1c 5.5 % (4.0-5.6) 10/14/17 06:10 Calcium 8.1 mg/dL (8.6-10.3) L 10/16/17 05:50 Phosphorus 2.6 mg/dL (2.5-5.0) 10/16/17 05:50 Magnesium 2.0 mg/dL (1.9-2.7) 10/16/17 05:50 Total Bilirubin 1.00 mg/dL (0.2-1.0) 10/16/17 05:50 AST 19 U/L (13-39) 10/16/17 05:50 ALT 12 U/L (7-52) 10/16/17 05:50 Alkaline Phosphatase 32 U/L (34-104) L 10/16/17 05:50 Troponin I 0.01 ng/mL (<0.04) 10/13/17 16:01 B-Natriuretic Peptide 156 pg/mL (-100) H 10/15/17 10:59 Total Protein 5.7 g/dL (6.4-8.9) L 10/16/17 05:50 Albumin 3.1 g/dL (3.2-5.2) L 10/16/17 05:50 Globulin 2.6 g/dL (2-4) 10/16/17 05:50 Albumin/Globulin Ratio 1.2 (1-3) 10/16/17 05:50 Triglycerides 76 mg/dL 10/14/17 06:05 Cholesterol 150 mg/dL 10/14/17 06:05 LDL Cholesterol 75 mg/dL 10/14/17 06:05 HDL Cholesterol 59.8 mg/dL 10/14/17 06:05
--- NOTE | 2017-10-16 23:48 | DS ---
DISCHARGE SUMMARY: DATE OF ADMISSION: 10/11/17. DATE OF DISCHARGE: 10/16/17. PROVIDER: Dr. Karyn Alvarez. SURGEON: Dr. Karyn Alvarez* (dictated by NEVIN Perkins). MARKETING ADMINISTRATOR: NEVIN Lucia. PREOPERATIVE DIAGNOSIS: Severe end-stage degenerative osteoarthritis of the right knee joint. OPERATIVE PROCEDURE: Right total knee arthroplasty. HISTORY: Mr. Hickey is an 82-year-old gentleman with years of increasingly severe right knee pain. He failed conservative management and elected to undergo a right total knee arthroplasty. HOSPITAL COURSE: The patient was admitted to [facility] on . He underwent a right total knee arthroplasty without complications. He recovered briefly in the PACU and was transferred to the Short-Stay Surgical Unit in stable condition. Postop day 1, he was well-appearing in no acute distress. On postop day 2, his dressing was changed. Incision was clean, dry, and intact. Dorsiflexion and plantarflexion of the ankle were intact. DP pulse 2+. On postop day 3, he was seen by Medicine due to presyncopal episodes with concerns for possible ischemia. He had an 8-beat run of v-tach this morning when at rest and a Cardiology consult was put in and he was transferred to the ICU. The patient was seen by Dr. Shahid on 10/15/17 whose impression included that the patient had an episode of hypotension likely due to dehydration and increased vagal tone. He was showing frequent PVCs and runs of junctional rhythm on the monitor while he was asleep. Interpretation of echocardiogram was normal and laboratory studies are normal. Recommendation per Dr. Shahid is no further cardiac workup necessary. The patient's rhythm issues are benign and does not need to be on any additional medications. He was transferred back to the short stay surgical unit and on , his dressing was changed and incision was clean, dry and intact without surrounding erythema, no discharge. The patient was deemed to be medically and orthopedically stable for discharge to home. Laboratory studies included hemoglobin of 11.3, hematocrit 33, INR is 2.12. DISCHARGE MEDICATIONS: New medications include: 1. Docusate 100 mg p.o. b.i.d. 2. Percocet 5/325 one to two tabs every 4 to 6 hours p.r.n. max daily dose of 10. 3. Morphine 2 mg tabs 0 to 5 tablets daily depending on INR. DISCHARGE PLAN: Weightbearing as tolerated. The patient may shower. Do not submerge the wound. Continue Coumadin for DVT prophylaxis, dosing 10/16/17 of 2 mg; 10/17/17 of 2 mg; 10/18/17 redraw INR. Pain control Percocet 5/325 mg 1 to 2 tabs by mouth every 4 to 6 hours as needed for pain, max of 10 tablets per day. Follow up with Dr. Alvarez in 10 to 14 days. NEVIN RODRÍGUEZ [id number]/[facility] #: [id number] MTDD
== END 2017-10-16 16:35 | disposition home health service (06) | DRG 470 ==
LOC: AA 12:29 → SSU 18:15 → ICU 10-15 03:56 → SSU 10-15 10:28
PROVIDERS: ADMIT Orthopaedic Surgery Adult Reconstructive Orthopaedic Surgery; ATTEND Orthopaedic Surgery Adult Reconstructive Orthopaedic Surgery
PROC: 0SRC0J9 Replacement of Right Knee Joint with Synthetic Substitute, Cemented, Open Approach (ICD-10-PCS; principal; 2017-10-11 15:00)
DX: M17.11 Unilateral primary osteoarthritis, right knee (principal); I42.9 Cardiomyopathy, unspecified; M25.461 Effusion, right knee; I48.91 Unspecified atrial fibrillation; N40.0 Benign prostatic hyperplasia without lower urinary tract symptoms; I27.20 Pulmonary hypertension, unspecified; E78.00 Pure hypercholesterolemia, unspecified; K40.90 Unilateral inguinal hernia, without obstruction or gangrene, not specified as recurrent; M25.761 Osteophyte, right knee; I99.8 Other disorder of circulatory system; I95.9 Hypotension, unspecified; E86.0 Dehydration; I47.2 Ventricular tachycardia; R55 Syncope and collapse; I49.3 Ventricular premature depolarization
CPT/HCPCS: 36415; 71275; 80048; 80053; 80061; 83036; 83735; 83880; 84100; 84484; 85014; 85018; 85025; 85049; 85610; 87641; 88305; 88311; 93005; 93306; 94762; A9270-GY; C1776; G8978-GP-CL; G8979-GP-CJ; G8987-GO-CI; G8988-GO-CI; G8989-GO-CI; J0282; J0690; J1650; J2250; J2405; J2704; J3010; Q9967

== ENCOUNTER 2019-04-15 11:53 | Emergency (ER) | payer MEDICARE, OTHER ==
--- NOTE | 2019-04-15 12:06 | ED ---
Adult Trauma - HPI Summary HPI Summary: Patient is an 83 y/o M presenting to the ED for a chief complaint of epistaxis after a fall that occurred on 04/15/19. Patient states that he tripped and fell down 5-6 steps of stairs, hitting his nose. After the fall, he began to bleed from the nose. Patient denies myalgia, abdominal pain, headache, or loss of consciousness. Any significant PMHx, PSHx, or medications are denied. Patient denies alcohol, tobacco, or drug use. Last tetanus vaccination is unknown. Medications reviewed. Allergies noted. - History of Current Complaint Stated Complaint: FALL-FACIAL INJURIES PER EMS Time Seen by Provider: 04/15/19 11:59 Hx Obtained From: Patient Mechanism of Injury: Fall Ambulatory at the Scene: No Loss of Consciousness: no loss of consciousness Onset of Pain: Immediate Onset Severity: Moderate Current Severity: Moderate Pain Scale Used: 0-10 Numeric Location: Head - Nose Aggravating Factor(s): Nothing Alleviating Factor(s): Nothing Associated Signs & Symptoms: Negative: Abdominal Pain, Loss of Consciousness - Additional Pertinent History Primary Care Physician: MARYSOL - Allergy/Home Medications Allergies/Adverse Reactions: Allergies Allergy/AdvReac Type Severity Reaction Status Date / Time No Known Allergies Allergy Verified 10/11/17 12:45 PMH/Surg Hx/FS Hx/Imm Hx Previously Healthy: Yes Endocrine/Hematology History: Denies: Hx Diabetes Cardiovascular History: Reports: Hx Valvular Heart Disease - Mitral valve repair 2008, Other Cardiovascular Problems/Disorders - hypercholesterolemia Respiratory History: Denies: Other Respiratory Problems/Disorders GI History: Denies: Other GI Disorders History: Reports: Other Problems/Disorders - Biopsies of prostate have been negative, BPH Denies: Hx Renal Disease Musculoskeletal History: Reports: Hx Arthritis - Osteoarthritis right knee, Hx Tendonitis - achilles tendinitis, was a runner Denies: Other Musculoskeletal History Sensory History: Reports: Hx Cataracts - Bilateral removed, Hx Contacts or Glasses - Reading glasses, Hx Glaucoma - Bilateral Trabeculectomy 2014, Hx Hearing Aid - Bilateral, only wears them when in a big meeting Denies: Hx Legally Blind, Hx Deafness Opthamlomology History: Reports: Hx Cataracts - Bilateral removed, Hx Contacts or Glasses - Reading glasses, Hx Glaucoma - Bilateral Trabeculectomy 2014 Denies: Hx Legally Blind EENT History: Denies: Hx Deafness Neurological History: Denies: Other Neuro Impairments/Disorders Psychiatric History: Denies: Other Psychiatric Issues/Disorders - Surgical History Surgical History: Yes Surgery Procedure, Year, and Place: Mitral Valve Repair 2008. Trabeculectomy 2014. Bilateral Cataracts 2015. Tonsillectomy Hx Anesthesia Reactions: No Infectious Disease History: No Infectious Disease History: Denies: History Other Infectious Disease - Family History Known Family History: Negative: Diabetes - Social History Occupation: Retired Lives: With Family Alcohol Use: None Hx Substance Use: No Substance Use Type: Reports: None Hx Tobacco Use: No Smoking Status (MU): Never Smoked Tobacco Review of Systems Positive: Epistaxis Negative: Abdominal Pain Negative: Myalgia Negative: Headache, Syncope - LOC All Other Systems Reviewed And Are Negative: Yes Physical Exam - Summary Physical Exam Summary: Constitutional: Well-developed, Well-nourished, Alert. (-) Distressed Skin: Warm, Dry HENT: Normocephalic; Atraumatic. 2 cm laceration to the bridge of nose that follows the angle of the nose, small pinpoint laceration to the nasal fold, no septal hematoma. Eyes: Conjunctiva normal Neck: Musculoskeletal ROM normal neck. (-) JVD, (-) Stridor, (-) Tracheal deviation Cardio: Rhythm regular, rate normal, Heart sounds normal; Intact distal pulses; Radial pulses are 2+ and symmetric. (-) Murmur Pulmonary/Chest wall: Effort normal. (-) Respiratory distress, (-) Wheezes, (-) Rales Abd: Soft, (-) tenderness, (-) Distension, (-) Guarding, (-) Rebound Musculoskeletal: (-) Edema Lymph: (-) Cervical adenopathy Neuro: Alert, Oriented x3 Psych: Mood and affect Normal Triage Information Reviewed: Yes Vital Signs Reviewed: Yes - [place] Coma Scale Best Eye Response: 4 - Spontaneous Best Motor Response: 6 - Obeys Commands Best Verbal Response: 5 - Oriented Coma Scale Total: 15 Procedures - Sedation Patient Received Moderate/Deep Sedation with Procedure: No - Laceration/Wound Repair 1 Location: face - Nose Description: Irregular Anesthesia: 1.0%, Lido - 4 cc Length, Depth and Shape: 2 cm laceration to the bridge of nose that follows the angle of the nose, small pinpoint laceration to the nasal fold. Complex laceration with moderate cosmesis. Laceration/Wound Explored: clean Suture Type: Other - 5 4-0 sutures Number of Sutures: 5 Diagnostics - Laboratory Lab Statement: Any lab studies that have been ordered have been reviewed, and results considered in the medical decision making process. - CT Brain CT CT Interpretation Completed By: Radiologist Summary of CT Findings: Brain CT IMPRESSION: 1. No acute intracranial abnormality. 2. Multiple maxillofacial fractures as above. (Better characterized by maxillofacial CT). Reviewed by Dr. Diaz. Maxillofacial CT CT Interpretation Completed By: Radiologist Summary of CT Findings: Maxillofacial CT IMPRESSION: 1. SEVERELY COMMINUTED DISPLACED FRACTURE OF THE NASAL BONES. EMPHYSEMA IN THE SURROUNDING SOFT TISSUES. 2. BILATERAL FRACTURES OF THE FRONTAL PROCESS OF THE MAXILLA. 3. COMMINUTED DISPLACED FRACTURE OF THE NASAL SEPTUM. 4. SMALL CHIP FRACTURE OF THE ANTERIOR NASAL SPINE OF THE MAXILLA. Reviewed by Dr. Diaz. Cervical Spine CT CT Interpretation Completed By: Radiologist Summary of CT Findings: Cervical Spine CT IMPRESSION: #. No CT evidence for traumatic cervical spine injury. #. Multilevel advanced degenerative arthropathy with associated acquired spinal stenosis. Reviewed by Dr. Diaz. Adult Trauma Course/Dx - Course Course Of Treatment: Patient is here after a mechanical fall. Patient has a laceration to his nose. Patient is evidence of septal hematoma. Patient's CT scan of his brain, cervical spine, maxillofacial showed a complex nasal fracture. ENT at [facility] was called and they recommended Afrin 3 times a day and follow up in clinic with them on . Patient had his laceration repaired and was started on antibiotics for possible open nasal fracture. - Diagnoses Provider Diagnoses: Maxillary fracture, Nasal fracture, Fall - Physician Notifications Discussed Care Of Patient With: Luciana Verdugo - At 14:14, Dr. Luciana Verdugo at [facility] recommends no nose blowing, afferent ENT, head of bed elevated, and have the patient follow up with him on . Time Discussed With Above Provider: 14:14 Instructed by Provider To: Have Pt Call For Appt. Discharge ED - Sign-Out/Discharge Documenting (check all that apply): Patient Departure - Discharge - Discharge Plan Condition: Stable Disposition: HOME Prescriptions: Cephalexin CAP* [Keflex CAP*] 500 mg PO TID #21 cap Oxymetazoline 0.05% NASAL SPR* [Afrin 0.05% NASAL SPRAY*] 1 spray NASAL TID #1 btl Patient Education Materials: Nasal Fracture (ED) Referrals: Shad Estes MD [Primary Care Provider] - Additional Instructions: PLEASE RETURN TO EMERGENCY DEPARTMENT FOR ANY NEW OR WORSENING SYMPTOMS. Please follow up with your primary care physician. Please make all follow-ups in 1-3 days unless I advise you otherwise. Do not blow your nose. Call Dr. Lucaina Verdugo and to follow up with him on . Luciana Verdugo MD, MPH - Billing Disposition and Condition Condition: STABLE Disposition: Home - Attestation Statements Document Initiated by Yana: Yes Documenting Scribe: Briana Guerrier Provider For Whom Yana is Documenting (Include Credential): Jerry Diaz MD Scribe Attestation: Briana Everett, scribed for Jerry Diaz MD on 04/15/19 at 1556. Scribe Documentation Reviewed: Yes Provider Attestation: The documentation as recorded by the Briana watson accurately reflects the service I personally performed and the decisions made by , Jerry Diaz MD Status of Scribe Document: Viewed
[2019-04-15] MEDS: Lidocaine 1% MPF ** 5 ML VIAL INJ ONE (12:24)
[2019-04-15] MEDS: Tetan/Diph/Pertus SYR(Tdap)* 0.5 ML SYR(BOOSTRIX) use SYR contains LATEX IM ONE (12:25)
--- OUTSIDE RECORDS SUMMARY | 2019-04-15 13:08 | XMS REPORT | Continuity of Care Document ---
:1935 External Reference #:[id number] Author Name Shad Estes M.D. (transmitted by agent of provider Kylee Romero ) Address [address], [place] [address] Care Team Providers Name Role Phone Ruddy Shahid MD - Cardiovascular Care Team Information Treating Plant Operator [phone] Disease Problems Active Problems Provider Date Pure hypercholesterolemia Shad Estes M.D. Onset: 05/25/2011 Mitral valve disorder Shad Estes M.D. Onset: 05/25/2011 Disorder of prostate Shad Estes M.D. Onset: 10/24/2012 Mitral leaflet abnormality Shad Estes M.D. Onset: 02/11/2015 Localized, primary osteoarthritis of Delgado Guerrier MD Onset: 04/07/2016 the hand Atrial fibrillation Virgil Vazquez MD Onset: 10/15/2017 Premature beats Virgil Vazquez MD Onset: 10/15/2017 Pulmonary hypertension NEVIN Mathew Onset: 10/14/2017 Paroxysmal ventricular tachycardia NEVIN Mathew Onset: 10/14/2017 Arthroplasty of knee NEVIN Mathew Onset: 10/14/2017 Syncope and collapse Renee Jean M.D. Onset: 10/13/2017 Localized, primary osteoarthritis Karyn Alvarez M.D. Onset: 09/14/2017 Social History Type Date Description Comments Sex Unknown Tobacco Use Start: Unknown Never Smoked Cigarettes ETOH Use 10/24/2012 Occasionally consumes alcohol Tobacco Use Start: Unknown Patient is a former Smoked for 2yrs-pipe End: Unknown smoker smoke-tobacco Recreational Drug Use Denies Drug Use Smoking Status Reviewed: 04/03/19 Patient is a former Smoked for 2yrs-pipe smoker smoke-tobacco Exercise Type/Frequency Exercises regularly daily exercise. Walks to work daily [address]. and : cycle, M-W- rows. Summer he cycles to work 10-[address] M-W-F row 50min, Sun- walks 4 mi to [place] Allergies, Adverse Reactions, Alerts Description No Known Drug Allergies Medications Active Medications SIG Qnty Indications Ordering Provider Date Amoxicillin take 4 pills, 2 g 4caps Karyn Alvarez, 12/25/2017 500mg 1 hour before M.D. Capsules dental or gi procedure Dorzolamide Instill 1 Drop Unknown HCL/Timolol Maleate Into Right Eye Two Times A Day 22.3-6.8mg/ml Solution Medications Administered in Office Medication SIG Qnty Indications Ordering Provider Date Depomedrol 40MG Karyn Alvarez M.D. 09/14/2017 Injection Celestone 3 mg and 3mg Delgado Guerrier MD 04/07/2016 Injection Immunizations CPT Code Status Date Vaccine Reaction Lot # [id number] Given 02/18/2018 Influenza Virus Vaccine, No immediate reaction [id number] Quadrivalent, Split, noted. Preservative Free [id number] Given 02/11/2015 Pneumococcal Conjugate [id number] Vaccine 13 Valent For Intramuscular Use 73740 Given 05/25/2011 Tetanus And Diptheria (Td) [id number] For Adult Use Preservative Free [id number] Given 11/16/1998 Pneumovax (History By 138iu Patient) Vital Signs Date Vital Result Comment 04/03/2019 3:54pm Height 68 inches 5'8" Weight 137.00 lb Heart Rate 65 /min BP Systolic Sitting 109 mmHg BP Diastolic Sitting 71 mmHg O2 % BldC Oximetry 99 % BMI (Body Mass Index) 20.8 kg/m2 12/06/2018 9:08am Height 68 inches 5'8" Weight 136.00 lb BP Systolic 120 mmHg BP Diastolic 84 mmHg Body Temperature 97.8 F BMI (Body Mass Index) 20.7 kg/m2 Results Test Acquired Date Facility Test Result H/L Range Note Lipid Profile 03/25/2019 [facility] Triglycerides 75 mg/dL 1 (Trig/Chol/HDL) [address] [place] [address] [phone] Cholesterol 199 mg/dL 2 HDL Cholesterol 55.2 mg/dL 3 LDL Cholesterol 129 mg/dL 4 Basic Metabolic 03/25/2019 [facility] Sodium 143 mmol/L Normal 135-[address] [place] [address] [phone] Potassium 4.2 mmol/L Normal 3.5-5.0 Chloride 107 mmol/L Normal 101-111 Co2 Carbon Dioxide 31 mmol/L Normal 22-32 Anion Gap 5 mmol/L Normal 2-11 Glucose 89 mg/dL Normal 70-100 Blood Urea Nitrogen 22 mg/dL Normal 6-24 Creatinine 0.92 mg/dL Normal 0.67-1.17 BUN/Creatinine Ratio 23.9 High 8-20 Calcium 8.9 mg/dL Normal 8.6-10.3 Egfr Non- 78.2 >60 Egfr 94.6 >60 5 Laboratory test 03/25/2019 [facility] PSA Screening 7.250 High 0-4.000 [address] ng/[place] [address] [phone] 1 Desirable: <150 Borderline High: 150-199 High: 200-499 Very High: >500 2 Desirable: <200 Borderline High: 200-239 High: >239 3 Low: <40 Desirable: 40-60 High: >60 4 Desirable: <100 Near Optimal: 100-129 Borderline High: 130-159 High: 160-189 Very High: >189 5 Because ethnic data is not always readily [...] 15-29 5 Kidney failure <15 (or dialysis) 6 Serum levels of PSA measured using the [employer] DXI Hybritech immunoassay should not be interpreted as absolute evidence of the presence or absence of disease. The PSA value should be used in conjunction with other pertinent clinical diagnostic procedures. The values obtained with different assay methods or kits cannot be used interchangeably. Procedures Date Code Description Status 08/02/2010 99660073 Colonoscopy Completed Medical Devices Description No Information Available Encounters Type Date Location Provider Dx Diagnosis Office Visit 12/06/2018 [facility] Karyn Alvarez, Z96.651 Presence of right 9:00a at [place] [facility] artificial knee joint M25.561 Pain in right knee Z47.1 Aftercare following joint replacement surgery Assessments Date Code Description Provider 04/03/2019 Z00.00 Encounter for general adult medical Shad Estes M.D. examination without abnormal findings 04/03/2019 I34.9 Nonrheumatic mitral valve disorder, Shad Estes M.D. unspecified 04/03/2019 E78.00 Pure hypercholesterolemia, unspecified Shad Estes M.D. 04/03/2019 N40.1 Benign prostatic hyperplasia with lower Shad Estes M.D. urinary tract sympto 12/06/2018 Z96.651 Presence of right artificial knee joint Karyn Alvarez M.D. 12/06/2018 M25.561 Pain in right knee Karyn Alvarez M.D. 12/06/2018 Z47.1 Aftercare following joint replacement Karyn Alvarez M.D. surgery Plan of Treatment 04/03/2019 - Shad Estes M.D.Z00.00 Encounter for general adult medical examination without abnormal findingsComments:Discussed the new shingles vaccine ; other shots current. (+) dental, eye exams. Pt continues to exercise regularlyFollow up:yearly or prnI34.9 Nonrheumatic mitral valve disorder, unspecifiedComments:Stable with cardiology efpypuguW39.00 Pure hypercholesterolemia, unspecifiedComments:Diet rx only; cardiac risk score this year 23.9%, 0.1% lower than an ideal 83 yr old. As score over20%, statin Rx indicated, but after review of risk scoring and Rx options, pt elects to continue lifestyle RxN40.1 Benign prostatic hyperplasia with lower urinary tract symptoComments:Stable 1-2x nocturia with no other changes. PSA 7.25 this year, up from 5.9 in Feb 2017. Discussedurology eval again, but pt declines Functional Status Description No Information Available Mental Status Description No Information Available Referrals Description No Information Available
[2019-04-15 15:17] VITALS: BP 149/84
== END 2019-04-15 15:14 | disposition home or self-care (01) ==
LOC: ED 11:53
DX: S02.40DA Maxillary fracture, left side, initial encounter for closed fracture (principal); S02.40CA Maxillary fracture, right side, initial encounter for closed fracture; S02.2XXA Fracture of nasal bones, initial encounter for closed fracture; Z23 Encounter for immunization; W10.9XXA Fall (on) (from) unspecified stairs and steps, initial encounter; Y92.9 Unspecified place or not applicable; E78.00 Pure hypercholesterolemia, unspecified; N40.0 Benign prostatic hyperplasia without lower urinary tract symptoms
CPT/HCPCS: 12011; 70450; 70486; 72125; 90471; 90715; 99283